=== PATIENT | male | born 1945 | race Caucasian/White ===

== ENCOUNTER 2018-06-06 09:53 | Inpatient (IN) | payer OTHER, SELFPAY ==
[2018-05-29 10:37] VITALS: BMI 33.7
[2018-05-29 13:58] VITALS: BMI 33.7
[2018-06-06] VITALS (15 sets, daily range): BP systolic 118–163; BP diastolic 58–92; PULSE 58–82; RESP 6–26; TEMP 36.1–36.8; O2SAT 92–99; BMI 33.7
--- NOTE | 2018-06-06 | DI.RAD.S_ITS ---
PROCEDURE: XR LUMBAR SPINE 2-3V INDICATIONS: L5-S1 TLIF TECHNIQUE: Fluoroscopic images were obtained during an operative procedure and submitted for interpretation following the completion of the procedure. COMPARISON: [facility] Outside Film, CT, CT LUMBAR SPINE WITHOUT CONTRAST, 04/24/2018, 18:56. [facility], , L-SPINE 2-3 VIEWS, 06/23/2016, 9:07. FINDINGS: These fluoroscopic images were performed for intraoperative localization. On these images, pedicle screws are seen from L2-S1. Disc spacers are seen throughout the fused region. No emma intraoperative complication is seen. Please correlate with intraoperative findings. IMPRESSION: Normal intraoperative examination. Dictated by: Cas Soria M.D. on 06/06/2018 at 15:48 Approved by: Cas Soria M.D. on 06/06/2018 at 15:49
[2018-06-06] MEDS: LACTATED RINGERS 1,000 ML 42 ML IV ×2 (10:47→15:14)
[2018-06-06] MEDS: fentaNYL 100 MCG/2 ML INJ 50 MCG IV ×3 (10:52→12:25)
--- NOTE | 2018-06-06 11:36 | PM.PREOP ---
Pre-operative Note Interval Note Pre-op Check: Yes History & Physical Reviewed by Physician, Yes Exam Performed and Yes History & Physical exam performed today by Physician Changes: No
[2018-06-06] MEDS: CEFAZOLIN 2 GM/100 ML FROZ.PIGGY IV ×2 (12:29→20:29)
--- NOTE | 2018-06-06 13:35 | SUR.OPER ---
Prone on spine table, head in foam head support, padded chest and pelvic supports, gel pad at knees, lower legs supported by pillows; nipples, genitalia and toes free of pressure, arms secured on foam padded arm boards at <90 degrees abduction. Tape over blanket at thigh secured to table.
[2018-06-06] MEDS: BUPIVACAINE 0.25% W/ EPI VIAL 50 ML INJ (13:42)
[2018-06-06] MEDS: BUPIVACAINE LIPOSOME 266 MG/20 ML VIAL INJ (13:42)
--- NOTE | 2018-06-06 13:44 | PM.CN ---
History of Present Illness Chief complaint: [id number] [facility] Medical History AV block, complete (Acute) Anxiety (Acute) Arrhythmia (Acute) Back pain (Acute) Cardiomyopathy (Acute) Chest heaviness (Acute) Chronic combined systolic and diastolic congestive heart failure (Acute) Coronary atherosclerosis of artery bypass graft (Acute) DVT (deep venous thrombosis) (Acute ~03/11/07) Dizziness (Acute) Dyspnea (Acute) Erectile dysfunction (Acute) GERD (gastroesophageal reflux disease) (Acute) H/O Doppler ultrasound (Acute) H/O echocardiogram (Acute) Heart failure (Acute) History of angina (Acute) History of changing skin mole (Acute ~05/23/18) History of esophageal spasm (Acute) History of nuclear stress test (Acute) Hyperlipidemia (Acute) LBBB (left bundle branch block) (Acute) Loosening of hardware in spine (Acute) Murmur (Acute) Myocardial infarction (Acute ~1985) Other specified forms of chronic ischemic heart disease (Acute) Pacemaker (Acute) Precordial pain (Acute) Shortness of breath (Acute) Spinal stenosis of lumbar region at multiple levels (Acute) Ventricular tachycardia (Acute) Surgical History History of lumbar spinal fusion (Acute) History of repair of rotator cuff (Acute) History of vasectomy (Acute) Hx of bilateral cataract extraction (Acute) Hx of total knee arthroplasty (Acute) Social History household members: spouse Smoking Status: Former smoker alcohol intake: current Meds Home Medications Medication Instructions Recorded Confirmed Type CA PANTOTHENATE/FOLIC ACID/VIT 1 tab PO QDAY #0 tab 05/15/13 06/06/18 History (MULTIVITAMIN) alprazolam 0.5 mg PO Q8H PRN #0 tab 05/15/13 06/06/18 History carvedilol [Coreg] 25 mg PO BID #0 tab 05/15/13 06/06/18 History clopidogrel [Plavix] 75 mg PO QDAY #0 tab 05/15/13 06/06/18 History fenofibrate nanocrystallized 145 mg PO QPM #0 tab 05/15/13 06/06/18 History [Tricor] furosemide 40 mg PO BID PRN #0 tab 05/15/13 06/06/18 History losartan [Cozaar] 25 mg PO HS #0 tab 05/15/13 05/29/18 History rosuvastatin [Crestor] 10 mg PO HS #0 tab 05/15/13 05/29/18 History spironolactone [Aldactone] 25 mg PO QDAY #0 tab 05/15/13 05/29/18 History vardenafil [Levitra] 10 mg PO PRN PRN #0 tab 05/15/13 History Tums 05/29/18 History aspirin 81 mg PO DAILY 05/29/18 06/06/18 History diclofenac sodium 1 g TOPICAL QID 05/29/18 06/06/18 History hydrocodone-acetaminophen 1 tab PO Q4H PRN 05/29/18 05/29/18 History nitroglycerin 1 spray SUBLINGUAL Q5M PRN 05/29/18 05/29/18 History Allergies Allergy/AdvReac Type Severity Reaction Status Date / Time morphine [MORPHINE] Allergy Mild ITCHING Verified 06/06/18 10:35 WITH TOO MUCH ondansetron Allergy Mild Rash Verified 06/06/18 10:35 hydromorphone [HYDROMORPHONE] AdvReac Severe MAKES HIM Verified 06/06/18 10:35 STOP BREATHING oxycodone [OXYCODONE] AdvReac Intermediate AGITATED, Verified 06/06/18 10:35 GI UPSET adhesive AdvReac Unknown Skin peels Verified 06/06/18 10:35 off, leaves scars isor-bid AdvReac Unknown Headaches Uncoded 06/06/18 10:35 Exam Vital Signs (past 8 hours): - 06/06/18 10:30 Temperature 97.6 F Pulse Rate 58 L Respiratory Rate 18 Blood Pressure 144/73 H Pulse Oximetry 96 Oxygen Delivery Method Room Air Assessment & Plan Plan: Assessment/Plan Narrative: 73 yo male for exploration of lumbar fusion and revision of hardware requiring electrocautery. He has a [employer] Pacemaker-Defibrillator and is pacemaker dependent. He has had episodes of non-sustained VT not requiring electrical therapy. Pacemaker Motion Picture Set Worker is present preoperatively to reprogram pacemaker to DOO mode at rate of 80 bpm. Defibrillator therapy will be disabled during the surgical procedure. The Motion Picture Set Worker will be called back in the post-op period to reprogram back to the original settings.
--- NOTE | 2018-06-06 15:45 | P.OP_ITS ---
Operative Date/Time/Diagnoses Date of procedure: 06/06/18 Time of procedure: 12:33 Pre-op diagnosis: 1. Hx L2-S1 PSF with hardware loosening and pseudoarthrosis 2. Spinal stenosis L4-5, L5-S1 3. L4-5, L5-S1 spondylosis with radiculopathy Post-op diagnosis: same Procedure & Clinicians Procedure: 1. L2-3, L3-4, L4-5, L5-S1 posterior segmental hardware removal 2. L4-5, L5-S1 revision hemilaminectomy and exploration of fusion 3. L5-S1 revision posterolateral and posterior interbody fusion 4. L5-S1 revision cage placement 5. L4-5 posterolateral fusion 6. L2-3, L3-4, L4-5, L5-S1 posterior segmental intrumentation with pedicle screw placement in L2, L3, L4, L5, S1 Same procedure as scheduled: Yes Indications: Patient has been having chronic back pain and worsening lumbar radiculopathy. Patient had history of lumbar fusion 2 years ago. Patient has good pain relief over 18 months. Patient has been having progressively worsening left leg pain with back pain over the last 6 months. Patient failed multiple conservative management with worsening pain weakness and numbness in her lower extremity. Patient has been having difficulty performing activity of daily living. After discussing risks benefits of treatment options, patient elected proceed with surgery. Surgeon: Harriet Hidalgo Professor Of Poultry Science: Anila Sexton Click Yes if Unassisted: No Anesthesia Type: General Operative Notes Closure Type: primary Specimen(s): none sent Implants & Drains: Globus revolve screws and Rise cage Applied: catheter Estimated Blood Loss (mL): 70 Blood products transfused: none Procedure in detail: Patient was seen in the preoperative area. Risks and benefits of the surgery was discussed with the patient. Informed consent was obtained from the patient and placed in the chart. Surgical site was marked. Patient was taken to the operative room. General anesthesia was administered. Prophylactic antibiotic was given to the patient less than 30 min before the incision was made. Patient was placed into a prone position on the Tyler table. Patient's back was then prepped and draped in the sterile fashion. Time- out was performed at this time. Using patient's previous scar incision was made over the L2-3 L3-4 L4-5 L5-S1 interval on the left side. Fascia was incised in line with skin incision. Patient's previously placed hardware over the L2-3 L3-4 L4-5 L5-S1 level was identified by dissecting down to the level the hardware using a Bovie and a Rasheed. The locking caps which was removed using globus screwdriver. The locking ayse was then removed from the tulips of the pedicle screws using a Pita. The pedicle screws were then removed using the screwdriver. The screws were found to have good purchase. The Globus and MARS retractors was then placed into the wound and docked onto the L4 and L5 lamina using C-arm guidance. Using microsurgical technique and operating microscope a laminectomy facetectomy was performed by removing the L5 lamina and the L5-S1 facet. The disc space at L5-S1 level was identified next. There is visible motion at the L5-S1 level as well as L4-5 indicating pseudoarthrosis at both levels. And the interobody cage is found to be loose at L5-S1 level. Revision diskectomy was performed at L5-S1 level. The endplates were decorticated using a rasp and shaver. The total diskectomy and decortication was performed at L5-S1 level in order to to accomplish a L5-S1 fusion. The local bone from the laminectomy and facetectomy was saved for local bone grafting. After the total diskectomy and decortication was completed , Globus viacell bone graft material was combined with local bone that was harvested earlier. The interbody cage was re-attched to the fabrication supervisor and removed from the disc space. A thorough disc preparation was performed in preparation for interbody fusion at L5-S1 level. The bone grafting material was placed into the L5-S1 interbody space along with a expandable cage. The cage was expanded to its maximum height using the torque limiting screwdriver. At this time a mirror image incision was made on the left side. The fascia was incised in line with the skin incision. Patient's previously placed hardware on the left side was then removed in the same fashion as it was on the right side. The hardware was also found to have good purchase. The fusion mass on the left side was exposed by performing a left-sided hemilaminectomy at L4-5 level. The hemilaminectomy was performed using the Kerrison rongeur to undercut the lamina as well removing additional epidural scar tissue for purpose of decompressing the epidural space. The fusion mass was explored and was found have visible motion indicating pseudoarthrosis. Globus MARS retractor was inserted and docked onto the L4-5 L5-S1 posterolateral gutter. Using the power drill, posterior-lateral decortication was performed at L4-5 L5-S1 level until bleeding cortical bone was identified. The remaining bone grafting material was placed into the L4-5 L5-S1 posterior lateral gutter he order to accomplish posterolateral fusion at the L4-5 L5-S1 level. Using the double C-arm technique, pedicle screws were placed into the L2-L3-L4- L5 and S1 pedicles on the left. This was done by placing the Jamshidi needle into the pedicles, then placing the guidewires over the Jamshidi needle, and finally placing the cannulated screws over the guidewires bilaterally. After the pedicle screws were placed, 1 titanium rods was locked into the heads of the pedicle screws using locking caps and torque limiting screwdriver. Larger screws were placed into L4 and S1 pedicles since they were found to be loose. After all the hardware was placed, and confirmed with AP and lateral C-arm imaging, the wound was then irrigated with sterile normal saline and packed with Ray-Reid gauze for 3 min to accomplish hemostasis. After the gauze was removed the deep fascia was closed with #1 Vicryl suture. The subcutaneous layer was closed with 2-0 Vicryl. The skin was closed with skin michelle. Patient tolerated the procedure well. There were no complications. Complications: none Condition: stable Disposition: ICU Plan for aftercare: Admit to ICU
--- NOTE | 2018-06-06 16:08 | SUR.PHASEI ---
Art line in place, zeroed, Keng cdi. Patient moaning intermittently, medicated with dilaudid by Dr. Martinez.
[2018-06-06] MEDS: hydrOXYzine 50 MG/ML INJ 25 MG IM (16:39)
--- NOTE | 2018-06-06 17:06 | SUR.PHASEI ---
Report called to NILTON Andre. Pt transferred to ICU with monitor. Report given to NILTON Andre. VS stable, Art line patent. Belongings bag and CPAP in room. Pt reported 4/10 pain. Dressing checked with RN. VS erased from PACU monitor.
--- NOTE | 2018-06-06 17:27 | P.CONS_ITS ---
History of Present Illness Chief complaint: [id number] [facility] Medical History AV block, complete (Acute) Anxiety (Acute) Arrhythmia (Acute) Back pain (Acute) Cardiomyopathy (Acute) Chest heaviness (Acute) Chronic combined systolic and diastolic congestive heart failure (Acute) Coronary atherosclerosis of artery bypass graft (Acute) DVT (deep venous thrombosis) (Acute ~03/11/07) Dizziness (Acute) Dyspnea (Acute) Erectile dysfunction (Acute) GERD (gastroesophageal reflux disease) (Acute) H/O Doppler ultrasound (Acute) H/O echocardiogram (Acute) Heart failure (Acute) History of angina (Acute) History of changing skin mole (Acute ~05/23/18) History of esophageal spasm (Acute) History of nuclear stress test (Acute) Hyperlipidemia (Acute) LBBB (left bundle branch block) (Acute) Loosening of hardware in spine (Acute) Murmur (Acute) Myocardial infarction (Acute ~1985) Other specified forms of chronic ischemic heart disease (Acute) Pacemaker (Acute) Precordial pain (Acute) Shortness of breath (Acute) Spinal stenosis of lumbar region at multiple levels (Acute) Ventricular tachycardia (Acute) Surgical History History of lumbar spinal fusion (Acute) History of repair of rotator cuff (Acute) History of vasectomy (Acute) Hx of bilateral cataract extraction (Acute) Hx of total knee arthroplasty (Acute) Social History household members: spouse Smoking Status: Former smoker alcohol intake: current Meds Home Medications Medication Instructions Recorded Confirmed Type CA PANTOTHENATE/FOLIC ACID/VIT 1 tab PO QDAY #0 tab 05/15/13 06/06/18 History (MULTIVITAMIN) alprazolam 0.5 mg PO Q8H PRN #0 tab 05/15/13 06/06/18 History carvedilol [Coreg] 25 mg PO BID #0 tab 05/15/13 06/06/18 History clopidogrel [Plavix] 75 mg PO QDAY #0 tab 05/15/13 06/06/18 History fenofibrate nanocrystallized 145 mg PO QPM #0 tab 05/15/13 06/06/18 History [Tricor] furosemide 40 mg PO BID PRN #0 tab 05/15/13 06/06/18 History losartan [Cozaar] 25 mg PO HS #0 tab 05/15/13 05/29/18 History rosuvastatin [Crestor] 10 mg PO HS #0 tab 05/15/13 05/29/18 History spironolactone [Aldactone] 25 mg PO QDAY #0 tab 05/15/13 05/29/18 History vardenafil [Levitra] 10 mg PO PRN PRN #0 tab 05/15/13 History Tums 05/29/18 History aspirin 81 mg PO DAILY 05/29/18 06/06/18 History diclofenac sodium 1 g TOPICAL QID 05/29/18 06/06/18 History hydrocodone-acetaminophen 1 tab PO Q4H PRN 05/29/18 05/29/18 History nitroglycerin 1 spray SUBLINGUAL Q5M PRN 05/29/18 05/29/18 History Allergies Allergy/AdvReac Type Severity Reaction Status Date / Time morphine [MORPHINE] Allergy Mild ITCHING Verified 06/06/18 10:35 WITH TOO MUCH ondansetron Allergy Mild Rash Verified 06/06/18 10:35 hydromorphone [HYDROMORPHONE] AdvReac Intermediate Verified 06/06/18 14:09 oxycodone [OXYCODONE] AdvReac Intermediate AGITATED, Verified 06/06/18 10:35 GI UPSET adhesive AdvReac Unknown Skin peels Verified 06/06/18 10:35 off, leaves scars isor-bid AdvReac Unknown Headaches Uncoded 06/06/18 10:35 Review of Systems Review of Systems All systems reviewed & are unremarkable except as noted in HPI and below Exam Vital Signs (past 8 hours): - 06/06/18 10:30 06/06/18 15:51 06/06/18 15:56 Temperature 97.6 F 97.2 F L Pulse Rate 58 L 80 80 Respiratory Rate 18 10 L 11 L Blood Pressure 144/73 H 144/88 H 151/92 H Pulse Oximetry 96 97 93 06/06/18 16:01 06/06/18 16:06 06/06/18 16:21 Temperature Pulse Rate 80 80 Respiratory Rate 11 L 12 Blood Pressure 148/76 H 148/75 H 125/66 Pulse Oximetry 98 97 Oxygen Delivery Method Room Air Oxygen Flow Rate 2 Narrative Exam Narrative: Pleasant male with CPAP mask in place, awake, alert, and appropriate HEENT: NC/ AT, EOMI, Oropharynx clear Lungs: clear to auscultation CV: RRR nl Sl S2 2/6 MANOJ Abd: soft/ non tender/ non distended/ quiet bowel tones, no HSM EXT: foot pumps in place no edema Skin: no lesions Neuro: non focal Psych: appropriate, no hallucinations Objective Labs Labs: 04/24/2018 labs reviewed Assessment & Plan (1) Coronary artery disease: Problem details: Patient followed by Dr. Verduzco at [facility], cardiology. He has known moderate threshold angina, with non-proximal two-vessel ischemia seen on nuclear stress testing. Patient known to be at moderate risk, but given debilitating back pain allowed to proceed to surgery. For now will resume his B- denis. Will resume Plavix when OK by Ortho. Plans are for the patient to have cardiac catherization electively following recovery from his surgery Current visit: No Status: Acute (2) Ischemic cardiomyopathy: Problem details: Patient has known Systolic Dysfunction with an ECho revealing and LVEF of 30%, Multivessel CAD and hypokinetic, inferolateral, metz, and akinetic inferior emtz which are severely hypokinetic. For now continue his usual antianginal medications Current visit: No Status: Acute (3) History of ventricular tachycardia: Problem details: Patient has a pacer/ AICD in place. AICD turned off for the procedure/ Pacer tech to reprogram and resume Current visit: No Status: Acute (4) ESSENTIAL (PRIMARY) HYPERTENSION: Problem details: Continue usual antihypertensives Current visit: No Status: Acute (5) Sleep apnea with use of continuous positive airway pressure (CPAP): Current visit: No Status: Acute (6) GERD (gastroesophageal reflux disease): Problem details: Continue PPI Current visit: No Status: Acute (7) Spinal stenosis, lumbar region, with neurogenic claudication: Problem details: s/p removal of hardware from L2- S1 Current visit: No Status: Acute Plan: Assessment/Plan Narrative: Will continue to follow the patient with you. Thank YOu very much for this consultation
[2018-06-06] MEDS: HYDROCODONE/ACET EXLIXIR 7.5-325/15 ML PO ×2 (19:28→23:50)
[2018-06-06] MEDS: CARVEDILOL 25 MG TABLET PO (21:39)
[2018-06-06] MEDS: SENNOSIDES 8.6 MG TABLET 17.2 MG PO (21:39)
[2018-06-06] MEDS: DOCUSATE 100 MG CAPSULE PO (21:39)
[2018-06-06] MEDS: ROSUVASTATIN 10 MG TABLET PO (21:39)
[2018-06-06] MEDS: hydrOXYzine pamoate 25 MG CAPSULE PO (23:49)
[2018-06-07] VITALS (10 sets, daily range): BP systolic 110–148; BP diastolic 54–67; PULSE 59–75; RESP 16–18; TEMP 36.2–36.9; O2SAT 95–98
[2018-06-07] MEDS: CEFAZOLIN 2 GM/100 ML FROZ.PIGGY IV (03:42)
--- NOTE | 2018-06-07 04:08 | PC.NURSE ---
Pt IV noted to be infiltrated, discontinued. Unable to find other peripheral access. Dr. Parsons made aware. Order for non-emergent PICC placement today.
[2018-06-07] MEDS: HYDROCODONE/ACET EXLIXIR 7.5-325/15 ML PO ×2 (04:25→08:41)
[2018-06-07 06:11] LABS: Hematocrit 37.4 % (41-53); Hemoglobin 12.7 g/dL (13.5-17.5)
[2018-06-07] MEDS: MULTIVITAMIN 1 TABLET 1 TAB PO (08:42)
[2018-06-07] MEDS: CARVEDILOL 25 MG TABLET PO (08:42)
[2018-06-07] MEDS: DOCUSATE 100 MG CAPSULE PO ×2 (08:42→20:55)
[2018-06-07] MEDS: SPIRONOLACTONE 25 MG TABLET PO (08:42)
--- NOTE | 2018-06-07 09:04 | PM.DS.1 ---
History of Present Illness Date Patient Seen: 06/07/18 Time Patient Seen: 09:04 Chief complaint: [id number] Narrative: Details of the patient's H&P can be found on the electronic chart. Discharge Providers Date of admission: 06/06/18 09:53 Primary care physician: Ranjan Gomez MD Consults: 06/06/18 17:30 Consult to Respiratory Therapy Evaluate & Treat Comment: PT HAS HOME CPAP Physician Instructions: Evaluate and treat 06/06/18 18:21 Consult to Occupational Therapy Evaluate & Treat Comment: Physician Instructions: Evaluate and treat Consult to Physical Therapy Evaluate & Treat Comment: Physician Instructions: Evaluate and Treat 06/07/18 04:14 Consult to PICC Line RN Routine Comment: Discharge provider: Italia Pierre PA-C Summary Discharge Diagnosis: 1. History of L2-S1 PSF with hardware loosening and pseudoarthrosis 2. Spinal stenosis L4-5, L5-S1 3. L4-5, L5-S1 spondylosis with radiculopathy 4. Sleep apnea 5. Coronary artery disease 6. History of ventricular tachycardia with the pacemaker intact. Hospital Course: Patient was admitted and taken operating room where he had a revision fusion by Dr. Hidalgo. Afterwards he was admitted to the ICU for observation due to his cardiac issues. On during the night he was given Xanax and Vistaril a short amount of time and developed palpitations. He was monitored and palpitations are resolved. Postop day 1 patient is eating and drinking well, urinating without difficulty, pain is controlled and he is ambulating well. He would like to be discharged home today. His IV became infiltrated and he only got 1 dose of postoperative Ancef. Dose of oral Keflex ordered for him. Status at Discharge Cognitive/behavioral status at discharge: Alert orient x3 Functional status at discharge: uses cane/walker Time Spent with Patient Less than 30 minutes Exam Vital Signs (past 8 hours): - 06/07/18 03:38 06/07/18 08:54 Temperature 97.7 F 97.9 F Pulse Rate 69 69 Respiratory Rate 17 17 Blood Pressure 110/66 132/65 Pulse Oximetry 96 95 Oxygen Delivery Method Nasal Cannula,CPAP Oxygen Flow Rate 2 Narrative Exam Narrative: Patient is sitting up in chair. Alert and orient x3. Back dressing is clean and dry but is starting to roll up. Bilateral calf soft and nontender. Neurovascular status intact. 5/5 BLE. Right shoulder with well healed surgical incision. Objective Labs Result Diagrams: 06/07/18 04:57 Labs: Laboratory Results - last 24 hr 06/07/18 04:57 Hgb 12.7 L Hct 37.4 L Discharge Plan Discharge Plan Patient Disposition: Home Discharge Med Rec/Prescriptions Prescriptions: New hydrocodone-acetaminophen [Ranchita] 7.5-325 mg tablet 2 tab PO Q4-6H PRN (Reason: pain) Qty: 60 RF: 0 Continue fenofibrate nanocrystallized [Tricor] 145 MG tablet 145 mg PO QPM Qty: 0 RF: 0 carvedilol [Coreg] 25 MG tablet 25 mg PO BID Qty: 0 RF: 0 alprazolam 0.5 MG tablet 0.5 mg PO Q8H PRN (Reason: Anxiety) Qty: 0 RF: 0 rosuvastatin [Crestor] 20 MG tablet 10 mg PO HS Qty: 0 RF: 0 losartan [Cozaar] 25 MG tablet 25 mg PO HS Qty: 0 RF: 0 CA PANTOTHENATE/FOLIC ACID/VIT (MULTIVITAMIN) 1 tab PO QDAY Qty: 0 RF: 0 furosemide 40 MG tablet 40 mg PO BID PRN (Reason: Nocturia) Qty: 0 RF: 0 spironolactone [Aldactone] 25 MG tablet 25 mg PO QDAY Qty: 0 RF: 0 clopidogrel [Plavix] 75 MG tablet 75 mg PO QDAY Qty: 0 RF: 0 vardenafil [Levitra] 10 MG tablet 10 mg PO PRN PRN (Reason: Erectile Dysfunction) Qty: 0 RF: 0 nitroglycerin 400 mcg/spray Aerosol,Henderson 1 spray Sublingual Q5M PRN (Reason: Chest Pain) RF: 0 aspirin 81 mg Tablet,Delayed Release (Dr/Ec) 81 mg PO DAILY RF: 0 diclofenac sodium 1 % Gel 1 g TOPICAL QID RF: 0 Tums RF: 0 Discontinued hydrocodone-acetaminophen 7.5-325 mg Tablet 1 tab PO Q4H PRN (Reason: Pain) RF: 0 Provider Discharge Instructions Diet: Diet as Tolerated Activity: Activity as tolerated. No heavy lifting bending or twisting. Cold/Heat Therapy: Apply ice as needed for pain and inflammation. Do not apply directly onto the skin. Skin/Wound/Dressing Care Report to your healthcare provider any signs of infection, such as:: chills, fever, increased pain and unusual drainage Dressing: Keep dressing intact. Discharge Data Primary Care Provider: Ranjan Gomez Attending Provider: Harriet Hidalgo Admit Date/Time: 06/06/18 09:53
--- NOTE | 2018-06-07 09:25 | PT.IIE ---
Current Diagnoses Sleep apnea, unspecified (06/06/18) Atherosclerotic heart disease of [place] coronary artery without angina pectoris (06/06/18) Ischemic cardiomyopathy (06/06/18) Spinal stenosis, lumbar region without neurogenic claudication (06/06/18) Spinal stenosis, lumbar region with neurogenic claudication (06/06/18) Shortness of breath (06/06/18) Other mechanical complication of other internal orthopedic devices, implants and grafts, initial encounter (06/06/18) Personal history of other diseases of the circulatory system (06/06/18) Arthrodesis status (06/06/18) Surgery Performed Operation Date: 06/06/18 12:15 Actual Procedures p L2-S1 Lumbar HWR,Exploration of fusion,Repeat Laminectomy,Reinsertion of HWR, L4-5,L5-S1 Laminectomy, L4-5,L5-S1 PSF, L2-S1 Instrumentation - Harriet Hidalgo MD Surgical History (Last Reviewed 06/06/18 @ 17:17 by Francisca Overton MD) History of lumbar spinal fusion (Acute) History of repair of rotator cuff (Acute) History of vasectomy (Acute) Hx of bilateral cataract extraction (Acute) Hx of total knee arthroplasty (Acute) Medical History (Last Reviewed 06/06/18 @ 17:17 by Francisca Overton MD) AV block, complete (Acute) Anxiety (Acute) Arrhythmia (Acute) Back pain (Acute) Cardiomyopathy (Acute) Chest heaviness (Acute) Chronic combined systolic and diastolic congestive heart failure (Acute) Coronary atherosclerosis of artery bypass graft (Acute) DVT (deep venous thrombosis) (Acute ~03/11/07) Dizziness (Acute) Dyspnea (Acute) Erectile dysfunction (Acute) GERD (gastroesophageal reflux disease) (Acute) H/O Doppler ultrasound (Acute) H/O echocardiogram (Acute) Heart failure (Acute) History of angina (Acute) History of changing skin mole (Acute ~05/23/18) History of esophageal spasm (Acute) History of nuclear stress test (Acute) Hyperlipidemia (Acute) LBBB (left bundle branch block) (Acute) Loosening of hardware in spine (Acute) Murmur (Acute) Myocardial infarction (Acute ~1985) Other specified forms of chronic ischemic heart disease (Acute) Pacemaker (Acute) Precordial pain (Acute) Shortness of breath (Acute) Spinal stenosis of lumbar region at multiple levels (Acute) Ventricular tachycardia (Acute) Physical Therapy Inpatient Evaluation/Re-Eval M1 PT/OT-IP Prior Functional Status Start: 06/07/18 11:06 Freq: NEEDED Status: Active Protocol: Document 06/07/18 09:25 AB (Rec: 06/07/18 11:26 AB [id number]) Medical Review Prior Functional Status Medical History Reviewed Yes Communication able to make needs known Mobility and Gait pt stated that he is modified independent with all mobilities and ambulation without AD with occasional use of SPC occasionally depending on pain Social History Household Members spouse Living Arrangements House Number of Floors (Floors) One Floor Number of Stairs To Enter/Railing? has 2 platform steps to enter Home Environment High Toilet Walk in Shower Built-In Shower Seat Home Equipment Front Wheel Walker Straight Cane Hand Held Shower Grab Bars In Shower Employment Status Retired M2 PT-IP Current Condition Start: 06/07/18 11:06 Freq: NEEDED Status: Active Protocol: Document 06/07/18 09:25 AB (Rec: 06/07/18 11:26 AB [id number]) Physical Therapy Current Condition Current Condition Evaluation Date 06/07/18 Treatment Diagnosis s/p L2-S1 hardware removal & fusion, L4-5 L5S1 revision lami and fusion Onset Date 06/06/18 Precautions Lumbar Precautions Log Roll No Twisting Limit Bending Lifting Restriction of 10 lbs Gait Belt above Incisional Area M3 PT-IP Subjective Start: 06/07/18 11:06 Freq: NEEDED Status: Active Protocol: Document 06/07/18 09:25 AB (Rec: 06/07/18 11:26 AB [id number]) Subjective Physical Therapy Visit Type Type Initial Evaluation Visit Start Time 09:25 Visit Stop Time 09:52 Total Visit Minutes 27 Number of PIANO MECHANIC Visits 0 Physical Therapy Visit Comments Patient Comments pt agreeable to do PT Therapy Pain Assessment Pain When Pain Assessed At Rest Pain Present Pain Present Pain Reported Location Lower Back Intensity 6 Scale Used Numeric (1 - 10) Pain Management Techniques Re-positioning Timing of Activity with Medications M4 PT-IP Mobility and Gait Start: 06/07/18 11:06 Freq: NEEDED Status: Active Protocol: Document 06/07/18 09:25 AB (Rec: 06/07/18 11:26 AB [id number]) PT-Bed Mobility Assessment Rolling Type of Rolling Log Rolling Level of Assist Standby Assistance Supine to Sit Supine to Sit Standby Assistance Sit to Supine Sit to Supine Standby Assistance Scooting Scooting to Edge of Bed Standby Assistance PT-Transfer Assessment Sit to and From Stand Sit to and from Stand Standby Assistance Equipment Transfer Assistive Device Gait Belt Front Wheeled Walker Orthotic/Prosthetic Devices or Brace: No Gait Assessment Gait Gait Assistance Required: Standby Assistance Distance (Feet) 50 Able to Maintain Weight Bearing Status Yes During Gait Assistive Devices Assistive Device Gait Belt Front Wheeled Walker Orthotic/Prosthetic Devices or Brace: No Gait Deviations General Gait Pattern Decreased Stride Length Decreased Feet Clearance Factors Limiting Gait Function Factors Limiting Gait Function Decreased Activity Tolerance Decreased Strength Limited Range of Motion Pain Stair Climbing Assessment Evaluation Level of Assist On Stairs Standby Assistance Devices Stair Climbing Assistive Devices Front Wheel Walker Technique/Endurance Stair Climbing Direction Ascend and Descend Number of Steps Climbed 1 Query Text: Stair Climbing Set # Repetitions (reps) 1 Comments Stair Climbing Comments simulated up/down 1 platform step with step stool and pt completed with SBA PT-Balance Assessment Sitting Balance and Reactions Static Sitting Balance Ability Good Dynamic Sitting Balance Ability Good Standing Balance and Reactions Static Standing Balance Ability Fair Dynamic Standing Balance Ability Fair Device Used FWW M5 PT-IP Objective Assessments Start: 06/07/18 11:06 Freq: NEEDED Status: Active Protocol: Document 06/07/18 09:25 AB (Rec: 06/07/18 11:26 AB [id number]) Orientation Orientation/Cognition Level of Alertness Alert Orientation Name Age Birthday Month Date Year Day of Week Place Situation Safety Awareness Understands Safety Issues Gross Range of Motion Lower Extremity ROM Assessment Within Functional Limits Strength Lower Extremity Strength Assessment Within Functional Limits Muscle Tone Muscle Tone WNL Yes M6 PT-IP Treatment Start: 06/07/18 11:06 Freq: NEEDED Status: Active Protocol: Document 06/07/18 09:25 AB (Rec: 06/07/18 11:26 AB [id number]) Physical Therapy Treatment Education Education Provided Precautions Weight Bearing Status Post-Op Packet Safety M7 PT-IP Assessment and Plan Start: 06/07/18 11:06 Freq: NEEDED Status: Active Protocol: Document 06/07/18 09:25 AB (Rec: 06/07/18 11:26 AB [id number]) PT Summary Assessment and Plan Potential Rehabilitation Potential Good Status of Condition at Evaluation Stable Summary Impairments Pain ROM Strength Balance Bed Mobility Transfers Gait Activity Tolerance Assessment Summary pt requiring SBA with mobility and plans to go home with spouse to assist him. pt may go home when medically stable. Goals Bed Mobility Goal Independent Transfer Goal Independent Gait Goal Independent Gait Distance 150 Other Goals up/down 2 platform steps using FWW Mod I Days to Meet Goals 2 Frequency of Treatment Frequency Of Treatment Twice a Day Treatment Plan Physical Therapy Treatment Plan Bed Mobility Training Transfer Training Gait Training Therapeutic Exercise Balance Retraining Post Op Education Discharge Planning Hot or Cold Pack Neuromuscular Re-ed Coordination Retraining Manual Therapy Recommendations To Nursing Amount of Assist Needed Standby Assistance Discharge Recommendations PT Discharge Recommendations Home with Assistance
[2018-06-07] MEDS: cephALEXin 250 MG CAPSULE 500 MG PO ×2 (09:27→14:02)
[2018-06-07] MEDS: ALPRAZolam 0.5 MG TABLET PO (10:28)
--- NOTE | 2018-06-07 11:33 | OT.IP.TRT ---
Current Diagnoses Sleep apnea, unspecified (06/06/18) Atherosclerotic heart disease of [place] coronary artery without angina pectoris (06/06/18) Ischemic cardiomyopathy (06/06/18) Spinal stenosis, lumbar region without neurogenic claudication (06/06/18) Spinal stenosis, lumbar region with neurogenic claudication (06/06/18) Shortness of breath (06/06/18) Other mechanical complication of other internal orthopedic devices, implants and grafts, initial encounter (06/06/18) Personal history of other diseases of the circulatory system (06/06/18) Arthrodesis status (06/06/18) Surgery Performed Operation Date: 06/06/18 12:15 Actual Procedures p L2-S1 Lumbar HWR,Exploration of fusion,Repeat Laminectomy,Reinsertion of HWR, L4-5,L5-S1 Laminectomy, L4-5,L5-S1 PSF, L2-S1 Instrumentation - Harriet Hidalgo MD Occupational Therapy Treatment Note M3 OT- IP Subjective and Pain Start: 06/07/18 11:31 Freq: Status: Active Protocol: Document 06/07/18 11:31 [facility] (Rec: 06/07/18 11:33 [facility] [id number]) OT- Subjective Occupational Therapy Visit Type Type Administrative Note Notes Spoke to pt regrading OT needs for OT eval, pt states has had back surgery in 07/02 and has all OT AED, equipment, set -up at home and has good understanding to assist pt for all needs. Therefore pt feels no need to have OT eval at this time. Therefore discharge OT eval order. PT following pt for mobility and discharge needs.
[2018-06-07] MEDS: HYDROCODONE/ACET EXLIXIR 7.5-325/15 ML 30 ML PO ×3 (12:17→20:55)
--- NOTE | 2018-06-07 12:56 | CM.DANOTE ---
Discharge Planning/Care Management CM Discharge Assessment Start: 06/07/18 12:55 Freq: Status: Active Protocol: Document 06/07/18 12:55 (Rec: 06/07/18 12:56 [id number]) Discharge Planning Assessment Assigned Travograph Operator ONEAL Alvarez Advance Directives? No History Provided By Patient Medical Record Has Patient been admitted in last 30 No days? Prior Living Arrangements House Household Members spouse Type of transporation used prior to Drives own vehicle admit Independent with ADL's Yes Is patient alert and oriented? Yes Caregiver for Another No Patient/Family Preference OP PT Therapy Barriers to Discharge No Discharge Plan Home Referrals Initiated None needed
--- NOTE | 2018-06-07 13:52 | PC.NURSE ---
back dressing changed this morning. site with michelle, intact. pt with increased pain to back. I think I twisted reaching for the bed rail. [place] PAC notified to increase pain med.
--- NOTE | 2018-06-07 14:32 | PC.NURSE ---
[facility] PUTNAM notified of cancelled discharge order due to increase back pain. pt now floor care, no tele. Elvia CALLAWAY in DI starting a saline lock.
[2018-06-07] MEDS: HYDROMORPHONE 0.5 MG INJ IV (15:20)
--- NOTE | 2018-06-07 15:37 | PT.IPTN ---
Current Diagnoses Sleep apnea, unspecified (06/06/18) Atherosclerotic heart disease of [place] coronary artery without angina pectoris (06/06/18) Ischemic cardiomyopathy (06/06/18) Spinal stenosis, lumbar region without neurogenic claudication (06/06/18) Spinal stenosis, lumbar region with neurogenic claudication (06/06/18) Shortness of breath (06/06/18) Other mechanical complication of other internal orthopedic devices, implants and grafts, initial encounter (06/06/18) Personal history of other diseases of the circulatory system (06/06/18) Arthrodesis status (06/06/18) Surgery Performed Operation Date: 06/06/18 12:15 Actual Procedures p L2-S1 Lumbar HWR,Exploration of fusion,Repeat Laminectomy,Reinsertion of HWR, L4-5,L5-S1 Laminectomy, L4-5,L5-S1 PSF, L2-S1 Instrumentation - Harriet Hidalgo MD Physical Therapy Treatment Note M2 PT-IP Current Condition Start: 06/07/18 11:06 Freq: NEEDED Status: Active Protocol: Document 06/07/18 09:25 AB (Rec: 06/07/18 11:26 AB [id number]) Physical Therapy Current Condition Current Condition Evaluation Date 06/07/18 Treatment Diagnosis s/p L2-S1 hardware removal & fusion, L4-5 L5S1 revision lami and fusion Onset Date 06/06/18 Precautions Lumbar Precautions Log Roll No Twisting Limit Bending Lifting Restriction of 10 lbs Gait Belt above Incisional Area M3 PT-IP Subjective Start: 06/07/18 11:06 Freq: NEEDED Status: Active Protocol: Document 06/07/18 15:36 GGD (Rec: 06/07/18 15:37 GGD [id number]) Subjective Physical Therapy Visit Type Type Patient Refusal Notes Pt states having to much pain. will see in AM. Recommendations To Nursing Amount of Assist Needed Standby Assistance Discharge Recommendations PT Discharge Recommendations Home with Assistance
--- NOTE | 2018-06-07 17:18 | PM.PN.1 ---
Subjective Interval history: THE PATIENT WAS ACTUALLY SEEN APPROXIMATELY 730 THIS MORNING. NOTICE JUST BEING PLACED NOW. Patient without complaint chest pain short of breath PND orthopnea Exam Vital Signs (past 8 hours): - 06/07/18 10:10 06/07/18 11:21 06/07/18 12:32 Temperature 98.2 F Pulse Rate 63 Respiratory Rate 16 Blood Pressure 126/67 Pulse Oximetry 97 98 96 06/07/18 13:48 06/07/18 15:44 Temperature 97.9 F Pulse Rate 73 Respiratory Rate 18 Blood Pressure 113/67 Pulse Oximetry 96 96 Oxygen Delivery Method Room Air Oxygen Flow Rate 0 Narrative Exam Narrative: General NAD HEENT normocephalic atraumatic extraocular movement was intact pupils were equal round reactive sclera were nonicteric oropharynx was clear Neck supple without thyromegaly bruits or jugular venous distension Thorax sternotomy scar Respiratory clear to auscultation Cardiovascular regular rhythm S1-S2 was normal there were no lifts ease rubs murmurs gallops present Abdomen benign bowel sounds active : Villegas in place Neurologic grossly physiologic Psychiatric mood and affect were normal awake alert oriented x3 Objective Labs Result Diagrams: 06/07/18 04:57 Labs: Laboratory Results - last 24 hr 06/07/18 04:57 Hgb 12.7 L Hct 37.4 L Assessment & Plan Plan: Assessment/Plan Narrative: (1) Multivessel CAD Stable without any complaints of chest pain Plan Continue outpatient medications (2) Ischemic cardiomyopathy w/LVEF of 30% Plan Continue his usual antianginal medications (3) History of ventricular tachycardia;pacer/ AICD in place. AICD turned off for the procedure Plan Pacer tech to reprogram and resume (4) ESSENTIAL (PRIMARY) HYPERTENSION: Plan (5) Sleep apnea Plan Continue use of CPAP (6) GERD (gastroesophageal reflux disease): Plan Continue PPI (7) Spinal stenosis, lumbar region, with neurogenic claudication: He is postop day 1 removal of hardware from L2- S1, revision of L5/S1 and L4/5 he me laminectomy and exploration of fusion, revision L5/S1 posterior lateral and posterior interbody fusion, L5/S1 revision cage placement, L5/L4 posterior lateral fusion, L2/3, L3/4, L4/5, L5/S1 posterior segment instrumentation with pedicle screw placement and L2, L3, L4, L5, S1 Plan: Postop care per Orthopedics
[2018-06-07] MEDS: ROSUVASTATIN 10 MG TABLET PO (20:55)
[2018-06-07] MEDS: LOSARTAN 25 MG TABLET PO (20:55)
[2018-06-07] MEDS: SENNOSIDES 8.6 MG TABLET 17.2 MG PO (20:56)
--- NOTE | 2018-06-07 21:43 | PC.NURSE ---
2129 - Went to give patient HS medications and patient stated he already took his after dinner pills. Questioned patient regarding this and patient pulled out 3 pill dispensers that he states his brought in for him. He stated that he took the dinner pills, but not the bedtime pills yet. Clarified which pills patient took and which ones he still needed this evening. Educated patient on not taking own medications while in the hospital and locked patient's pills up in pharmacy.
[2018-06-08] MEDS: HYDROCODONE/ACET EXLIXIR 7.5-325/15 ML PO ×2 (01:24→05:38)
[2018-06-08] MEDS: ALPRAZolam 0.25 MG TABLET 0.5 MG PO ×2 (01:25→05:38)
[2018-06-08 03:45] VITALS: BP 118/62; PULSE 56; RESP 15; TEMP 37.1; O2SAT 95
[2018-06-08 07:00] VITALS: BP 114/56; PULSE 61; RESP 16; TEMP 36.1; O2SAT 95
[2018-06-08] MEDS: MULTIVITAMIN 1 TABLET 1 TAB PO (09:07)
[2018-06-08] MEDS: CARVEDILOL 25 MG TABLET PO (09:07)
[2018-06-08] MEDS: DOCUSATE 100 MG CAPSULE PO (09:07)
[2018-06-08] MEDS: SPIRONOLACTONE 25 MG TABLET PO (09:08)
[2018-06-08] MEDS: INFLUENZA VACCINE 0.5 ML SYRINGE IM (09:10)
--- NOTE | 2018-06-08 09:15 | PM.PN.1 ---
Subjective Interval history: Patient had increased pain yesterday and therefore was not discharged. Patient states that his pain is much better today. He has no nausea or vomiting. There is no shortness of breath or chest discomfort Exam Vital Signs (past 8 hours): - 06/08/18 03:45 06/08/18 07:00 Temperature 98.7 F 97.0 F L Pulse Rate 56 L 61 Respiratory Rate 15 16 Blood Pressure 118/62 114/56 L Pulse Oximetry 95 95 Oxygen Delivery Method Room Air Oxygen Flow Rate 0 Narrative Exam Narrative: General NAD HEENT normocephalic atraumatic extraocular movement was intact pupils were equal round reactive sclera were nonicteric oropharynx was clear Neck supple without thyromegaly bruits or jugular venous distension Thorax sternotomy scar Respiratory clear to auscultation Cardiovascular regular rhythm S1-S2 was normal there were no lifts ease rubs murmurs gallops present Abdomen benign bowel sounds active Neurologic grossly physiologic Psychiatric mood and affect were normal awake alert oriented x3 Objective Labs Result Diagrams: 06/07/18 04:57 Assessment & Plan Plan: Assessment/Plan Narrative: (1) Multivessel CAD Stable without any complaints of chest pain chest tightness or chest discomfort Plan Continue outpatient medications (2) Ischemic cardiomyopathy w/LVEF of 30% He has no problems with the shortness of breath, PND Plan Continue his usual outpatient medication (3) History of ventricular tachycardia:pacer/ AICD in place. Plan AICD has been reactivated (4) ESSENTIAL (PRIMARY) HYPERTENSION: Blood pressures been controlled over the past 24 hr. Blood pressures have been 114/50 6-140 8/54 Plan Continue outpatient medications (5) Sleep apnea Plan Continue use of CPAP (6) GERD (gastroesophageal reflux disease): Plan Continue PPI (7) Spinal stenosis, lumbar region, with neurogenic claudication: POST DAY 2 removal of hardware from L2- S1, revision of L5/S1 and L4/5 he me laminectomy and exploration of fusion, revision L5/S1 posterior lateral and posterior interbody fusion, L5/S1 revision cage placement, L5/L4 posterior lateral fusion, L2/3, L3/4, L4/5, L5/S1 posterior segment instrumentation with pedicle screw placement and L2, L3, L4, L5, S1 Plan: Postop care per Orthopedics
--- NOTE | 2018-06-08 09:25 | PT.IPTN ---
Current Diagnoses Sleep apnea, unspecified (06/06/18) Atherosclerotic heart disease of [place] coronary artery without angina pectoris (06/06/18) Ischemic cardiomyopathy (06/06/18) Spinal stenosis, lumbar region without neurogenic claudication (06/06/18) Spinal stenosis, lumbar region with neurogenic claudication (06/06/18) Shortness of breath (06/06/18) Other mechanical complication of other internal orthopedic devices, implants and grafts, initial encounter (06/06/18) Personal history of other diseases of the circulatory system (06/06/18) Arthrodesis status (06/06/18) Surgery Performed Operation Date: 06/06/18 12:15 Actual Procedures p L2-S1 Lumbar HWR,Exploration of fusion,Repeat Laminectomy,Reinsertion of HWR, L4-5,L5-S1 Laminectomy, L4-5,L5-S1 PSF, L2-S1 Instrumentation - Harriet Hidalgo MD Physical Therapy Treatment Note M2 PT-IP Current Condition Start: 06/07/18 11:06 Freq: NEEDED Status: Discharge Protocol: Document 06/07/18 09:25 AB (Rec: 06/07/18 11:26 AB [id number]) Physical Therapy Current Condition Current Condition Evaluation Date 06/07/18 Treatment Diagnosis s/p L2-S1 hardware removal & fusion, L4-5 L5S1 revision lami and fusion Onset Date 06/06/18 Precautions Lumbar Precautions Log Roll No Twisting Limit Bending Lifting Restriction of 10 lbs Gait Belt above Incisional Area M3 PT-IP Subjective Start: 06/07/18 11:06 Freq: NEEDED Status: Discharge Protocol: Document 06/08/18 09:20 GGD (Rec: 06/08/18 11:45 GGD [id number]) Subjective Physical Therapy Visit Type Type Treatment Note Visit Start Time 08:55 Visit Stop Time 09:20 Total Visit Minutes 25 Number of ESTIMATING MANAGER Visits 1 Physical Therapy Visit Comments Patient Comments Pt states he doing better today. Therapy Pain Assessment Pain When Pain Assessed At Rest Pain Present Pain Present Pain Reported Location Lower Back Intensity 4 Scale Used Numeric (1 - 10) M4 PT-IP Mobility and Gait Start: 06/07/18 11:06 Freq: NEEDED Status: Discharge Protocol: Document 06/08/18 09:20 GGD (Rec: 06/08/18 11:45 GGD [id number]) PT-Transfer Assessment Sit to and From Stand Sit to and from Stand Standby Assistance Equipment Transfer Assistive Device Gait Belt Front Wheeled Walker Orthotic/Prosthetic Devices or Brace: No Gait Assessment Gait Gait Assistance Required: Standby Assistance Distance (Feet) 300 Able to Maintain Weight Bearing Status Yes During Gait Assistive Devices Assistive Device Gait Belt Front Wheeled Walker Orthotic/Prosthetic Devices or Brace: No Gait Deviations General Gait Pattern Decreased Stride Length Decreased Feet Clearance Factors Limiting Gait Function Factors Limiting Gait Function Decreased Activity Tolerance Decreased Strength Limited Range of Motion Pain Comments Gait Comments Ambulated greater than 300 feet with FWW. Ambulated from ICU to ER and back to ICU. M5 PT-IP Objective Assessments Start: 06/07/18 11:06 Freq: NEEDED Status: Discharge Protocol: Document 06/07/18 09:25 AB (Rec: 06/07/18 11:26 AB [id number]) Orientation Orientation/Cognition Level of Alertness Alert Orientation Name Age Birthday Month Date Year Day of Week Place Situation Safety Awareness Understands Safety Issues Gross Range of Motion Lower Extremity ROM Assessment Within Functional Limits Strength Lower Extremity Strength Assessment Within Functional Limits Muscle Tone Muscle Tone WNL Yes M6 PT-IP Treatment Start: 06/07/18 11:06 Freq: NEEDED Status: Discharge Protocol: Document 06/08/18 09:20 GGD (Rec: 06/08/18 11:45 GGD [id number]) Physical Therapy Treatment Education Education Provided Precautions M7 PT-IP Assessment and Plan Start: 06/07/18 11:06 Freq: NEEDED Status: Discharge Protocol: Document 06/08/18 09:20 GGD (Rec: 06/08/18 11:45 GGD [id number]) PT Summary Assessment and Plan Summary Assessment Summary Pt had improved pain control and able to progress mobility. He was stable with gait with FWW. He needed min cues for hand placement with transfers and posture during gait. Frequency of Treatment Frequency Of Treatment Twice a Day Treatment Plan Physical Therapy Treatment Plan Bed Mobility Training Transfer Training Gait Training Therapeutic Exercise Balance Retraining Post Op Education Discharge Planning Hot or Cold Pack Neuromuscular Re-ed Coordination Retraining Manual Therapy Recommendations To Nursing Amount of Assist Needed Standby Assistance Discharge Recommendations PT Discharge Recommendations Home with Assistance
[2018-06-08] MEDS: HYDROCODONE/ACET EXLIXIR 7.5-325/15 ML 30 ML PO (10:55)
--- NOTE | 2018-06-08 11:41 | CM.DPC ---
DCP Discharge Home: Per Ortho MD, pt is medically stable to d/c home today with no identified barriers to discharge. Per RN, pt is dressed and ready to discharge home this morning and no concerns at this time. Plan: Patient to discharge home today via spouse POV and no SW needs at this time. ONEAL Villarreal
== END 2018-06-08 11:12 | disposition home or self-care (01) | DRG 454 ==
LOC: AC 10:28 → ICU 06-07 09:11
PROVIDERS: Admitting Provider Orthopaedic Surgery Orthopaedic Surgery of the Spine; Family Provider Hospitalist; PCP Hospitalist; Visit Provider Orthopaedic Surgery Orthopaedic Surgery of the Spine
PROC: 0SG30AJ Fusion of Lumbosacral Joint with Interbody Fusion Device, Posterior Approach, Anterior Column, Open Approach (ICD-10-PCS; principal; 2018-06-06 12:15)
DX: T84.498A Other mechanical complication of other internal orthopedic devices, implants and grafts, initial encounter (principal); I44.2 Atrioventricular block, complete; I50.42 Chronic combined systolic (congestive) and diastolic (congestive) heart failure; M96.0 Pseudarthrosis after fusion or arthrodesis; M48.061 Spinal stenosis, lumbar region without neurogenic claudication; G47.33 Obstructive sleep apnea (adult) (pediatric); I25.5 Ischemic cardiomyopathy; I10 Essential (primary) hypertension; E78.5 Hyperlipidemia, unspecified; K21.9 Gastro-esophageal reflux disease without esophagitis; I25.10 Atherosclerotic heart disease of native coronary artery without angina pectoris; Z87.891 Personal history of nicotine dependence; Z95.810 Presence of automatic (implantable) cardiac defibrillator
CPT/HCPCS: 36415; 72100; 76001; 85014; 85018; 90471; 90656; 97116; 97161; 97530; C1776; C9290; J0330; J0690; J1100; J1170; J2250; J2405; J2704; J3010; J3410; Q2038

== ENCOUNTER → 2019-06-25 10:12 | Outpatient (CLI) | payer OTHER, SELFPAY ==
[2018-06-06 17:12] VITALS: BMI 33.7
[2019-06-25 12:51] LABS: Hematocrit 41.9 % (41-53); Mean Corpuscular HGB Conc 33.3 % (30-36); Mean Corpuscular Hemoglobin 29.6 PG (26-34); Mean Corpuscular Volume 88.7 fL (80-100); Platelet Count 248 X10^3/uL (150-400); Red Blood Cell Count 4.72 X10^6/uL (4.5-5.9); Red Cell Distribution Width 13.5 % (11.6-14.8); White Blood Cell Count 6.8 X10^3/uL (4.5-11.0)
[2019-06-25 13:01] LABS: Prothrombin Time 11.7 SECONDS (10.1-12.7)
[2019-06-25 13:04] LABS: PTT Partial Thromboplastin Tim 29 SECONDS (26.4-36.2)
[2019-06-25 13:12] LABS: Blood Urea Nitrogen 18 mg/dL (9-20); Calcium 9.8 mg/dL (8.4-10.2); Carbon Dioxide 27 mmol/L (22-32); Chloride 101 mmol/L (98-107); Estimated Glomerular Filt Rate > 60.0 mL/min (>60); Glucose 101 mg/dL (80-110); HEMOLYSIS < 15 (0-50); Potassium 4.2 mmol/L (3.4-5.1); Sodium 139 mmol/L (137-145)
== END ==
PROVIDERS: Family Provider Family Medicine; PCP Family Medicine; Visit Provider Orthopaedic Surgery Orthopaedic Surgery of the Spine
DX: Z01.818 Encounter for other preprocedural examination (principal); Z51.81 Encounter for therapeutic drug level monitoring
CPT/HCPCS: 36415; 80048; 85027; 85610; 85730

== ENCOUNTER 2019-07-02 06:37 | Inpatient (IN) | payer OTHER, SELFPAY ==
[2018-06-06 17:12] VITALS: BMI 33.7
[2019-06-26 11:43] VITALS: BMI 32.0
[2019-07-02] VITALS (24 sets, daily range): BP systolic 115–143; BP diastolic 69–97; PULSE 64–100; RESP 6–17; TEMP 35.8–37.4; O2SAT 92–98; BMI 32.0
--- NOTE | 2019-07-02 | DI.RAD.S_ITS ---
PROCEDURE: XR LUMBAR SPINE 2-3V INDICATIONS: L1-2 TLIF ADD TO THE 4 LEVEL TLIF FROM BEFORE TECHNIQUE: 5 views of the lumbar spine were acquired. COMPARISON: CT myelogram 05/12/2019. [facility], , XR LUMBAR SPINE 2-3V, 06/06/2018, 13:39. FINDINGS: L1-sacrum pedicle screw fixation with intervertebral body spacers. L1-L2 pedicle screws are new. The pedicle screws project in the expected locations. IMPRESSION: Satisfactory appearance of the pedicle screw fixation of the lumbar spine. Dictated by: Misael Barragan M.D. on 07/02/2019 at 14:14 Approved by: Misael Barragan M.D. on 07/02/2019 at 14:17
[2019-07-02] MEDS: LACTATED RINGERS 1,000 ML 42 ML IV ×3 (07:05→15:07)
--- NOTE | 2019-07-02 08:15 | SUR.PREOP ---
PT STATES HE FELL DAY BEFORE YESTERDAY AND HIS RIGHT SIDE AND WRIST HURT, RIGHT HAND IS SWOLLEN, NO BRUISING NOTED, PT STATES HE ALSO HURT HIS RIBS WHEN HE FELL.
--- NOTE | 2019-07-02 08:46 | PM.PREOP ---
Pre-operative Note Interval Note History & Physical reviewed/Exam performed by Physician: Yes Changes to H&P: No
[2019-07-02] MEDS: fentaNYL 100 MCG/2 ML INJ (08:48)
[2019-07-02] MEDS: CEFAZOLIN 2 GM/100 ML FROZ.PIGGY IV ×3 (08:53→20:02)
[2019-07-02] MEDS: HYDROCODONE/ACET 5/325 TABLET 2 TAB PO (08:53)
[2019-07-02] MEDS: BUPIVACAINE LIPOSOME 266 MG/20 ML VIAL INJ (10:04)
[2019-07-02] MEDS: BUPIVACAINE 0.25% W/ EPI 30 ML VIAL INJ (10:04)
[2019-07-02] MEDS: ACETAMINOPHEN IV 1,000 MG/100 ML VIAL 400 MG IV (11:30)
[2019-07-02] MEDS: fentaNYL 100 MCG/2 ML INJ IV ×2 (13:55→14:40)
[2019-07-02] MEDS: HYDROMORPHONE 2 MG INJ 0.25 MG IV ×9 (14:00→14:45)
--- NOTE | 2019-07-02 14:03 | P.OP_ITS ---
Operative Date/Time/Diagnoses Date of procedure: 07/02/19 Time of procedure: 09:03 Pre-op diagnosis: 1. L1-2, L2-3, L3-4, L4-5, L5-S1 spinal stenosis 2. Hx of L2-S1 PSF with instrumentation with hardware loosening 3. Lumbar spondylosis with radiculopathy Post-op diagnosis: same Procedure & Clinicians Procedure: 1. L1-2 Postero-lateral and posterior interbody fusion 2. L1-2 interbody cage placement. 3. L1-2 decompressive laminectomy with bilateral facetecomies 4. L1-S1 Posterior segmental instrumentation 5. L2-S1 posterior segmental hardware removal 6. L4-5, L5-S1 exploration of fusion with left hemilaminectomy 7. L5-S1 posterolateral fusion 8. [place] of bone marrow from iliac crest 9. Utilization of microsurgical technique and operating microscope Same procedure as scheduled: Yes Indications: Patient has been having chronic back pain and worsening lumbar radiculopathy. Patient had prior lumbar fusion with progressively worsening back pain with CT showing loosening of S1 screws bilaterally. Patient is also found to have residual foramen stenosis at L4-5 L5-S1 level correlating with his current radiculopathy. Patient failed multiple conservative management with worsening pain weakness and numbness in her lower extremity. Patient has been having difficulty performing activity of daily living. After discussing risks benefits of treatment options, patient elected proceed with surgery. Surgeon: Harriet Hidalgo Sewing Machine Attachment Tester: Anila Sexton Click Yes if Unassisted: No Anesthesia Type: General Operative Notes Closure Type: primary Specimen(s): none sent Prosthetic devices, grafts, tissues, transplants, or devices: Globus revolve screws, Rise cage Applied: catheter Estimated Blood Loss (mL): 300 Blood products transfused: none Procedure in detail: Patient was seen in the preoperative area. Risks and benefits of the surgery was discussed with the patient. Informed consent was obtained from the patient and placed in the chart. Surgical site was marked. Patient was taken to the operative room. General anesthesia was administered. Prophylactic antibiotic was given to the patient less than 30 min before the incision was made. Patient was placed into a prone position on the Tyler table. Patient's back was then prepped and draped in the sterile fashion. Time- out was performed at this time. Using patient's previous scar incision was made over the L2-S1 interval on the right side. Fascia was incised in line with skin incision. Patient's previously placed hardware over the L2-S1 level was identified by dissecting down to the level the hardware using a Bovie and a Rasheed. The locking caps which was removed using globus screwdriver. The locking ayse was then removed from the tulips of the pedicle screws using a Pita. The pedicle screws were then removed using the screwdriver. The screws were found to have good purchase except at S1 level bilaterally. The Globus and MARS retractors was then placed into the wound and docked onto the L1 lamina using C-arm guidance. Using microsurgical technique and operating microscope a laminectomy facetectomy was performed by removing the L1-2 lamina and the L1-2 facet. The disc space at L1-2 level was identified next. And a total diskectomy was performed at L1-2 level. The endplates were decorticated using a rasp and shaver. The total diskectomy and decortication was performed at L1-2 level in order to to accomplish a L1-2 fusion. The local bone from the laminectomy and facetectomy was saved for local bone grafting. After the total diskectomy and decortication was completed, Bio4 bone graft material was combined with local bone that was harvested earlier. At this time, a separate skin is incision was made over the iliac crest. A Jamshidi needle was inserted into the iliac crest through a separate skin incision. 5 cc of bone marrow aspiration was obtained through the separate skin incision using a Jamshidi needle from the iliac crest. The bone marrow aspiration was combined with local bone and the Bio4 bone grafting material. The bone grafting material was placed into the L1-2 interbody space along with a expandable cage. The cage was expanded to its maximum height using the torque limiting screwdriver. At this time a mirror image incision was made on the left side. The fascia was incised in line with the skin incision. Patient's previously placed hardware on the left side was then removed in the same fashion as it was on the right side. The hardware was also found to have good purchase except at S1 level. The fusion mass on the left side was exposed by performing a left-sided hemilaminec charli at L4-5 L5-S1 level. The hemilaminectomy was performed using the Kerrison rongeur to undercut the lamina as well removing additional epidural scar tissue for purpose of decompressing the epidural space. The fusion mass at L5-S1 was explored and was found have visible motion indicating pseudoarthrosis. Globus MARS retractor was inserted and docked onto the L1-2, L5-S1 posterolateral gutter. Using the power drill, posterior-lateral decortication was performed at L1-2, L5-S1 level until bleeding cortical bone was identified. The remaining bone grafting material was placed into the L1-2 L5-S1 posterior lateral gutter he order to accomplish posterolateral fusion at the L1-2 L5-S1 level. Using the double C-arm technique, pedicle screws were placed into the L1, L2, L3, L4, L5, S1 pedicles bilaterally. This was done by placing the Jamshidi needle into the pedicles, then placing the guidewires over the Jamshidi needle, and finally placing the cannulated screws over the guidewires bilaterally. After the pedicle screws were placed, 2 titanium rods was locked into the heads of the pedicle screws using locking caps and torque limiting screwdriver. After all the hardware was placed, and confirmed with AP and lateral C-arm imaging, the wound was then irrigated with sterile normal saline and packed with Ray-Reid gauze for 3 min to accomplish hemostasis. After the gauze was removed the deep fascia was closed with #1 Vicryl suture. The subcutaneous layer was closed with 2-0 Vicryl. The skin was closed with skin michelle. Patient tolerated the procedure well. There were no complications. Complications: none Post-operative Condition: stable Disposition: PACU Plan for aftercare: Admit to inpatient hospital
--- NOTE | 2019-07-02 14:03 | PM.PREOP ---
Pre-operative Note Interval Note History & Physical reviewed/Exam performed by Physician: Yes Changes to H&P: No
--- NOTE | 2019-07-02 14:07 | SUR.PHASEI ---
pt arrived to PACU with cardiology rep , rn and anesthesia. 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 A-line dci per md order
[2019-07-02] MEDS: hydrOXYzine 50 MG/ML INJ 25 MG IM (14:24)
--- NOTE | 2019-07-02 15:54 | SUR.PHASEI ---
pt complaining of 10/10 pain on arrival and for first hour of PACU time. medicated with narcotices q 5 minutes with no change in behavior of pain complaints. shortly after last .25 mg dialudi dose pt started having periods of apnea with rate as low as 6 BPM. placed on CPAP with supplemental O2 at 6 liters and then decreased to 4 liters and provided one to one care encouraging coughing and deep breathing. lung sounds are diminished but otherwise unremarkable. skin is pink warm and dry and pt is arousable ,follows commands appropriately as well as answers questions with short answers. will continue to monitor
[2019-07-02] MEDS: SODIUM CHLORIDE 0.9% 1,000 ML 100 ML IV (17:25)
--- NOTE | 2019-07-02 17:44 | PM.CN ---
History of Present Illness Consult details Date Patient Seen: 07/02/19 Chief complaint: Translaminar Interbody Fusion/Laminotomy Reason for consult: Postoperative atrial flutter Requesting provider: Harriet Hidalgo Narrative: The patient is a 74-year-old male who underwent surgery today for L1 to TLIF L2-S1 HW are L4-L5-L5-S1 right monisha laminectomy with instrumentation. Patient had an uncomplicated operative course. His pacemaker was reprogrammed for the procedure. His AICD was reprogrammed as well. Following this patient developed atrial flutter. He converted spontaneously to sinus tachycardia. This felt to have significant pain which was treated and his heart rate improved. The patient has known heart disease. He has ischemic cardiomyopathy with a known ejection fraction of 30%. He had complete AV block and has subsequently had a pacer and AICD placement. The patient is somewhat sleepy and lethargic postoperatively. He has just arrived to the floor from the recovery room. The patient has a CPAP on at times. He is noted to be apneic but responds well to the CPAP machine. The patient has a long complicated cardiac history, this includes a history of myocardial infarction, ischemic cardiomyopathy, chronic systolic heart failure with an ejection fraction of 30%, history of coronary disease status post myocardial infarction at age 41, and known cardiac arrhythmia is. The patient is unable to provide any additional history as he is somewhat lethargic. His is at the bedside it has been helpful in providing further history. [facility] Medical History (Updated 06/06/18 @ 17:27 by Francisca Overton MD) Anxiety (Acute) Arrhythmia (Acute) AV block, complete (Acute) Back pain (Acute) Cardiomyopathy (Acute) Chest heaviness (Acute) Chronic combined systolic and diastolic congestive heart failure (Acute) Coronary atherosclerosis of artery bypass graft (Acute) Dizziness (Acute) DVT (deep venous thrombosis) (Acute ~03/11/07) Dyspnea (Acute) Erectile dysfunction (Acute) GERD (gastroesophageal reflux disease) (Acute) H/O Doppler ultrasound (Acute) H/O echocardiogram (Acute) Heart failure (Acute) History of angina (Acute) History of changing skin mole (Acute ~05/23/18) History of esophageal spasm (Acute) History of nuclear stress test (Acute) Hyperlipidemia (Acute) LBBB (left bundle branch block) (Acute) Loosening of hardware in spine (Acute) Murmur (Acute) Myocardial infarction (Acute ~1985) Other specified forms of chronic ischemic heart disease (Acute) Pacemaker (Acute) Precordial pain (Acute) Shortness of breath (Acute) Spinal stenosis of lumbar region at multiple levels (Acute) Ventricular tachycardia (Acute) Surgical History History of lumbar spinal fusion (Acute) History of repair of rotator cuff (Acute) History of vasectomy (Acute) Hx of bilateral cataract extraction (Acute) Hx of total knee arthroplasty (Acute) S/P lumbar fusion (Acute 06/06/18) Social History household members: spouse Smoking Status: Former smoker alcohol intake: current Social History household members: spouse Smoking Status: Former smoker alcohol intake: current Meds Home Medications and Allergies Home Medications Medication Instructions Recorded Confirmed Type alprazolam 0.5 mg PO Q8H PRN #0 tab 05/15/13 07/02/19 History carvedilol [Coreg] 25 mg PO BID #0 tab 05/15/13 07/02/19 History clopidogrel [Plavix] 75 mg PO QDAY #0 tab 05/15/13 07/02/19 History fenofibrate nanocrystallized 145 mg PO QPM #0 tab 05/15/13 07/02/19 History [Tricor] furosemide 40 mg PO DAILY PRN #0 tab 05/15/13 07/02/19 History losartan [Cozaar] 25 mg PO HS #0 tab 05/15/13 07/02/19 History multivitamin 1 tab PO DAILY #0 tab 05/15/13 06/26/19 History rosuvastatin [Crestor] 10 mg PO HS #0 tab 05/15/13 07/02/19 History spironolactone [Aldactone] 25 mg PO QDAY #0 tab 05/15/13 07/02/19 History vardenafil [Levitra] 10 mg PO PRN PRN #0 tab 05/15/13 06/26/19 History aspirin 81 mg PO DAILY 05/29/18 07/02/19 History calcium carbonate [Tums] 1 tab PO PRN PRN #0 05/29/18 06/26/19 History nitroglycerin 1 spray SUBLINGUAL Q5M PRN 05/29/18 06/26/19 History hydrocodone-acetaminophen [[place]] 2 tab PO Q4-6H PRN #60 tab 06/07/18 07/02/19 Rx potassium chloride 10 meq PO DAILY PRN 06/26/19 07/02/19 History Allergies Allergy/AdvReac Type Severity Reaction Status Date / Time hydromorphone [HYDROMORPHONE] Allergy Intermediate He stops Verified 07/02/19 07:47 breathing when given too much per morphine [MORPHINE] Allergy Mild ITCHING Verified 07/02/19 07:47 WITH TOO MUCH ondansetron Allergy Mild Rash Verified 07/02/19 07:47 isosorbide AdvReac Intermediate Headache Verified 07/02/19 07:47 oxycodone [OXYCODONE] AdvReac Intermediate AGITATED, Verified 07/02/19 07:47 GI UPSET adhesive AdvReac Unknown Skin peels Verified 07/02/19 07:47 off, leaves scars Review of Systems Review of Systems ROS Unobtainable: unobtainable due to mental status Exam Vital Signs (past 8 hours): - 07/02/19 13:50 07/02/19 13:55 07/02/19 14:00 Temperature 99.4 F 99 F Pulse Rate 88 91 H 90 Respiratory Rate 13 12 12 Blood Pressure 135/80 133/87 143/87 H Pulse Oximetry 93 92 95 07/02/19 14:15 07/02/19 14:30 07/02/19 14:45 Temperature 99 F 98.6 F Pulse Rate 86 78 85 Respiratory Rate 16 12 10 L Blood Pressure 129/87 115/72 125/69 Pulse Oximetry 96 96 97 07/02/19 15:00 07/02/19 15:15 07/02/19 15:25 Temperature 98.6 F 98.6 F Pulse Rate 92 H 98 H 100 H Respiratory Rate 10 L 10 L 8 L Blood Pressure 127/88 135/85 128/87 Pulse Oximetry 98 97 98 07/02/19 15:35 07/02/19 15:50 07/02/19 16:00 Temperature 98.6 F Pulse Rate 94 H 95 H 90 Respiratory Rate 10 L 12 9 L Blood Pressure 124/88 136/87 129/88 Pulse Oximetry 97 98 98 07/02/19 16:15 07/02/19 16:25 07/02/19 16:40 Temperature Pulse Rate 90 100 H 94 H Respiratory Rate 8 L 6 L 12 Blood Pressure 133/88 115/94 H 126/84 Pulse Oximetry 96 92 97 07/02/19 16:55 07/02/19 17:27 Temperature 96.4 F L 97.2 F L Pulse Rate 100 H 99 H Respiratory Rate 16 16 Blood Pressure 137/97 H 138/85 Pulse Oximetry 94 96 Oxygen Delivery Method Nasal Cannula,CPAP Oxygen Flow Rate 4 Narrative Exam Narrative: Lethargic, sedated male who is somewhat arousable on CPAP HEENT: Normocephalic atraumatic, neck is supple, CPAP mask in place Lungs: Decreased breath sounds but clear to auscultation Cardiac exam: Regular rate rhythm normal S1-S2 with a 2/6 systolic ejection murmur Chest: Right chest with pacemaker in place, left upper chest with pacemaker wires palpable, left leg lower abdominal area with pacer palpated. Abdomen: Soft nontender and nondistended, pacemaker palpated in the left lower quadrant Extremities: Foot pumps in place, no edema, no cyanosis, no rash Neuro exam: Patient is lethargic postoperatively. He is still somewhat sleepy following anesthesia. Patient is on CPAP and unable to participate in exam at this time Assessment & Plan Assessment & Plan narrative: Impression 1. 74-year-old male with a history of spinal stenosis, status post T lift with instrumentation. Patient had successful surgery with no significant complications. Postoperative course to be managed by Dr. Hidalgo 2. History of ischemic cardiomyopathy, patient with a history of myocardial infarction at age 41, known ejection fraction of 30%, chronic stable acute systolic heart failure. Patient to continue his usual home regimen to include spironolactone, Lasix, Coreg, losartan. Will eliminate any additional IV fluid given his known history of congestive heart failure. Will follow electrolytes and manage heart failure closely 3. Obstructive sleep apnea, chronic, present on admission, continue CPAP 4. Hypertension, continue his losartan 5. Hyperlipidemia, continue rosuvastatin 6. Anxiety, benzodiazepines as needed 7. GERD, ppi is indicated 8. Transient atrial flutter postoperatively, now resolved, patient with DDDR pacer placed a with AICD. This has been interrogated and is functional. Thank you very much for this consultation will continue to follow with you.
[2019-07-02 18:43] LABS: Prothrombin Time 11.5 SECONDS (10.1-12.7)
--- NOTE | 2019-07-02 19:00 | PC.NURSE ---
Addendum entered by Peggy Mckeon R.N. 07/02/19 21:13: Pt now alert and awake. 99% on RA. Using CPAP @ night. Urinary catheter intact, draining cloudy yellow urine. Pt reports taking norco at home for pain and zanex at night to help with sleep. Pain controlled with norco and oxycodone. [facility] Original Note: Pt back from surgery without issues. alert and awake but drowsy upon arrival. No complaints of pain. CPAP on with 2L O2, O2 stats running at 97%. VSS. Pt back CDI dressing clean dry and intact.
[2019-07-02] MEDS: ROSUVASTATIN 10 MG TABLET PO (19:59)
[2019-07-02] MEDS: SENNOSIDES 8.6 MG TABLET 17.2 MG PO (20:00)
[2019-07-02] MEDS: CARVEDILOL 25 MG TABLET PO (20:00)
[2019-07-02] MEDS: DOCUSATE 100 MG CAPSULE PO (20:00)
[2019-07-02] MEDS: FENOFIBRATE 145 MG TABLET PO (20:01)
[2019-07-02] MEDS: OXYCODONE IR 5 MG TABLET 10 MG PO ×2 (20:01→22:38)
[2019-07-02] MEDS: LOSARTAN 25 MG TABLET PO (20:01)
[2019-07-02] MEDS: ALPRAZolam 0.5 MG TABLET PO (20:06)
[2019-07-03] MEDS: ACETAMINOPHEN 325 MG TABLET 650 MG PO (01:09)
[2019-07-03] MEDS: OXYCODONE IR 5 MG TABLET 10 MG PO (01:39)
[2019-07-03 03:00] VITALS: BP 108/65; PULSE 78; RESP 16; TEMP 36.8; O2SAT 96
[2019-07-03] MEDS: MORPHINE 2 MG/ML INJ IV (03:09)
[2019-07-03] MEDS: ALPRAZolam 0.5 MG TABLET PO ×2 (03:54→20:28)
[2019-07-03] MEDS: CEFAZOLIN 2 GM/100 ML FROZ.PIGGY IV (04:35)
[2019-07-03] MEDS: HYDROCODONE/ACET 5/325 TABLET 2 TAB PO ×5 (04:45→20:28)
[2019-07-03 06:15] LABS: Hematocrit 32.3 % (41-53); Hemoglobin 10.8 g/dL (13.5-17.5)
[2019-07-03 07:00] VITALS: BP 98/64; PULSE 70; RESP 16; TEMP 36.6; O2SAT 97
[2019-07-03] MEDS: CARVEDILOL 25 MG TABLET PO ×2 (09:16→17:03)
--- NOTE | 2019-07-03 09:16 | PM.PNPO.1 ---
Subjective Subjective Date Patient Seen: 07/03/19 Time Patient Seen: 09:16 Interval history: POD #1 s/p L1-2 TLIF, L2-S1 HWR, and L1-S1 PSF. Patient resting comfortably in bed. He has Villegas catheter in place. No complaints this morning. He did have a flutter after surgery and hospitalist was consulted. Exam Vital Signs (past 8 hours): - 07/03/19 03:00 07/03/19 07:00 Temperature 98.3 F 97.8 F Pulse Rate 78 70 Respiratory Rate 16 16 Blood Pressure 108/65 98/64 Pulse Oximetry 96 97 Oxygen Delivery Method Nasal Cannula,CPAP Oxygen Flow Rate 0 Narrative Exam Narrative: Patient lying in bed in no acute distress. Is alert and oriented x3. Calves are soft, compressible, and nontender bilaterally. Pulses are symmetrical. He is able to actively dorsiflex and plantar flex. Objective Labs Result Diagrams: 07/03/19 05:55 Labs: Laboratory Results - last 24 hr 07/02/19 07/03/19 18:28 05:55 Hgb 10.8 L Hct 32.3 L PT 11.5 INR 1.0 Assessment & Plan Post-op Postoperative Procedures: Procedures Operation Date: 07/02/19 08:45 Actual Procedures Side Surgeon p L1-2 TLIF L2-S1 HWR, L4-5, L5-S1 right hemilaminectomy,L1-S1 PSF w/ instrumentation Harriet Hidalgo MD Patient will mobilize with physical therapy today. Once mobile can remove Villegas catheter. Will restart aspirin today. Hold Plavix until postop day 3. Continue SCDs as well. Continue current pain control. Once patient is mobilizing safely, voiding, and pain adequately controlled he will plan to discharge home likely in next 1-2 days.
[2019-07-03] MEDS: MULTIVITAMIN 1 TABLET 1 TAB PO (09:18)
[2019-07-03] MEDS: DOCUSATE 100 MG CAPSULE PO ×2 (09:18→20:28)
[2019-07-03] MEDS: SPIRONOLACTONE 25 MG TABLET PO (09:18)
--- NOTE | 2019-07-03 10:32 | CM.DANOTE ---
DCP: Case received, EMR reviewed and met with patient. Introduced self and role. Was able to meet with patient to obtain baseline health and activity history information. DCP assessment/template completed with information currently available. Patient is a 74 year old male who admitted yesterday morning to the care of the orthopedic team. PCP: Dr. John. Payer: confirmed: [facility]. Patient came to the hospital for a surgical procedure. He had L1-2 Postero-lateral and posterior interbody fusion. Patient has history of lumbar spondylosis, resulting in chronic low back pain. Met with patient in his room. Alert and oriented. He was sitting up in his bed. He has been independent at home, uses walking poles/cane. He mentioned that he had just gotten a FWW. He does have some stairs in his home. He will be working with physical therapy this morning. Patient resides in [place] with his spouse, Ana. P: DCP to continue to follow closely. Will see how he does with physical therapy. He should be able to go home when medically stable, and if cleared by P.T. Flor Norris RN/Business Project Manager
[2019-07-03] MEDS: POLYVINYL ALCOHOL DROPS 1 DROPS EYE-BOTH (10:44)
--- NOTE | 2019-07-03 11:09 | PC.NURSE ---
Addendum entered by Sabrina Marie R.N. 07/03/19 15:41: - after lunch, thorpe emptied 350ml, balloon deflated and dc'd w/o difficulty, pt has urinal at bedside, enc fluids. Original Note: AM NOTE - awakens easily, using cpap during night, ra 97%, states back discomfort 4-6 on scale 0/10, discussed medications, pt states oxycodone and vistaril are not effective for him, takes norco at home, given 10mg po with breakfast, barrier dsg cdi, footie scd on, thorpe w/clear yellow urine, PA in and pt will start asa tonight, will hold plavix at this time, thorpe may dc today, after up chair pt, ambul, pt wanted back bed for nap, prefers to wait to dc thorpe later today, some burning discomfort eyes, no redness noted, artif tears admin.
--- NOTE | 2019-07-03 11:15 | PT.IIE ---
Current Diagnoses Spondylosis without myelopathy or radiculopathy, lumbar region (07/02/19) Spinal stenosis, lumbar region with neurogenic claudication (07/02/19) Other mechanical complication of other internal orthopedic devices, implants and grafts, initial encounter (07/02/19) Surgery Performed Operation Date: 07/02/19 08:45 Actual Procedures p L1-2 TLIF L2-S1 HWR, L4-5, L5-S1 right hemilaminectomy,L1-S1 PSF w/ instrumentation - Harriet Hidalgo MD Surgical History (Last Reviewed 07/02/19 @ 17:48 by Francisca Overton MD) History of lumbar spinal fusion (Acute) History of repair of rotator cuff (Acute) History of vasectomy (Acute) Hx of bilateral cataract extraction (Acute) Hx of total knee arthroplasty (Acute) S/P lumbar fusion (Acute 06/06/18) Medical History (Last Reviewed 06/06/18 @ 17:17 by Francisca Overton MD) Anxiety (Acute) Arrhythmia (Acute) AV block, complete (Acute) Back pain (Acute) Cardiomyopathy (Acute) Chest heaviness (Acute) Chronic combined systolic and diastolic congestive heart failure (Acute) Coronary atherosclerosis of artery bypass graft (Acute) Dizziness (Acute) DVT (deep venous thrombosis) (Acute ~03/11/07) Dyspnea (Acute) Erectile dysfunction (Acute) GERD (gastroesophageal reflux disease) (Acute) H/O Doppler ultrasound (Acute) H/O echocardiogram (Acute) Heart failure (Acute) History of angina (Acute) History of changing skin mole (Acute ~05/23/18) History of esophageal spasm (Acute) History of nuclear stress test (Acute) Hyperlipidemia (Acute) LBBB (left bundle branch block) (Acute) Loosening of hardware in spine (Acute) Murmur (Acute) Myocardial infarction (Acute ~1985) Other specified forms of chronic ischemic heart disease (Acute) Pacemaker (Acute) Precordial pain (Acute) Shortness of breath (Acute) Spinal stenosis of lumbar region at multiple levels (Acute) Ventricular tachycardia (Acute) Physical Therapy Inpatient Evaluation/Re-Eval M1 PT/OT-IP Prior Functional Status Start: 07/03/19 08:30 Freq: NEEDED Status: Active Protocol: Document 07/03/19 10:39 AW (Rec: 07/03/19 11:14 AW [id number]) Medical Review Prior Functional Status Medical History Reviewed Yes Diet/Fluid Consistency Regular Communication Able to make needs known, no known deficits Mobility and Gait Per pt, he has been using bilateral trekking poles for nearly all mobility. He was able to traverse uneven terrain and hills, but could only tolerate standing or walking for about 10 minutes when his pain would become too intense. Activities of Daily Living and IADL's Pt received assistance from his with lower body dressing and drying his lower body after showers. He was otherwise independent. Prior Functional Level (Other details) Pt reports one injurious fall 2 days ago. He believes he sprained his right wrist and hurt his right ribs. He can not recall any other falls in the past year. Social History Household Members spouse Living Arrangements House Number of Floors (Floors) One Floor Number of Stairs To Enter/Railing? 2 JORGE without railing, but with nearby metz for support. Pt also notes he has an activity room at home which is sunken and accessible by 2 steps with no railing. Again in that situation there are metz for support. Home Environment High Toilet,Walk in Shower, Built-In Shower Seat Home Equipment Front Wheel Walker,Straight Cane,Raised Toilet Seat Without Armrests,Hand Held Shower,Grab Bars In Shower Employment Status Retired Additional Social History Comment Pt's spouse is retired. Pt reports she has no limitations in her ability to assist. M2 PT-IP Current Condition Start: 07/03/19 08:30 Freq: NEEDED Status: Active Protocol: Document 07/03/19 10:39 AW (Rec: 07/03/19 11:14 AW [id number]) Physical Therapy Current Condition Current Condition Evaluation Date 07/03/19 Treatment Diagnosis s/p TLIF, impaired transfers and gait Onset Date 07/02/19 Precautions Lumbar Precautions Log Roll,No Twisting,Limit Bending,Lifting Restriction of 10 lbs,Gait Belt above Incisional Area Other Precautions recent fall (2 days ago) Weight Bearing Status Weight Bearing Status Full Weight Bearing M3 PT-IP Subjective Start: 07/03/19 08:30 Freq: NEEDED Status: Active Protocol: Document 07/03/19 10:39 AW (Rec: 07/03/19 11:14 AW [id number]) Subjective Physical Therapy Visit Type Type Initial Evaluation Visit Start Time 09:25 Visit Stop Time 09:57 Total Visit Minutes 32 Number of PHARMACY STUDENT Visits 0 Physical Therapy Visit Comments Patient Comments Pt is anxious about mobility but willing to try Patient Goals Pt hopes to discharge to home with spouse assist Therapy Pain Assessment Pain When Pain Assessed During Mobility Pain Present Pain Present Pain Reported Location Lower Back Intensity 6 Scale Used 6/10 at rest; 7/10 with mobility Pain Management Techniques Re-positioning,Timing of Activity with Medications M4 PT-IP Mobility and Gait Start: 07/03/19 08:30 Freq: NEEDED Status: Active Protocol: Document 07/03/19 10:39 AW (Rec: 07/03/19 11:14 AW [id number]) PT-Bed Mobility Assessment Rolling Type of Rolling Log Rolling Level of Assist Contact Guard Assistance Supine to Sit Supine to Sit Minimal Assistance Scooting Scooting to Edge of Bed Standby Assistance PT-Transfer Assessment Sit to and From Stand Sit to and from Stand Contact Guard Assistance Equipment Transfer Assistive Device Gait Belt Orthotic/Prosthetic Devices or Brace: No Transfers Transfer Destination Chair Transfer Technique pt ambulated with FWW Transfer Ability Level of Assist Contact Guard Assistance,1 Person Assistance,Use of Upper Extremities Comments Mobility Comments Pt performed log roll CGA; supine to sit transfer required min assist to attain upright position and verbal cues for sequencing. Sit to stand and transfers required CGA using FWW. Gait Assessment Gait Gait Assistance Required: Contact Guard Assist Distance (Feet) 200 Able to Maintain Weight Bearing Status Yes During Gait Assistive Devices Assistive Device Gait Belt,Front Wheeled Walker Orthotic/Prosthetic Devices or Brace: No Gait Deviations General Gait Pattern Antalgic,Decreased Stride Length,Decreased Feet Clearance,Flexed Trunk Factors Limiting Gait Function Factors Limiting Gait Function Decreased Strength,Pain Comments Gait Comments Pt has had right foot drop for the past two months. He continues to make initial contact with forefoot on right . He can briefly correct this in response to cues, but reverts to forefoot landing when not attending to foot placement. He demonstrated decreaesed gait speed, step length, and foot clearance (R worse than L), but was able to increase gait speed and step length in response to education. Pt uses bilateral trekking poles for mobility at home. Will plan to trial poles at afternoon session if is able to bring them. Stair Climbing Assessment Evaluation Level of Assist On Stairs Contact Guard Assistance Devices Stair Climbing Assistive Devices Left Railing,Right Railing Technique/Endurance Stair Climbing Direction Ascend and Descend Stair Climbing Technique Step Over Step,Step to Step Number of Steps Climbed 3 Query Text: Stair Climbing Set # Repetitions (reps) 2 Comments Stair Climbing Comments Pt climbed 3 stairs with bilateral rails CGA using step over step pattern. 2nd trial pt used left rail only and used step-to pattern. He required CGA for all attempts. PT-Balance Assessment Sitting Balance and Reactions Static Sitting Balance Ability Normal Dynamic Sitting Balance Ability Normal Standing Balance and Reactions Static Standing Balance Ability Good Dynamic Standing Balance Ability Good Device Used FWW M5 PT-IP Objective Assessments Start: 07/03/19 08:30 Freq: NEEDED Status: Active Protocol: Document 07/03/19 10:39 AW (Rec: 07/03/19 11:14 AW [id number]) Orientation Orientation/Cognition Level of Alertness Alert Orientation Name,Date,Place,Situation Language Function Ability No Deficits Noted Safety Awareness Understands Safety Issues Memory Description No Deficits Noted Gross Range of Motion Upper Extremity ROM Assessment Right Impaired Impairments R wrist limited by pain Lower Extremity ROM Assessment Within Functional Limits Strength Upper Extremity Strength Assessment Within Functional Limits Wrist MMT R wrist not undertaken due to pain (recent fall) Lower Extremity Strength Assessment Within Functional Limits Comments Strength Comments grossly 4+/5 all major muscle groups Coordination Assessment Gross Coordination Gross Coordination WNL Sensation Assessment Sensation Gross Sensation WNL M6 PT-IP Treatment Start: 07/03/19 08:30 Freq: NEEDED Status: Active Protocol: Document 07/03/19 10:39 AW (Rec: 07/03/19 11:14 AW [id number]) Physical Therapy Treatment Education Education Provided Precautions,Weight Bearing Status,Post-Op Packet,Safety M7 PT-IP Assessment and Plan Start: 07/03/19 08:30 Freq: NEEDED Status: Active Protocol: Document 07/03/19 10:39 AW (Rec: 07/03/19 11:14 AW [id number]) PT Summary Assessment and Plan Potential Rehabilitation Potential Good Status of Condition at Evaluation Evolving Summary Impairments Pain,Strength,Bed Mobility, Transfers,Gait,Activity Tolerance Assessment Summary Lele is a 74 yo man seen for PT evaluation on POD1 following L1-S1 TLIF. He has history of multiple spine surgeries, [place], CHF, CAD, quadruple bypass, rotator cuff repair, and left TKA. PLOF: Pt was ambulatory up to 10 minutes at a time using trekking poles bilaterally. He notes he fell two days ago, hurting his right wrist and ribs. He denies any other falls in the past year. He has worsening foot drop over the past few months. He required assistance from his for lower body dressing and drying lower body after showers, but was otherwise independent with ADL's. CLOF: Pt required CGA to min assist for all mobility using FWW. He climbed stairs with CGA using railings. No signs of dyspnea, lightheadedness, or unusual fatigue with mobility. Pain increased from 6/10 at rest to 7/10 with mobility. Pt will likely be safe to discharge to home with spouse assist once medically cleared. Goals Bed Mobility Goal Independent Transfer Goal Standby Assistance Gait Goal Independent Gait Distance 200 Other Goals up/down 2 steps with no rails and CASING MIXER for safe entry to the home. Days to Meet Goals 2 Frequency of Treatment Frequency Of Treatment Twice a Day Treatment Plan Physical Therapy Treatment Plan Bed Mobility Training,Transfer Training,Gait Training, Therapeutic Exercise,Balance Retraining,Post Op Education, Discharge Planning,Hot or Cold Pack,Neuromuscular Re-ed, Coordination Retraining,Manual Therapy Other Recommendations and Next Treatment Trial trekking poles to assess Focus for appropriateness. Pt does have FWW at home, so either would be viable. Continue stair training. Reinforce log roll Recommendations To Nursing Amount of Assist Needed Standby Assistance Discharge Recommendations PT Discharge Recommendations Home with Assistance, Outpatient PT
[2019-07-03 12:00] VITALS: BP 96/54; PULSE 65; RESP 16; TEMP 36.3; O2SAT 96
--- NOTE | 2019-07-03 15:05 | OT.IP.EVAL ---
Current Diagnoses Spondylosis without myelopathy or radiculopathy, lumbar region (07/02/19) Spinal stenosis, lumbar region with neurogenic claudication (07/02/19) Other mechanical complication of other internal orthopedic devices, implants and grafts, initial encounter (07/02/19) Surgery Performed Operation Date: 07/02/19 08:45 Actual Procedures p L1-2 TLIF L2-S1 HWR, L4-5, L5-S1 right hemilaminectomy,L1-S1 PSF w/ instrumentation - Harriet Hidalgo MD Past Medical History (Last Reviewed 06/06/18 @ 17:17 by Francisca Overton MD) Anxiety (Acute) Arrhythmia (Acute) AV block, complete (Acute) Back pain (Acute) Cardiomyopathy (Acute) Chest heaviness (Acute) Chronic combined systolic and diastolic congestive heart failure (Acute) Coronary atherosclerosis of artery bypass graft (Acute) Dizziness (Acute) DVT (deep venous thrombosis) (Acute ~03/11/07) Dyspnea (Acute) Erectile dysfunction (Acute) GERD (gastroesophageal reflux disease) (Acute) H/O Doppler ultrasound (Acute) H/O echocardiogram (Acute) Heart failure (Acute) History of angina (Acute) History of changing skin mole (Acute ~05/23/18) History of esophageal spasm (Acute) History of nuclear stress test (Acute) Hyperlipidemia (Acute) LBBB (left bundle branch block) (Acute) Loosening of hardware in spine (Acute) Murmur (Acute) Myocardial infarction (Acute ~1985) Other specified forms of chronic ischemic heart disease (Acute) Pacemaker (Acute) Precordial pain (Acute) Shortness of breath (Acute) Spinal stenosis of lumbar region at multiple levels (Acute) Ventricular tachycardia (Acute) Surgical History (Last Reviewed 07/02/19 @ 17:48 by Francisca Overton MD) History of lumbar spinal fusion (Acute) History of repair of rotator cuff (Acute) History of vasectomy (Acute) Hx of bilateral cataract extraction (Acute) Hx of total knee arthroplasty (Acute) S/P lumbar fusion (Acute 06/06/18) Occupational Therapy Inpatient Evaluation/Re-Eval M1 PT/OT-IP Prior Functional Status Start: 07/03/19 08:30 Freq: NEEDED Status: Active Protocol: Document 07/03/19 10:39 AW (Rec: 07/03/19 11:14 AW [id number]) Medical Review Prior Functional Status Medical History Reviewed Yes Diet/Fluid Consistency Regular Communication Able to make needs known, no known deficits Mobility and Gait Per pt, he has been using bilateral trekking poles for nearly all mobility. He was able to traverse uneven terrain and hills, but could only tolerate standing or walking for about 10 minutes when his pain would become too intense. Activities of Daily Living and IADL's Pt received assistance from his with lower body dressing and drying his lower body after showers. He was otherwise independent. Prior Functional Level (Other details) Pt reports one injurious fall 2 days ago. He believes he sprained his right wrist and hurt his right ribs. He can not recall any other falls in the past year. Social History Household Members spouse Living Arrangements House Number of Floors (Floors) One Floor Number of Stairs To Enter/Railing? 2 JORGE without railing, but with nearby metz for support. Pt also notes he has an activity room at home which is sunken and accessible by 2 steps with no railing. Again in that situation there are metz for support. Home Environment High Toilet,Walk in Shower, Built-In Shower Seat Home Equipment Front Wheel Walker,Straight Cane,Raised Toilet Seat Without Armrests,Hand Held Shower,Grab Bars In Shower Employment Status Retired Additional Social History Comment Pt's spouse is retired. Pt reports she has no limitations in her ability to assist. M1 PT/OT-IP Prior Functional Status Start: 07/03/19 14:56 Freq: NEEDED Status: Active Protocol: Document 07/03/19 14:56 CGR (Rec: 07/03/19 15:05 CGR [id number]) Medical Review Prior Functional Status Medical History Reviewed Yes Diet/Fluid Consistency Regular Communication Able to make needs known, no known deficits Mobility and Gait Per pt, he has been using bilateral trekking poles for nearly all mobility. He was able to traverse uneven terrain and hills, but could only tolerate standing or walking for about 10 minutes when his pain would become too intense. Activities of Daily Living and IADL's Pt received assistance from his with lower body dressing and drying his lower body after showers. He was otherwise independent. has been assisting for about 1 month as his back pain has increased. Prior Functional Level (Other details) Pt reports one injurious fall 2 days ago. He believes he sprained his right wrist and hurt his right ribs. He can not recall any other falls in the past year. Social History Household Members spouse Living Arrangements House Number of Floors (Floors) One Floor Number of Stairs To Enter/Railing? 2 JORGE without railing, but with nearby metz for support. Pt also notes he has an activity room at home which is sunken and accessible by 2 steps with no railing. Again in that situation there are metz for support. Home Environment High Toilet,Walk in Shower, Built-In Shower Seat Home Equipment Front Wheel Walker,Straight Cane,Raised Toilet Seat Without Armrests,Hand Held Shower,Grab Bars In Shower Employment Status Retired Additional Social History Comment Pt's spouse is retired. Pt reports she has no limitations in her ability to assist. M2 OT-IP Current Condition Start: 07/03/19 14:56 Freq: Status: Active Protocol: Document 07/03/19 14:56 CGR (Rec: 07/03/19 15:05 R [id number]) Occupational Therapy Current Condition Current Condition Evaluation Date 07/03/19 Treatment Diagnosis L1-2 TLIF, L2-S1 HWR, L1-S1 RSF Diagnosis Onset Date 07/02/19 Post Operative Precautions Lumbar Precautions Log Roll,No Twisting,Limit Bending,Lifting Restriction of 10 lbs,Gait Belt above Incisional Area M3 OT- IP Subjective and Pain Start: 07/03/19 14:56 Freq: Status: Active Protocol: Document 07/03/19 14:56 CGR (Rec: 07/03/19 15:05 R [id number]) OT- Subjective Occupational Therapy Visit Type Type Initial Evaluation Visit Start Time 14:25 Visit Stop Time 14:55 Total Visit Minutes 30 OT Pain Assessment Pain When Pain Assessed At Rest Pain Present Pain Present Pain Reported Location Lower Back Intensity 4 Scale Used Numeric (1 - 10) Management Techniques Distraction,Re-positioning, Timing of Activity with Medications M4 OT- IP ADL's Start: 07/03/19 14:56 Freq: Status: Active Protocol: Document 07/03/19 14:56 CGR (Rec: 07/03/19 15:05 [facility] [id number]) OT [id number] Comments OT Self-Feeding Comments Not meal time but IND with drinking water OT ADL-Grooming General Evaluation Grooming Ability Standby Assistance Areas Needing Assistance Face Washing Comments OT Grooming Comments standing at sink OT ADL-Oral Care General Eval Oral Care Ability Standby Assistance Comments Oral Care Comments standing at sink OT ADL-Dressing General Eval Lower Body Dressing Ability Standby Assistance Areas Needing Assistance Retrieving/Set-up of Clothing, Pants/Shorts,Socks,Shoes Assistive Devices Dressing Assistive Devices Finish Inspector,Sock Aid Comments OT Dressing Comments Pt educated on LB dressing with hip kit and provided hip kit. Pt donned socks, shoes and pants using equiment and VC. OT ADL-Toileting General Evaluation Toileting Ability Independent Devices Toileting Assistive Devices Grab Bars OT ADL-Bathing Comments OT Bathing Comments Not performed in this session. M5 OT- IP IADL's Start: 07/03/19 14:56 Freq: Status: Active Protocol: Document 07/03/19 14:56 CGR (Rec: 07/03/19 15:05 R [id number]) OT-Instrumental Activities of Daily Living Deficits IADL Deficits Identified Deficits Home Safety Awareness Awareness of Need for Assistance at Home Good Awareness Ability to Problem Solve Emergency Able to Problem Solve Situations Medication Management Medication Management No Deficits Identified Money Management Money Management No Deficits Identified Meal Preparation Meal Preparation Caregiver Provides Assist Superintendent Institution Superintendent Institution Caregiver Provides Assist Driving Driving Comments 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 M6 OT- IP Functional Cognition Start: 07/03/19 14:56 Freq: Status: Active Protocol: Document 07/03/19 14:56 CGR (Rec: 07/03/19 15:05 R [id number]) Cognitive Factors Limiting Selfcare Function Cognitive Ability Level of Alertness Alert Patient Orientation Name,Age,Birthday,Month,Date, Year,Day of Week,Place, Situation Attention Span Ability Capable of Focused Attention, Capable of Sustained Attention Ability to Follow Commands Able to Follow Multi-Step Commands Memory Description No Deficits Noted Safety Awareness No Deficits Noted Problem Solving Ability No deficits Noted OT- Vision and Hearing OT- Hearing Assessment OT- Hearing Assessment Hearing Impaired,Use of Hearing Aids OT- Vision Assessment Visual Acuity Glasses For Reading Visual Attentiveness WFL Occular Pursuits WFL Visual Convergence WFL Visual Vasquez WFL Diplopia Absent M7 OT- IP Mobility and Balance Start: 07/03/19 14:56 Freq: Status: Active Protocol: Document 07/03/19 14:56 CGR (Rec: 07/03/19 15:05 R [id number]) OT- Bed Mobility Assessment Rolling Type of Rolling Log Rolling,Roll to Left Level of Assistance Standby Assistance Supine to Sit Supine to Sit Assist Contact Guard Assistance Scooting Scooting to Edge of Bed Independent OT-Transfer Assessment Sit to and From Stand Sit to and from Stand Standby Assistance Transfers Transfer Ability Standby Assistance Technique Transfer Destination Bed,Chair,Toilet Transfer Technique Stand Step Pivot Devices Transfer Assistive Devices Gait Belt Comments Mobility Comments Pt used his personal trekking poles for mobility. OT- Gait Assessment Gait Gait Assistance Required: Standby Assistance Assistive Devices Assistive Device Gait Belt Comments Gait Ability Comments mobility with trekking poles OT- Balance Assessment Sitting Balance and Reactions Static Sitting Balance Ability Good Dynamic Sitting Balance Ability Fair M8 OT- IP Objective Assessments Start: 07/03/19 14:56 Freq: Status: Active Protocol: Document 07/03/19 14:56 CGR (Rec: 07/03/19 15:05 R [id number]) OT Gross Range of Motion Upper Extremity Range of Motion Assessment Within Functional Limits OT Strength Upper Extremity Strength Assessment Within Functional Limits Comments Strength Comments grossly 4/5 OT- Coordination Assessment Upper Extremity Finger to Nose Test Within Functional Limits Finger Tapping Test Within Functional Limits OT-Muscle Tone Assessment Muscle Tone WNL Yes OT Sensation Assessment Comments Summary Comments No deficits Edema Edema Absent M9 OT- IP Assessment and Plan Start: 07/03/19 14:56 Freq: Status: Active Protocol: Document 07/03/19 14:56 CGR (Rec: 07/03/19 15:05 R [id number]) OT Summary Assessment and Plan Potential Rehabilitation Potential Excellent Analytic Complexity at Evaluation Low Summary OT Impairments Pain,Functional Mobility, Dressing,Bathing,Shower Transfers Progress Towards Goals Progressing Toward Goals,Safe For Discharge Assessment Summary Pt presents as a low complexity evaluation. Pt will benefit from 1 more session to address bathing and review home safety. No further OT needs as pt did well with teaching and back precautions. Goals Dressing Goal Independent,Finish Inspector,Sock Aid Bathing Goal Independent Shower Transfer Goal Independent Days to Meet Goals 1 Frequency of Treatment Frequency Of Treatment Once a Day Treatment Plan OT Treatment Plan ADL Training,Functional Mobility,Patient/Family Education,Discharge Planning Other Treatment Recommendations and Next shower Treatment Focus Discharge Recommendations OT Discharge Recommendations Home with Assistance Home Equipment Needs Pt appears to have all necessary equipment
[2019-07-03 15:39] VITALS: BP 120/66; PULSE 69; RESP 21; TEMP 36.9; O2SAT 96
--- NOTE | 2019-07-03 15:48 | PT.IPTN ---
Current Diagnoses Spondylosis without myelopathy or radiculopathy, lumbar region (07/02/19) Spinal stenosis, lumbar region with neurogenic claudication (07/02/19) Other mechanical complication of other internal orthopedic devices, implants and grafts, initial encounter (07/02/19) Surgery Performed Operation Date: 07/02/19 08:45 Actual Procedures p L1-2 TLIF L2-S1 HWR, L4-5, L5-S1 right hemilaminectomy,L1-S1 PSF w/ instrumentation - Harriet Hidalgo MD Physical Therapy Treatment Note M2 PT-IP Current Condition Start: 07/03/19 08:30 Freq: NEEDED Status: Active Protocol: Document 07/03/19 10:39 AW (Rec: 07/03/19 11:14 AW [id number]) Physical Therapy Current Condition Current Condition Evaluation Date 07/03/19 Treatment Diagnosis s/p TLIF, impaired transfers and gait Onset Date 07/02/19 Precautions Lumbar Precautions Log Roll,No Twisting,Limit Bending,Lifting Restriction of 10 lbs,Gait Belt above Incisional Area Other Precautions recent fall (2 days ago) Weight Bearing Status Weight Bearing Status Full Weight Bearing M3 PT-IP Subjective Start: 07/03/19 08:30 Freq: NEEDED Status: Active Protocol: Document 07/03/19 15:29 AW (Rec: 07/03/19 15:48 AW [id number]) Subjective Physical Therapy Visit Type Type Treatment Note Visit Start Time 15:08 Visit Stop Time 15:24 Total Visit Minutes 16 Number of AUDIT CLERK Visits 0 Physical Therapy Visit Comments Patient Comments Pt up in chair, excited to go for a walk M4 PT-IP Mobility and Gait Start: 07/03/19 08:30 Freq: NEEDED Status: Active Protocol: Document 07/03/19 15:29 AW (Rec: 07/03/19 15:48 AW [id number]) PT-Bed Mobility Assessment Rolling Type of Rolling Log Rolling Level of Assist Standby Assistance Sit to Supine Sit to Supine Standby Assistance PT-Transfer Assessment Sit to and From Stand Sit to and from Stand Standby Assistance Equipment Transfer Assistive Device Gait Belt Orthotic/Prosthetic Devices or Brace: No Transfers Transfer Destination Chair Transfer Technique pt ambulated using B trekking poles Transfer Ability Level of Assist Standby Assistance,Use of Upper Extremities Comments Mobility Comments All mobility required no more than SBA. Pt used bilateral trekking poles to assist with sit to stand. Gait Assessment Gait Gait Assistance Required: Standby Assistance Distance (Feet) 200 Able to Maintain Weight Bearing Status Yes During Gait Assistive Devices Assistive Device Gait Belt Orthotic/Prosthetic Devices or Brace: No Gait Deviations General Gait Pattern Antalgic,Decreased Stride Length,Decreased Feet Clearance Factors Limiting Gait Function Factors Limiting Gait Function Decreased Strength,Pain Comments Gait Comments Pt ambulated wearing his own house shoes SBA using bilateral trekking poles and 4 -point gait pattern. Improved gait speed and step length without need for cues. Stair Climbing Assessment Evaluation Level of Assist On Stairs Contact Guard Assistance Technique/Endurance Stair Climbing Direction Ascend and Descend Stair Climbing Technique Step to Step Number of Steps Climbed 3 Stair Climbing Set # Repetitions (reps) 2 Comments Stair Climbing Comments Pt used bilateral trekking poles and step-to pattern CGA for stairs. He had one loss of balance on first attempt from which he was able to recover without increased assist. 2nd attempt CGA will no LOB. M5 PT-IP Objective Assessments Start: 07/03/19 08:30 Freq: NEEDED Status: Active Protocol: Document 07/03/19 10:39 AW (Rec: 07/03/19 11:14 AW [id number]) Orientation Orientation/Cognition Level of Alertness Alert Orientation Name,Date,Place,Situation Language Function Ability No Deficits Noted Safety Awareness Understands Safety Issues Memory Description No Deficits Noted Gross Range of Motion Upper Extremity ROM Assessment Right Impaired Impairments R wrist limited by pain Lower Extremity ROM Assessment Within Functional Limits Strength Upper Extremity Strength Assessment Within Functional Limits Wrist MMT R wrist not undertaken due to pain (recent fall) Lower Extremity Strength Assessment Within Functional Limits Comments Strength Comments grossly 4+/5 all major muscle groups Coordination Assessment Gross Coordination Gross Coordination WNL Sensation Assessment Sensation Gross Sensation WNL M6 PT-IP Treatment Start: 07/03/19 08:30 Freq: NEEDED Status: Active Protocol: Document 07/03/19 10:39 AW (Rec: 07/03/19 11:14 AW [id number]) Physical Therapy Treatment Education Education Provided Precautions,Weight Bearing Status,Post-Op Packet,Safety M7 PT-IP Assessment and Plan Start: 07/03/19 08:30 Freq: NEEDED Status: Active Protocol: Document 07/03/19 15:29 AW (Rec: 10/17/19 15:48 AW [id number]) PT Summary Assessment and Plan Summary Assessment Summary Pt required decreased level of assist for all mobility this afternoon. He is steady on his feet with bilateral trekking poles. Will focus next session on teaching two-point gait and continuing stair training. Goals Bed Mobility Goal Independent Transfer Goal Standby Assistance Gait Goal Independent Gait Distance 200 Other Goals up/down 2 steps with no rails and COIN PURSE ASSEMBLER for safe entry to the home. Days to Meet Goals 2 Frequency of Treatment Frequency Of Treatment Twice a Day Treatment Plan Physical Therapy Treatment Plan Bed Mobility Training,Transfer Training,Gait Training, Therapeutic Exercise,Balance Retraining,Post Op Education, Discharge Planning,Hot or Cold Pack,Neuromuscular Re-ed, Coordination Retraining,Manual Therapy Other Recommendations and Next Treatment Teach two-point gait with Focus trekking poles. Continue stair training with poles Recommendations To Nursing Amount of Assist Needed 1 Person Assist Discharge Recommendations PT Discharge Recommendations Home with Assistance, Outpatient PT
[2019-07-03] MEDS: ASPIRIN EC 81 MG TABLET PO (17:02)
[2019-07-03] MEDS: FENOFIBRATE 145 MG TABLET PO (17:02)
[2019-07-03 20:16] VITALS: BP 121/63; PULSE 68; RESP 20; TEMP 36.7; O2SAT 96
[2019-07-03] MEDS: SENNOSIDES 8.6 MG TABLET 17.2 MG PO (20:28)
[2019-07-03] MEDS: ROSUVASTATIN 10 MG TABLET PO (20:28)
[2019-07-03] MEDS: LOSARTAN 25 MG TABLET PO (20:28)
[2019-07-03 23:00] VITALS: BP 108/52; PULSE 66; RESP 16; TEMP 37.2; O2SAT 97
--- NOTE | 2019-07-03 23:21 | P.PN_ITS ---
Subjective Subjective Date Patient Seen: 07/03/19 Time Patient Seen: 17:30 Interval history: Patient seen and examined by me today, and is new to me. The patient is a 74-year-old male who underwent surgery on 07/02/19 for L1 to TLIF L2-S1 HW are L4-L5-L5-S1 right monisha laminectomy with instrumentation. Patient had an uncomplicated operative course. Patient has a history ofischemic cardiomyopathy with a known ejection fraction of 30%. He had complete AV block and has subsequently had a pacer and AICD placement. His pacemaker was reprogrammed for the procedure. His AICD was reprogrammed as well. Following this patient developed atrial flutter. He con verted spontaneously to sinus tachycardia. This felt to have significant pain which was treated and his heart rate improved. The patient has known heart disease. He was noted by nursing to be doing well, and ambulated with a walker and physical therapy. Patient states he has had 10 back surgeries and today post- operatively, states his left foot is numb which was not prior to surgery. He is concerned due to having a planned left knee replacement in a couple of weeks. States he has had left foot-drop for the past 2 months and plans to obtain a special orthotic to help correct this. He denies light headedness, chest pain, shortness of breath, nausea or vomiting, dysuria, urinary or fecal incontinence, or calf pain. The patient has a CPAP on at times. He is noted to be apneic but responds well to the CPAP machine. The patient has a long complicated cardiac history, this includes a history of myocardial infarction, ischemic cardiomyopathy, chronic systolic heart failure with an ejection fraction of 30%, history of coronary disease status post myocardial infarction at age 41, and known cardiac arrhythmias. Exam Vital Signs (past 8 hours): - 07/03/19 15:39 07/03/19 20:16 Temperature 98.4 F 98.1 F Pulse Rate 69 68 Respiratory Rate 21 20 Blood Pressure 120/66 121/63 Pulse Oximetry 96 96 Oxygen Delivery Method CPAP Oxygen Flow Rate 0 Narrative Exam Narrative: Gen: Alert, oriented, well-developed 74 y.o. female, appears comfortable HEENT: normocephalic, atraumatic, conjunctiva clear, sclera non-icteric, oral mucosa pink and moist Neck: supple, full ROM Resp: Lungs CTA, non-labored breathing CV: RRR, no murmur or rubs Abd: soft, non-tender, normoactive BTs Skin: no lesions or rashes, dry and intact. Back dressing dry and intact w/no signs of drainage Neuro: Alert and oriented X 4 w/no focal deficits. Plantar aspect of left foot is numb. Extremities: moves all 4 extremities, is ambulatory, negative Desiree?s sign Psyche: normal mood and affect. Objective Labs Result Diagrams: 07/03/19 05:55 Labs: Laboratory Results - last 24 hr 07/03/19 05:55 Hgb 10.8 L Hct 32.3 L Assessment & Plan Assessment & Plan narrative: 1. 74-year-old male with a history of spinal stenosis, status post T lift with instrumentation. Patient had successful surgery with no significant complications. - Postoperative course to be managed by Dr. Hidalgo - Informed orthopedic PA of patient's complaint of left foot numbness and enc ouraged patient to discuss with Dr. Hidalgo 2. History of ischemic cardiomyopathy, patient with a history of myocardial infarction at age 41, known ejection fraction of 30%, chronic stable acute systolic heart failure. - Patient to continue his usual home regimen to include spironolactone, Lasix, Coreg, losartan. - eliminate any additional IV fluid given his known history of congestive heart failure. - Will follow electrolytes and manage heart failure closely 3. Obstructive sleep apnea, chronic, present on admission - Continue CPAP 4. Hypertension, chronic and stable - continue home dose of losartan 25 mg po at bedtime 5. Hyperlipidemia, chronic and stable - Continue home dose of rosuvastatin 10 mg po at bedtime 6. Anxiety, chronic and stable - Ativan as needed - Continue home dose of alprazolam 7. GERD, - Currently not on a ppi 8. Transient atrial flutter postoperatively, now resolved, - Patient with DDDR pacer placed a with AICD. This has been interrogated and is functional.
[2019-07-04] MEDS: HYDROCODONE/ACET 5/325 TABLET 2 TAB PO ×3 (02:25→10:26)
[2019-07-04] MEDS: ALPRAZolam 0.5 MG TABLET PO ×2 (02:25→08:50)
[2019-07-04 05:30] VITALS: BP 110/58; PULSE 71; RESP 16; TEMP 36.2; O2SAT 95
--- NOTE | 2019-07-04 06:51 | PC.NURSE ---
NOC NOTE: Pt reports pain is tolerable with [place] and Xanax given together at 0230, Xanax is ordered Q6hrs PRN, pt states that he does not seperate his doses by 6hours during the day, that he takes it when he needs it. [place] was given a second time this shift at 0640, explained to pt that it was too soon for xanax, he was not happy but understands the nurses limitations with the order.
--- NOTE | 2019-07-04 08:41 | PM.DS.1 ---
History of Present Illness History of Present Illness Date Patient Seen: 07/04/19 Time Patient Seen: 08:42 Chief complaint: Translaminar Interbody Fusion/Laminotomy Narrative: Please see HPI previously recorded in chart. Discharge Providers Provider Date of admission: 07/02/19 06:37 Discharge Date: 07/04/19 Primary care physician: Purvi John MD Consults: 07/02/19 16:57 Consult to Occupational Therapy Evaluate & Treat Comment: Physician Instructions: Evaluate and treat Consult to Physical Therapy Evaluate & Treat Comment: Physician Instructions: Evaluate and Treat Discharge provider: Carlita Grover PA-C Summary Hospital Course Discharge Diagnosis: s/p L1-2 TLIF, L2-S1 HWR, and L1-S1 PSF. Hospital Course: Lele is a 74 year old male who has had chronic back pain and worsening lumbar radiculopathy. Patient had prior lumbar fusion with progressively worsening back pain with CT showing loosening of S1 screws bilaterally. Patient is also found to have residual foramen stenosis at L4-5 L5-S1 level correlating with his current radiculopathy. Patient failed multiple conservative management with worsening pain weakness and numbness in her lower extremity. Patient has been having difficulty performing activity of daily living. After discussing risks benefits of treatment options, patient elected proceed with surgery. After obtaining informed consent the patient was taken to the operating room where he underwent a L1-2 TLIF, L2-S1 HWR, and L1-S1 PSF with Dr. Hidalgo which he tolerated well. In the post operative area he was noted to have an episode of transient atrial flutter which resolved spontaneously POD#0. Due to this along with his history of cardiomyopathy and pacemaker/ICD the hospitalist team was consulted. Once he was transferred to the acute care floor he progressed well post operatively. POD#1 he began to mobilize well with physical therapy and thorpe catheter was removed. Once removed he was voiding appropriately. ASA 81mg was restarted POD#1. His pain was well controlled with [place] except on POD#2 after working with PT he had exacerbation that required IV diaudid. He will be discharged to home with script for [place] which he was taking preoperatively as well as short script of Dilaudid for breakthrough pain. He was instructed in their use. He was instructed to resume his Plavix tomorrow. Dressing was changed to a Coversite prior to discharge. Outpatient follow up is in place. Patient is medically stable for discharge to home. Status at Discharge Cognitive/behavioral status at discharge: oriented Functional status at discharge: uses cane/walker Overall status at discharge: patient is progressing back to baseline Exam Vital Signs (past 8 hours): Oxygen Delivery Method CPAP Oxygen Flow Rate 0 Narrative Exam Narrative: 74 year old male resting comfortably in bed. Alert and oriented in no acute distress. Dressing in place over lumbar spine is CDI. Intact motor function in BLE. Calves soft, compressible. Palpable pedal pulses. Objective Labs Result Diagrams: 07/03/19 05:55 Discharge Plan Discharge Plan Patient Disposition: Home Discharge comment: Home after PT/shower Discharge Med Rec/Prescriptions Prescriptions: New hydrocodone-acetaminophen 5-325 mg Tablet 2 tab PO Q4H PRN (Reason: Pain, Moderate (4-6)) Qty: 60 RF: 0 docusate sodium [DOK] 100 mg Capsule 100 mg PO BID Qty: 30 RF: 0 hydroxyzine pamoate 25 mg Capsule 25 mg PO Q4HR PRN (Reason: Nausea And Vomiting) Qty: 30 RF: 0 hydromorphone [Dilaudid] 2 mg tablet 2 mg PO Q4-6H PRN (Reason: pain (scale score 7-10)) Qty: 40 RF: 0 Continued fenofibrate nanocrystallized [Tricor] 145 MG tablet 145 mg PO QPM Qty: 0 RF: 0 carvedilol [Coreg] 25 MG tablet 25 mg PO BID Qty: 0 RF: 0 alprazolam 0.5 MG tablet 0.5 mg PO Q8H PRN (Reason: Anxiety) Qty: 0 RF: 0 rosuvastatin [Crestor] 20 MG tablet 10 mg PO HS Qty: 0 RF: 0 losartan [Cozaar] 25 MG tablet 25 mg PO HS Qty: 0 RF: 0 multivitamin Tablet,Chewable 1 tab PO DAILY Qty: 0 RF: 0 furosemide 40 MG tablet 40 mg PO DAILY PRN (Reason: Nocturia per ) Qty: 0 RF: 0 spironolactone [Aldactone] 25 MG tablet 25 mg PO QDAY Qty: 0 RF: 0 clopidogrel [Plavix] 75 MG tablet 75 mg PO QDAY Qty: 0 RF: 0 vardenafil [Levitra] 10 MG tablet 10 mg PO PRN PRN (Reason: Erectile Dysfunction) Qty: 0 RF: 0 nitroglycerin 400 mcg/spray Aerosol,[place] 1 spray Sublingual Q5M PRN (Reason: Chest Pain) RF: 0 aspirin 81 mg Tablet,Delayed Release (Dr/Ec) 81 mg PO DAILY RF: 0 calcium carbonate [Tums] 200 mg calcium (500 mg) Tablet,Chewable 1 tab PO PRN PRN (Reason: Indigestion) Qty: 0 RF: 0 potassium chloride 10 mEq Tablet Extended Release 10 meq PO DAILY PRN (Reason: Takes with furosemide) RF: 0 Discontinued hydrocodone-acetaminophen [[place]] 7.5-325 mg tablet 2 tab PO Q4-6H PRN (Reason: pain) Qty: 60 RF: 0 Follow up/Referrals: Purvi John MD [Primary Care Provider] - Harriet Hidalgo MD [Physician] - As previously scheduled Provider Discharge Instructions Diet: Diet as Tolerated Activity: No bending, lifting, or twisting. Cold/Heat Therapy: Ice packs as needed. Skin/Wound/Dressing Care Report to your healthcare provider any signs of infection, such as:: chills, fever, night sweats, unusual drainage and unusual redness Dressing: Please leave dressing in place. If dressing becomes saturated please call the office. Visit Report/Discharge Packet Instructions: DI for Constipation, How to Prevent Falls, DI for Transforaminal Lumbar Interbody Fusion Discharge Data Primary Care Provider: Purvi John Discharges patient from system. Discharge Date/Time: 07/04/19 12:30
[2019-07-04 08:43] VITALS: BP 106/43; PULSE 66; RESP 16; TEMP 36.6; O2SAT 96
[2019-07-04] MEDS: MULTIVITAMIN 1 TABLET 1 TAB PO (08:50)
[2019-07-04] MEDS: DOCUSATE 100 MG CAPSULE PO (08:50)
[2019-07-04] MEDS: CARVEDILOL 25 MG TABLET PO (08:50)
[2019-07-04] MEDS: SPIRONOLACTONE 25 MG TABLET PO (08:50)
--- NOTE | 2019-07-04 09:40 | PT.IPTN ---
Current Diagnoses Spondylosis without myelopathy or radiculopathy, lumbar region (07/02/19) Spinal stenosis, lumbar region with neurogenic claudication (07/02/19) Other mechanical complication of other internal orthopedic devices, implants and grafts, initial encounter (07/02/19) Surgery Performed Operation Date: 07/02/19 08:45 Actual Procedures p L1-2 TLIF L2-S1 HWR, L4-5, L5-S1 right hemilaminectomy,L1-S1 PSF w/ instrumentation - Harriet Hidalgo MD Physical Therapy Treatment Note M2 PT-IP Current Condition Start: 07/03/19 08:30 Freq: NEEDED Status: Active Protocol: Document 07/03/19 10:39 AW (Rec: 07/03/19 11:14 AW [id number]) Physical Therapy Current Condition Current Condition Evaluation Date 07/03/19 Treatment Diagnosis s/p TLIF, impaired transfers and gait Onset Date 07/02/19 Precautions Lumbar Precautions Log Roll,No Twisting,Limit Bending,Lifting Restriction of 10 lbs,Gait Belt above Incisional Area Other Precautions recent fall (2 days ago) Weight Bearing Status Weight Bearing Status Full Weight Bearing M3 PT-IP Subjective Start: 07/03/19 08:30 Freq: NEEDED Status: Active Protocol: Document 07/04/19 09:40 GGD (Rec: 07/04/19 14:47 GGD [email or web address]) Subjective Physical Therapy Visit Type Type Treatment Note Visit Start Time 09:18 Visit Stop Time 09:41 Total Visit Minutes 23 Number of PLANER MILL GRADER Visits 1 Physical Therapy Visit Comments Patient Comments Pt willing to work with therapy. Therapy Pain Assessment Pain When Pain Assessed During Mobility Pain Present Pain Present Pain Reported Location Lower Back Intensity 5 Scale Used Numeric (1 - 10) M4 PT-IP Mobility and Gait Start: 07/03/19 08:30 Freq: NEEDED Status: Active Protocol: Document 07/04/19 09:40 GGD (Rec: 07/04/19 14:47 GGD [id number]) PT-Bed Mobility Assessment Rolling Type of Rolling Log Rolling Level of Assist Standby Assistance Sit to Supine Sit to Supine Standby Assistance PT-Transfer Assessment Sit to and From Stand Sit to and from Stand Standby Assistance Equipment Transfer Assistive Device Gait Belt Orthotic/Prosthetic Devices or Brace: No Transfers Transfer Destination Bed Transfer Ability Level of Assist Standby Assistance,Use of Upper Extremities Comments Mobility Comments Pt ambulated with bilateral trekking poles Gait Assessment Gait Gait Assistance Required: Standby Assistance Distance (Feet) 250 Able to Maintain Weight Bearing Status Yes During Gait Assistive Devices Assistive Device Gait Belt Orthotic/Prosthetic Devices or Brace: No Gait Deviations General Gait Pattern Antalgic,Decreased Stride Length,Decreased Feet Clearance Factors Limiting Gait Function Factors Limiting Gait Function Decreased Strength,Pain Comments Gait Comments Pt ambulated with bilateral trekking poles with SBA Stair Climbing Assessment Evaluation Level of Assist On Stairs Contact Guard Assistance Technique/Endurance Stair Climbing Direction Ascend and Descend Stair Climbing Technique Step to Step Number of Steps Climbed 3 Stair Climbing Set # Repetitions (reps) 2 Comments Stair Climbing Comments Pt use trekking poles for stair mobility. M5 PT-IP Objective Assessments Start: 07/03/19 08:30 Freq: NEEDED Status: Active Protocol: Document 07/03/19 10:39 AW (Rec: 07/03/19 11:14 AW [id number]) Orientation Orientation/Cognition Level of Alertness Alert Orientation Name,Date,Place,Situation Language Function Ability No Deficits Noted Safety Awareness Understands Safety Issues Memory Description No Deficits Noted Gross Range of Motion Upper Extremity ROM Assessment Right Impaired Impairments R wrist limited by pain Lower Extremity ROM Assessment Within Functional Limits Strength Upper Extremity Strength Assessment Within Functional Limits Wrist MMT R wrist not undertaken due to pain (recent fall) Lower Extremity Strength Assessment Within Functional Limits Comments Strength Comments grossly 4+/5 all major muscle groups Coordination Assessment Gross Coordination Gross Coordination WNL Sensation Assessment Sensation Gross Sensation WNL M6 PT-IP Treatment Start: 07/03/19 08:30 Freq: NEEDED Status: Active Protocol: Document 07/04/19 09:40 GGD (Rec: 07/04/19 14:47 GGD [email or web address]) Physical Therapy Treatment Education Education Provided Precautions M7 PT-IP Assessment and Plan Start: 07/03/19 08:30 Freq: NEEDED Status: Active Protocol: Document 07/04/19 09:40 GGD (Rec: 07/04/19 14:47 GGD [email or web address]) PT Summary Assessment and Plan Summary Assessment Summary Pt improving with mobility. He had no LOB with stair mobility. He needed cues for step length with gait. Pt safe for home D/C when medically stable. Frequency of Treatment Frequency Of Treatment Twice a Day Treatment Plan Physical Therapy Treatment Plan Bed Mobility Training,Transfer Training,Gait Training, Therapeutic Exercise,Balance Retraining,Post Op Education, Discharge Planning,Hot or Cold Pack,Neuromuscular Re-ed, Coordination Retraining,Manual Therapy Other Recommendations and Next Treatment Teach two-point gait with Focus trekking poles. Continue stair training with poles Recommendations To Nursing Amount of Assist Needed 1 Person Assist Discharge Recommendations PT Discharge Recommendations Home with Assistance
[2019-07-04] MEDS: HYDROMORPHONE 0.5 MG INJ IV (11:29)
--- NOTE | 2019-07-04 11:42 | PM.PN.1 ---
Subjective Subjective Date Patient Seen: 07/04/19 Time Patient Seen: 11:42 Interval history: He is seen today to follow-up his lumbar spine surgery, pacemaker, ischemic cardiomyopathy, hypertension, anxiety. He will be discharging home, per Orthopedics. His cardiac status has remained stable without any complications during this admission. He will be following up with Dr. Purvi Okeefe in [place]. He lives on [address]. Exam Vital Signs (past 8 hours): - 07/04/19 05:30 07/04/19 08:43 Temperature 97.2 F L 97.9 F Pulse Rate 71 66 Respiratory Rate 16 16 Blood Pressure 110/58 L 106/43 L Pulse Oximetry 95 96 Oxygen Delivery Method CPAP Oxygen Flow Rate 0 Narrative Exam Narrative: He is alert and oriented x3. He has no new complaints. Heart is regular rate and rhythm without murmur. Lungs are clear to auscultation bilaterally. Extremities have no ankle edema. Objective Labs Result Diagrams: 07/03/19 05:55 Assessment & Plan Assessment & Plan narrative: 1. 74-year-old male with a history of spinal stenosis, status post T lift with instrumentation. Patient had successful surgery with no significant complications. - Postoperative course routine 2. History of ischemic cardiomyopathy, patient with a history of myocardial infarction at age 41, known ejection fraction of 30%, chronic stable acute systolic heart failure. - Patient to continue his usual home regimen to include spironolactone, Lasix, Coreg, losartan. 3. Obstructive sleep apnea, chronic, present on admission - Continue CPAP 4. Hypertension, chronic and stable - continue home dose of losartan 25 mg po at bedtime 5. Hyperlipidemia, chronic and stable - Continue home dose of rosuvastatin 10 mg po at bedtime 6. Anxiety, chronic and stable - Ativan as needed - Continue home dose of alprazolam 7. GERD, - Currently not on a ppi 8. Transient atrial flutter postoperatively, now resolved, - Patient with DDDR pacer placed a with AICD. This has been interrogated and is functional.
--- NOTE | 2019-07-04 12:15 | OT.IP.TRT ---
Current Diagnoses Spondylosis without myelopathy or radiculopathy, lumbar region (07/02/19) Spinal stenosis, lumbar region with neurogenic claudication (07/02/19) Other mechanical complication of other internal orthopedic devices, implants and grafts, initial encounter (07/02/19) Surgery Performed Operation Date: 07/02/19 08:45 Actual Procedures p L1-2 TLIF L2-S1 HWR, L4-5, L5-S1 right hemilaminectomy,L1-S1 PSF w/ instrumentation - Harriet Hidalgo MD Occupational Therapy Treatment Note M2 OT-IP Current Condition Start: 07/03/19 14:56 Freq: Status: Active Protocol: Document 07/03/19 14:56 CGR (Rec: 07/03/19 15:05 CGR [id number]) Occupational Therapy Current Condition Current Condition Evaluation Date 07/03/19 Treatment Diagnosis L1-2 TLIF, L2-S1 HWR, L1-S1 RSF Diagnosis Onset Date 07/02/19 Post Operative Precautions Lumbar Precautions Log Roll,No Twisting,Limit Bending,Lifting Restriction of 10 lbs,Gait Belt above Incisional Area M3 OT- IP Subjective and Pain Start: 07/03/19 14:56 Freq: Status: Active Protocol: Document 07/04/19 12:06 CGR (Rec: 07/04/19 12:15 CGR [id number]) OT- Subjective Occupational Therapy Visit Type Type Progress Note Visit Start Time 09:43 Visit Stop Time 10:18 Total Visit Minutes 35 Notes Pts present for the second half of the treatment. Occupational Therapy Visit Comments Patient Comments I am ready to go home. OT Pain Assessment Pain When Pain Assessed During Mobility Pain Present Pain Present Pain Reported Location Lower Back Intensity 8 Scale Used Numeric (1 - 10) Management Techniques Distraction,Modification of Treatment M4 OT- IP ADL's Start: 07/03/19 14:56 Freq: Status: Active Protocol: Document 07/04/19 12:06 CGR (Rec: 07/04/19 12:15 CGR [id number]) OT EDE-Ntlp-Enunaad Comments OT Self-Feeding Comments Not meal time OT ADL-Grooming General Evaluation Grooming Ability Independent Areas Needing Assistance Combing/Brushing Hair Comments OT Grooming Comments seated in chair OT ADL-Oral Care Comments Oral Care Comments Pt states already performed this AM OT ADL-Dressing General Eval Upper Body Dressing Ability Independent Lower Body Dressing Ability Independent Areas Needing Assistance Pull-Over Shirt,Underpants/ Brief,Pants/Shorts,Socks,Shoes Assistive Devices Dressing Assistive Devices Silver Cleaner,Sock Aid Comments OT Dressing Comments Pt performed IND with DME and one VC OT ADL-Toileting General Evaluation Toileting Ability Independent OT ADL-Bathing Bathing Type Bathing Type Shower General Evaluation Bathing Ability Independent Areas Needing Assistance Retrieving/Setting Up Items Devices Bathing Equipment Shower Chair with Arms Comments OT Bathing Comments Pt able to perform without any physical assist. Supervision level which can provide at home. M5 OT- IP IADL's Start: 07/03/19 14:56 Freq: Status: Active Protocol: Document 07/03/19 14:56 CGR (Rec: 07/03/19 15:05 CGR [id number]) OT-Instrumental Activities of Daily Living Deficits IADL Deficits Identified Deficits Home Safety Awareness Awareness of Need for Assistance at Home Good Awareness Ability to Problem Solve Emergency Able to Problem Solve Situations Medication Management Medication Management No Deficits Identified Money Management Money Management No Deficits Identified Meal Preparation Meal Preparation Caregiver Provides Assist Agricultural Adviser Agricultural Adviser Caregiver Provides Assist Driving Driving Comments 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 M6 OT- IP Functional Cognition Start: 07/03/19 14:56 Freq: Status: Active Protocol: Document 07/03/19 14:56 CGR (Rec: 07/03/19 15:05 CGR [id number]) Cognitive Factors Limiting Selfcare Function Cognitive Ability Level of Alertness Alert Patient Orientation Name,Age,Birthday,Month,Date, Year,Day of Week,Place, Situation Attention Span Ability Capable of Focused Attention, Capable of Sustained Attention Ability to Follow Commands Able to Follow Multi-Step Commands Memory Description No Deficits Noted Safety Awareness No Deficits Noted Problem Solving Ability No deficits Noted OT- Vision and Hearing OT- Hearing Assessment OT- Hearing Assessment Hearing Impaired,Use of Hearing Aids OT- Vision Assessment Visual Acuity Glasses For Reading Visual Attentiveness WFL Occular Pursuits WFL Visual Convergence WFL Visual Vasquez WFL Diplopia Absent M7 OT- IP Mobility and Balance Start: 07/03/19 14:56 Freq: Status: Active Protocol: Document 07/04/19 12:06 CGR (Rec: 07/04/19 12:15 CGR [id number]) OT- Bed Mobility Assessment Rolling Type of Rolling Log Rolling Level of Assistance Independent Supine to Sit Supine to Sit Assist Independent Scooting Scooting to Edge of Bed Independent OT-Transfer Assessment Sit to and From Stand Sit to and from Stand Standby Assistance Transfers Transfer Ability Standby Assistance Technique Transfer Destination Bed,Chair,Shower Stall,Toilet Transfer Technique Stand Step Pivot Comments Mobility Comments Pt uses trekking poles for mobility. OT- Gait Assessment Gait Gait Assistance Required: Standby Assistance Comments Gait Ability Comments Mobility with trekking poles OT- Balance Assessment Sitting Balance and Reactions Static Sitting Balance Ability Normal Dynamic Sitting Balance Ability Good Standing Balance and Reactions Static Standing Balance Ability Good Dynamic Standing Balance Ability Fair M8 OT- IP Objective Assessments Start: 07/03/19 14:56 Freq: Status: Active Protocol: Document 07/03/19 14:56 CGR (Rec: 07/03/19 15:05 CGR [id number]) OT Gross Range of Motion Upper Extremity Range of Motion Assessment Within Functional Limits OT Strength Upper Extremity Strength Assessment Within Functional Limits Comments Strength Comments grossly 4/5 OT- Coordination Assessment Upper Extremity Finger to Nose Test Within Functional Limits Finger Tapping Test Within Functional Limits OT-Muscle Tone Assessment Muscle Tone WNL Yes OT Sensation Assessment Comments Summary Comments No deficits Edema Edema Absent M9 OT- IP Assessment and Plan Start: 07/03/19 14:56 Freq: Status: Active Protocol: Document 07/04/19 12:06 CGR (Rec: 07/04/19 12:15 CGR [id number]) OT Summary Assessment and Plan Potential Rehabilitation Potential Excellent Analytic Complexity at Evaluation Low Summary OT Impairments Pain,Functional Mobility, Dressing,Bathing,Shower Transfers Progress Towards Goals Progressing Toward Goals,Safe For Discharge Assessment Summary Pt presents as a low complexity evaluation. Pt is ready for discharge home. No further OT needs. Pt is planned for discharge home today. Goals Dressing Goal Independent,Silver Cleaner,Sock Aid Bathing Goal Independent Shower Transfer Goal Independent Days to Meet Goals 1 Frequency of Treatment Frequency Of Treatment Once a Day Treatment Plan OT Treatment Plan ADL Training,Functional Mobility,Patient/Family Education,Discharge Planning Discharge Recommendations OT Discharge Recommendations Home with Assistance Home Equipment Needs Pt appears to have all necessary equipment
--- NOTE | 2019-07-04 14:58 | PT-IP ANOTE ---
checked on pt at 1345 but pt has been d/c already.
--- NOTE | 2019-07-04 15:29 | PC.NURSE ---
LATE ENTRY: SHIFT SUMMARY/DISCHARGE: PATIENT HAD PAIN 10/10 AFTER SITTING UP IN RECLINER AND THEN SHOWERING WITH OT. DRSG CHANGED PER ORDER. ORTHO PA GUERLINE NOTIFIED. SHE SPOKE WITH PATIENT AND SPOUSE ABOUT A ONE TIME IV DILAUDID DOSE TO GET PAIN UNDER CONTROL. PATIENT AGREEABLE TO TRY. REPORTS HE HAD HX OF RESP DEPRESSION IMMEDIATELY POST-OP IN HIS HX. ORTHO PA ASSURED PATIENT THAT A SMALL DOSE WOULD NOT CAUSE RESP DEPRESSION. PATIENT TOLERATED WELL. PAIN DOWN TO 5-6/10. REPORTS TOLERABLE. PA WROTE SCRIPT FOR DILAUDID W/ EXPLICIT INSTRUCTIONS TO USE ONLY FOR BREAKTHRU PAIN AND NOT TOGETHER WITH THE NORCO. PATIENT AND SPOUSE VERBALIZE UNDERSTANDING. PATIENT READY TO DC HOME. LEFT BY WC IN NO S/SX'S OF DISTRESS WITH ALL BELONGINGS AND PAPERWORK, AND SCRIPTS WITH COORDINATOR ESCORT TO VEHICLE AT 1230
== END 2019-07-04 12:30 | disposition home or self-care (01) | DRG 454 ==
PROVIDERS: Physician Assistant Medical; Admitting Provider Orthopaedic Surgery Orthopaedic Surgery of the Spine; Family Provider Family Medicine; PCP Family Medicine; Visit Provider Orthopaedic Surgery Orthopaedic Surgery of the Spine
PROC: 0SG00AJ Fusion of Lumbar Vertebral Joint with Interbody Fusion Device, Posterior Approach, Anterior Column, Open Approach (ICD-10-PCS; principal; 2019-07-02 08:45)
DX: M48.062 Spinal stenosis, lumbar region with neurogenic claudication (principal); I48.92 Unspecified atrial flutter; I50.22 Chronic systolic (congestive) heart failure; I44.2 Atrioventricular block, complete; T84.038A Mechanical loosening of other internal prosthetic joint, initial encounter; M96.0 Pseudarthrosis after fusion or arthrodesis; M47.26 Other spondylosis with radiculopathy, lumbar region; I25.5 Ischemic cardiomyopathy; Z95.810 Presence of automatic (implantable) cardiac defibrillator; F41.9 Anxiety disorder, unspecified; G47.33 Obstructive sleep apnea (adult) (pediatric); I25.10 Atherosclerotic heart disease of native coronary artery without angina pectoris; Z87.891 Personal history of nicotine dependence; E78.5 Hyperlipidemia, unspecified; G89.18 Other acute postprocedural pain
CPT/HCPCS: 36415; 72100; 76000; 85014; 85018; 85610; 94762; 97116; 97161; 97165; 97530; 97535; C1776; C9290; J0131; J0330; J0690; J1100; J1170; J2250; J2270; J2405; J2704; J3010; J3410

== ENCOUNTER → 2020-01-12 11:22 | Outpatient (CLI) | payer OTHER, SELFPAY ==
[2019-07-02 17:18] VITALS: BMI 32.0
--- NOTE | 2020-01-12 | DI.CT.S_ITS ---
PROCEDURE: CT LUMBAR SPINE WO CON INDICATIONS: Radiculopathy, lumbar region TECHNIQUE: Noncontrast 3 mm thick sections acquired from the T12 level to the sacrum. Sagittal and coronal reformats were constructed. For radiation dose reduction, the following was used: automated exposure control. COMPARISON: [facility], CR, XR LUMBAR SPINE 2-3V, 07/02/2019, 10:16. [facility], CR, XR LUMBAR SPINE 2-3V, 06/06/2018, 13:39. [facility], [place], BONE SCAN WHOLE BODY, 08/07/2016, 13:26. [facility], CT, L-SPINE WITHOUT CONTRAST, 03/04/2014, 5:09. [facility], , L-SPINE 2-3 VIEWS, 06/23/2016, 9:07. [facility], CT, L-SPINE WITHOUT CONTRAST, 07/12/2016, 14:28. FINDINGS: Image quality: There is streak artifact associated with the metallic hardware. Bones: No acute vertebral body compression fractures. No suspicious lytic or blastic bony lesions. Central spinal caliber is of normal overall caliber. No pars defects. Postoperative changes are seen, with bilateral pedicle screws at the L1-S1 levels. The screws appear well placed, with note made that the L1 screws are seen along the anterior aspect of the L1 vertebral body. Vertical fixation rods are seen. Disc spacers are seen throughout the lumbar spine. Lucency is seen adjacent to the S1 screws. No additional findings of hardware failure or hardware loosening are seen. There has been removal of portions of the posterior elements. Grade 1 anterolisthesis is seen at the L4-L5 level. T12-L1: No significant abnormality is seen. L1-L2: The disc height is well-preserved. Mild to moderate disc bulge is seen. There is at least moderate left-sided and mild to moderate right-sided neural frontal narrowing seen. Likely mild central canal narrowing is seen. When comparison is made with the prior examination, these findings are similar. L2-L3: At least moderate disc bulge is seen. There is moderate to severe right-sided and at least moderate left-sided neural foraminal narrowing seen. Mild central canal narrowing is seen. When comparison is made with the prior examination, these findings are similar. L3-L4: Mild to moderate disc bulge is seen. There is at least moderate bilateral neural foraminal narrowing seen. No significant central canal narrowing is seen. No significant change from the prior. L4-L5: At least moderate disc bulge is seen. At least moderate facet hypertrophy is seen. Moderate bilateral neural foraminal narrowing is seen. The central canal is widely patent. The degree of right-sided neural foraminal narrowing has improved compared to the prior examination. L5-S1: At least moderate disc bulge is seen. Moderate bilateral neural foraminal narrowing is seen. The central canal is widely patent. When comparison is made with the prior examination, these findings are similar. Soft tissues: No retroperitoneal masses or hematomas. Partial visualization is seen of distal abdominal aortic ectasia, measuring 2.7 cm. Atherosclerotic calcification is noted. Sternotomy wires and AICD leads can be seen on the paint roller assembler image. IMPRESSION: Extensive postoperative hardware, L1-S1. There is lucency seen surrounding the S1 screws, which is consistent with loosening change. This loosening change is new compared to 2016. Improved right-sided neural foraminal narrowing at L4-L5. Otherwise, no significant change in the degenerative narrowings compared to the prior 2016 images. Incidental note is made of: Sternotomy AICD Distal abdominal aortic ectasia, without aneurysm Dictated by: Cas Soria M.D. on 01/12/2020 at 10:56 Approved by: Cas Soria M.D. on 01/12/2020 at 11:05
== END ==
PROVIDERS: Family Provider Family Medicine; PCP Family Medicine; Referring Provider Orthopaedic Surgery Orthopaedic Surgery of the Spine; Visit Provider Orthopaedic Surgery Orthopaedic Surgery of the Spine
DX: M51.16 Intervertebral disc disorders with radiculopathy, lumbar region (principal); M51.17 Intervertebral disc disorders with radiculopathy, lumbosacral region; M48.061 Spinal stenosis, lumbar region without neurogenic claudication; M48.07 Spinal stenosis, lumbosacral region; I77.811 Abdominal aortic ectasia; Z98.1 Arthrodesis status; Z95.810 Presence of automatic (implantable) cardiac defibrillator
CPT/HCPCS: 72131

== ENCOUNTER → 2020-02-18 15:53 | Outpatient (CLI) | payer OTHER, SELFPAY ==
[2019-07-02 17:18] VITALS: BMI 32.0
[2020-02-18 17:28] LABS: Add Manual Diff / Slide Review NO; Basophils Absolute Auto 0 /uL (0-100); Basophils Percent Auto 0.4 % (0-2); Eosinophils Absolute Auto 100 /uL (0-450); Eosinophils Percent Auto 1.5 % (2-4); Hematocrit 39.9 % (41-53); Hemoglobin 13.8 g/dL (13.5-17.5); Lymphocytes Absolute Auto 3000 /uL (1100-4500); Lymphocytes Percent Auto 34.9 % (25-40); Mean Corpuscular HGB Conc 34.6 % (30-36); Mean Corpuscular Hemoglobin 30.7 PG (26-34); Mean Corpuscular Volume 88.6 fL (80-100); Monocytes Absolute Auto 900 /uL (0-900); Monocytes Percent Auto 11.1 % (3-14); Neutrophils Absolute Auto 4400 /uL (1500-7000); Neutrophils Percent Auto 52.1 % (50-75); Platelet Count 295 X10^3/uL (150-400); White Blood Cell Count 8.4 X10^3/uL (4.5-11.0)
[2020-02-18 17:41] LABS: BUN Creatinine Ratio 28.2 (6-22); Blood Urea Nitrogen 29 mg/dL (9-20); Calcium 9.4 mg/dL (8.4-10.2); Carbon Dioxide 26 mmol/L (22-32); Chloride 101 mmol/L (98-107); Estimated Glomerular Filt Rate > 60.0 mL/min (>60); Glucose 92 mg/dL (80-110); HEMOLYSIS < 15 (0-50); Potassium 3.9 mmol/L (3.4-5.1); Sodium 135 mmol/L (137-145)
== END ==
PROVIDERS: Family Provider Family Medicine; PCP Family Medicine; Referring Provider Orthopaedic Surgery Orthopaedic Surgery of the Spine; Visit Provider Orthopaedic Surgery Orthopaedic Surgery of the Spine
DX: Z01.812 Encounter for preprocedural laboratory examination (principal)
CPT/HCPCS: 36415; 80048; 85025

== ENCOUNTER → 2020-03-08 14:05 | Outpatient (CLI) | payer OTHER, SELFPAY ==
[2019-07-02 17:18] VITALS: BMI 32.0
[2020-03-10 00:18] LABS: COVID19 Sendout Not Detected (Not Detect)
== END ==
PROVIDERS: Family Provider Family Medicine; PCP Family Medicine; Visit Provider Nurse Practitioner
DX: Z01.812 Encounter for preprocedural laboratory examination (principal)
CPT/HCPCS: 87635

== ENCOUNTER 2020-03-11 10:47 | Inpatient (IN) | payer OTHER, SELFPAY ==
[2019-07-02 17:18] VITALS: BMI 32.0
[2020-03-08 10:53] VITALS: BMI 32.0
[2020-03-11] VITALS (16 sets, daily range): BP systolic 90–151; BP diastolic 52–88; PULSE 58–80; RESP 6–18; TEMP 35.6–37.1; O2SAT 93–99; BMI 32.2
--- NOTE | 2020-03-11 | DI.RAD.S_ITS ---
PROCEDURE: XR LUMBAR SPINE 2-3V INDICATIONS: L1-S1HWR L4-5, L5-S1 RIGHT HEMILAMINECTOMY TECHNIQUE: 2 views of the lumbar spine were acquired. COMPARISON: [facility], CR, XR LUMBAR SPINE 2 OR 3 VIEWS, 01/01/2020, 10:20. [facility], CR, XR LUMBAR SPINE 2-3V, 07/02/2019, 10:16. [facility], CR, XR LUMBAR SPINE 2-3V, 06/06/2018, 13:39. FINDINGS: Bones: 5 pio-ldo-bfxbmpa vertebrae are present. There is normal bony alignment maintained by bilateral L1-S1 posterior fusion with no evidence of device loosening or disruption. Interbody cage disc prostheses devices are present at the intervening disc spaces as was previously the case 01/01/20. No vertebral body compression fractures. No suspicious bony lesions. Soft tissues: Overlying bowel gas pattern is normal. No suspicious soft tissue calcifications. IMPRESSION: Normal alignment maintained by previously present fixation devices along the lumbosacral spine from L1-S1. Reported new right hemilaminectomy procedure superimposed. Dictated by: Gagan Gallagher M.D. on 03/11/2020 at 17:13 Approved by: Gagan Gallagher M.D. on 03/11/2020 at 17:17
[2020-03-11] MEDS: diazePAM 5 MG TABLET PO (12:01)
--- NOTE | 2020-03-11 12:33 | PM.HP.1 ---
History of Present Illness History of Present Illness Date Patient Seen: 03/11/20 Time Patient Seen: 12:08 Date of Onset of Symptoms: 10/24/19 Chief complaint: [id number] Narrative: Mr. Gallagher is s/p multiple lumbar revision fusions. He had 2 months of good pain relief after the most recent surgery. He started to have acute back pain radiating down the right buttock 2 months post surgery. He did not improve after conservative care and has life limiting pain. Patient History Medical History (Updated 06/06/18 @ 17:27 by Francisca Overton MD) Anxiety (Acute) Arrhythmia (Acute) AV block, complete (Acute) Back pain (Acute) Cardiomyopathy (Acute) Chest heaviness (Acute) Chronic combined systolic and diastolic congestive heart failure (Acute) Coronary atherosclerosis of artery bypass graft (Acute) Dizziness (Acute) DVT (deep venous thrombosis) (Acute ~03/11/07) Dyspnea (Acute) Erectile dysfunction (Acute) GERD (gastroesophageal reflux disease) (Acute) H/O Doppler ultrasound (Acute) H/O echocardiogram (Acute) Heart failure (Acute) History of angina (Acute) History of changing skin mole (Acute ~05/23/18) History of esophageal spasm (Acute) History of nuclear stress test (Acute) Hyperlipidemia (Acute) LBBB (left bundle branch block) (Acute) Loosening of hardware in spine (Acute) Murmur (Acute) Myocardial infarction (Acute ~1985) Other specified forms of chronic ischemic heart disease (Acute) Pacemaker (Acute) Precordial pain (Acute) Shortness of breath (Acute) Spinal stenosis of lumbar region at multiple levels (Acute) Ventricular tachycardia (Acute) Surgical History History of lumbar spinal fusion (Acute) History of repair of rotator cuff (Acute) History of vasectomy (Acute) Hx of bilateral cataract extraction (Acute) Hx of total knee arthroplasty (Acute) S/P lumbar fusion (Acute 06/06/18) Family & Social History Social History: household members spouse Prior Living Arrangements House Tobacco & Substance use: Tobacco type cigarettes,pipe,cigars,cannabis/marijuana Smoking Status Former smoker alcohol intake current alcohol intake frequency holiday/special occasion Substance Use Type does not use,prescription drug Meds Home Medications and Allergies Home Medications Medication Instructions Recorded Confirmed Type alprazolam 0.5 - 1 mg PO Q8H PRN #0 tab 05/15/13 03/11/20 History carvedilol [Coreg] 25 mg PO BID #0 tab 05/15/13 03/11/20 History clopidogrel [Plavix] 75 mg PO QDAY #0 tab 05/15/13 03/11/20 History fenofibrate nanocrystallized 145 mg PO QPM #0 tab 05/15/13 03/11/20 History [Tricor] rosuvastatin [Crestor] 10 mg PO HS #0 tab 05/15/13 03/11/20 History spironolactone [Aldactone] 25 mg PO QDAY #0 tab 05/15/13 03/11/20 History aspirin 81 mg PO DAILY 05/29/18 03/11/20 History nitroglycerin 1 spray SUBLINGUAL Q5M PRN 05/29/18 03/11/20 History hydrocodone-acetaminophen 1 tab PO Q4H PRN 03/08/20 03/11/20 History methocarbamol 500 mg PO PRN PRN 03/08/20 History sacubitril-valsartan [Entresto] 1 tab PO BID 03/08/20 03/11/20 History sertraline 50 mg PO DAILY 03/08/20 03/11/20 History Allergies Allergy/AdvReac Type Severity Reaction Status Date / Time hydromorphone [HYDROMORPHONE] Allergy Intermediate He stops Verified 03/11/20 11:26 breathing when given too much per morphine [MORPHINE] Allergy Mild ITCHING Verified 03/11/20 11:26 WITH TOO MUCH ondansetron Allergy Mild Rash Verified 03/11/20 11:26 isosorbide AdvReac Intermediate Headache Verified 03/11/20 11:26 oxycodone [OXYCODONE] AdvReac Intermediate AGITATED, Verified 03/11/20 11:26 GI UPSET adhesive AdvReac Unknown Skin peels Verified 03/11/20 11:26 off, leaves scars Exam Vital Signs (past 8 hours): - 03/11/20 11:36 Temperature 97 F L Pulse Rate 58 L Respiratory Rate 16 Blood Pressure 106/62 Pulse Oximetry 95 Oxygen Delivery Method Room Air Extrem Other: Right LE with + straight leg raise, RLE with 4/5 in EHL and TA motor strength, pain with ROM test bilateral low back at lumbosacral junction right side worse than left. Sensiblity decreased in right L4, L5 dermatome Assessment & Plan Assessment & Plan narrative: 75 yo M with recurrent lumbar radiculopathy with temporary relief and recurrent severe symptoms in his RLE. He failed additional treatment options. After discussing risks and benefits of treatment options, patient elected to proceed with surgery. Additional risks involving COVID-19 was discussed, patient understands. He is scheduled for lumbar HWR and re-insertion, revision laminectomies, revision fusion. COVID-19 COVID-19 status: Negative Result date/Date tested (Pos, Neg/Pending): 03/09/20
[2020-03-11] MEDS: CEFAZOLIN 2 GM/100 ML FROZ.PIGGY IV ×2 (13:40→21:46)
[2020-03-11] MEDS: ACETAMINOPHEN IV 1,000 MG/100 ML VIAL 400 MG IV (14:30)
[2020-03-11] MEDS: LACTATED RINGERS 1,000 ML 42 ML IV (15:02)
[2020-03-11] MEDS: BUPIVACAINE 0.25% W/ EPI 30 ML VIAL INJ (15:06)
[2020-03-11] MEDS: BUPIVACAINE LIPOSOME 266 MG/20 ML VIAL INJ (15:06)
--- NOTE | 2020-03-11 16:22 | PM.OP.1 ---
Operative Date/Time/Diagnoses Date of procedure: 03/11/20 Time of procedure: 15:00 Pre-op diagnosis: 1. Lumbar spinal stenosis 2. Lumbar spondylosis with radiculopathy Post-op diagnosis: same Procedure & Clinicians Procedure: 1. L1-S1 posterior segmental instrumentation removal 2. L4-5, L5-S1 revision laminectomy with exploration of fusion 3. L1-2, L2-3, L3-4, L4-5, L5-S1 posterior segmental instrumentation with pedicle screw placement 4. L4-5, L5-S1 posterolatearl fusion 5. [place] of bone marrow from iliac crest through a separate incision 6. Utilization of microsurgical technique and operating microscope Same procedure as scheduled: Yes Indications: Patient has been having chronic back pain and worsening lumbar radiculopathy. Patient failed multiple conservative management with worsening pain weakness and numbness in her lower extremity. Patient has been having difficulty performing activity of daily living. After discussing risks benefits of treatment options, patient elected proceed with surgery. Surgeon: Harriet Hidalgo Locomotive Engineer Diesel: Shirley Mosher'Brien Click Yes if Unassisted: No Anesthesia Type: General Operative Notes Closure Type: primary Specimen(s): none sent Prosthetic devices, grafts, tissues, transplants, or devices: Globus revolve screws, Rise cages Applied: catheter Estimated Blood Loss (mL): 100 Blood products transfused: none Procedure in detail: Patient was seen in the preoperative area. Risks and benefits of the surgery was discussed with the patient. Informed consent was obtained from the patient and placed in the chart. Surgical site was marked. Patient was taken to the operative room. General anesthesia was administered. Prophylactic antibiotic was given to the patient less than 30 min before the incision was made. Patient was placed into a prone position on the Tyler table. Patient's back was then prepped and draped in the sterile fashion. Time-out was performed at this time. Using patient's previous scar incision was made over the L1-S1 interval on the right side. Fascia was incised in line with skin incision. Patient's previously placed hardware over the L1-S1 level was identified by dissecting down to the level the hardware using a Bovie and a Rasheed. The locking caps which was removed using globus screwdriver. The locking ayse was then removed from the tulips of the pedicle screws using a Pita. The pedicle screws were then removed using the screwdriver. The screws were found to have good purchase except at S1 screw on the right. The Globus and MARS retractors was then placed into the wound and docked onto the L4 and L5 lamina using C-arm guidance. Using microsurgical technique and operating microscope a laminectomy facetectomy was performed by removing the L4 and L5 lamina and the L4-5 and L5-S1 facet. The neural foramen was palpated using non nerve probe. The foramen L4-5 L5-S1 level was fully decompressed after the laminectomy facetectomy was completed. After the laminectomy and facetectomy was completed, the fusion mass was explored and was found have visible motion indicating pseudoarthrosis at the L4-5 and L5-S1 level. Globus MARS retractor was inserted and docked onto the L4-5 L5-S1 posterolateral gutter. Using the power drill, posterior-lateral decortication was performed at L4-5 L5-S1 level until bleeding cortical bone was identified. The remaining bone grafting material was placed into the L4-5 L5-S1 posterior lateral gutter he order to accomplish posterolateral fusion at the L4-5 L5-S1 level. Using the double C-arm technique, pedicle screws were placed into the L1-L2-L3-L4 L5 and S1 pedicles bilaterally. This was done by placing the Jamshidi needle into the pedicles, then placing the guidewires over the Jamshidi needle, and finally placing the cannulated screws over the guidewires bilaterally. After the pedicle screws were placed, a titanium ayse was locked into the heads of the pedicle screws using locking caps and torque limiting screwdriver. All screws placed had good purchase on Sunday were inserted. After all the hardware was placed, and confirmed with AP and lateral C-arm imaging, the wound was then irrigated with sterile normal saline and packed with Ray-Reid gauze for 3 min to accomplish hemostasis. After the gauze was removed the deep fascia was closed with #1 Vicryl suture. The subcutaneous layer was closed with 2-0 Vicryl. The skin was closed with skin michelle. Patient tolerated the procedure well. There were no complications. Per [employer]est[employer] recommendation, patient will be admitted to the ICU for cardiac monitoring. Patient did not have active issues during surgery. The admission to ICU its for precaution purpose due to patient's complicated cardiac history and patient has complete dependency on his pacemaker. Complications: none Post-operative Condition: stable Disposition: ICU Plan for aftercare: Admit to ICU for cardiac monitoring and medical management
[2020-03-11] MEDS: fentaNYL 100 MCG/2 ML INJ IV ×3 (16:52→17:05)
--- NOTE | 2020-03-11 17:43 | SUR.PHASEI ---
Pt medicated with [id number] with good response. Pt had more discomfort w/ thorpe than back. Urine draining clear yellow urine. Report to [facility] Arizmendi.
--- NOTE | 2020-03-11 17:45 | P.CONS_ITS ---
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 During his surgery his pacemaker was switched to DOO mode to avoid issues with electrocautery. He was then reprogrammed after surgery in the PACU to his usual settings. Patient was placed on an arterial line by Anesthesia, and will be in the ICU overnight for monitoring given his significant cardiac history. He was stable during his operative course, and was stable in the PACU as well. Medicine was consulted for assistance with management given the patient's cardiac history. Prior to surgery, upon review of the patient's cardiac clearance he has been asymptomatic from his heart failure and had been medically optimized per his acid splicer. Meds Home Medications and Allergies Home Medications Medication Instructions Recorded Confirmed Type alprazolam 0.5 - 1 mg PO Q8H PRN #0 tab 05/15/13 03/11/20 History carvedilol [Coreg] 25 mg PO BID #0 tab 05/15/13 03/11/20 History clopidogrel [Plavix] 75 mg PO QDAY #0 tab 05/15/13 03/11/20 History fenofibrate nanocrystallized 145 mg PO QPM #0 tab 05/15/13 03/11/20 History [Tricor] rosuvastatin [Crestor] 10 mg PO HS #0 tab 05/15/13 03/11/20 History spironolactone [Aldactone] 25 mg PO QDAY #0 tab 05/15/13 03/11/20 History aspirin 81 mg PO DAILY 05/29/18 03/11/20 History nitroglycerin 1 spray SUBLINGUAL Q5M PRN 05/29/18 03/11/20 History hydrocodone-acetaminophen 1 tab PO Q4H PRN 03/08/20 03/11/20 History methocarbamol 500 mg PO PRN PRN 03/08/20 History sacubitril-valsartan [Entresto] 1 tab PO BID 03/08/20 03/11/20 History sertraline 50 mg PO DAILY 03/08/20 03/11/20 History Allergies Allergy/AdvReac Type Severity Reaction Status Date / Time hydromorphone [HYDROMORPHONE] Allergy Intermediate He stops Verified 03/11/20 11:26 breathing when given too much per morphine [MORPHINE] Allergy Mild ITCHING Verified 03/11/20 11:26 WITH TOO MUCH ondansetron Allergy Mild Rash Verified 03/11/20 11:26 isosorbide AdvReac Intermediate Headache Verified 03/11/20 11:26 oxycodone [OXYCODONE] AdvReac Intermediate AGITATED, Verified 03/11/20 11:26 GI UPSET adhesive AdvReac Unknown Skin peels Verified 03/11/20 11:26 off, leaves scars Review of Systems Review of Systems Narrative: All other systems reviewed with the patient and are negative unless otherwise stated. Exam Vital Signs (past 8 hours): - 03/11/20 11:36 03/11/20 16:42 03/11/20 16:48 Temperature 97 F L 97.3 F L Pulse Rate 58 L 80 80 Respiratory Rate 16 11 L 11 L Blood Pressure 106/62 130/81 90/65 Pulse Oximetry 95 94 93 03/11/20 16:50 03/11/20 17:02 03/11/20 17:17 Temperature 98.7 F Pulse Rate 80 80 67 Respiratory Rate 11 L 11 L 6 L Blood Pressure 151/63 H 134/88 142/77 H Pulse Oximetry 93 97 98 03/11/20 17:38 Temperature 97.8 F Pulse Rate 65 Respiratory Rate 10 L Blood Pressure 133/71 Pulse Oximetry 98 Oxygen Delivery Method Nasal Cannula Oxygen Flow Rate 2 Narrative Exam Narrative: GENERAL APPEARANCE: Well developed, well nourished, in no acute distress. Slightly drowsy after surgery. SKIN: Inspection of the skin reveals no rashes, ulcerations or petechiae. HEENT: Normocephalic atraumatic, extraocular muscles are intact, oropharynx is clear and mucous membranes are moist, neck is supple without adenopathy NECK: Supple and symmetric. There was no thyroid enlargement, and no tenderness, or masses were felt. CHEST: Normal AP diameter and normal contour without any kyphoscoliosis. LUNGS: Auscultation of the lungs revealed no wheezes, rhonchi, or rales. CARDIOVASCULAR: There was a regular rate and rhythm without any murmurs, gallops, rubs. Peripheral pulses were 2+ and symmetric. ABDOMEN: Soft and nontender with normal bowel sounds. No ascites was noted. MUSCULOSKELETAL: There was no tenderness or effusions noted bilateral lower extremities. Muscle strength and tone were normal. EXTREMITIES: No cyanosis, clubbing or edema. NEUROLOGIC: Alert and oriented x 3. Normal affect. Strength is +5/5 in the Upper Extremities and Lower Extremities Bilaterally. Sensation to touch was normal. 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 Medicine was consulted for assistance with management given the patient's heart history. He is being transferred to the ICU with an arterial line for monitoring following his operation. He is currently hemodynamically stable and pacemaker has been switch back to his usual settings. 1. Lumbar spinal stenosis with radiculopathy - s/p L1-S1 posterior instrumentation removal, L4-S1 revision laminectomy, L1- S1 instrumentation, and L4-S1 repeat fusion. - management per Orthopedic / spine surgery, Dr. Hidalgo. - pain control per primary 2. Ischemic cardiomyopathy, chronic HFrEF - EF 30%, last TTE 07/04/18. - per cardiology documentation ([facility]) no pre-operative cardiac symptoms of dyspnea on exertion, shortness of breath, or edema. - resume entresto if blood pressure allows, separate coreg and entresto by at least two hours per (please see medication list brought by patient's ) - continue telemetry - continue asa as soon as able per orthopedic surgery as well as plavix when able. - Continue coreg 25 mg BID, crestor 20, Tricor 145, aldactone 25. - monitor for signs of chest pain, or post operative OH. 3. History of SVT as well as complete AV block, s/p Bi-V PPM. - kept on Arterial line monitoring per anesthesia, until AM, if remains stable can discontinue. - continue telemetry - patient is paced atrially 25% of the time per rep, 100% ventricularly. 4. SOURAV, chronic - continue home CPAP at night. Diet: per primary team Medicine will continue to follow Code: Full, surrogate decision maker is that patient's . COVID-19 COVID-19 status: Negative
--- NOTE | 2020-03-11 18:32 | SUR.PHASEI ---
Pt transport up to room on moniter and o2. Pt left w/ Kyleigh and left in stable condition. Bed low, locked and call campuzano in reach.
[2020-03-11] MEDS: SODIUM CHLORIDE 0.9% 1,000 ML 100 ML IV (20:22)
[2020-03-11] MEDS: carvediloL 25 MG TABLET PO (20:22)
[2020-03-11] MEDS: ACETAMINOPHEN 325 MG TABLET 650 MG PO (20:23)
[2020-03-11 20:48] LABS: HCO3 ABG 22 mmol/L (22-26); PCO2 ABG 43.7 mmHg (35-45); PO2 ABG 98 mmHg (80-100); TCO2 ABG 24 mmol/L (21-31); pH ABG 7.32 (7.35-7.45)
[2020-03-11 20:49] LABS: Fractionated Inspired Oxygen 28; Oxygen Saturation ABG 97 % (95-100)
[2020-03-11] MEDS: HYDROCODONE/ACET 5/325 TABLET 2 TAB PO (21:30)
[2020-03-11] MEDS: DOCUSATE 100 MG CAPSULE PO (21:30)
[2020-03-11] MEDS: ROSUVASTATIN 10 MG TABLET PO (21:30)
[2020-03-11] MEDS: SENNOSIDES 8.6 MG TABLET 17.2 MG PO (21:30)
[2020-03-11] MEDS: FENOFIBRATE 145 MG TABLET PO (21:33)
--- NOTE | 2020-03-11 22:11 | PC.NURSE ---
2200- Patient requests Art Line be removed. Patient states he feels the catheter is pressing on a nerve causing him pain in his hand and fingers. Order rec and line discontinued per order. Pressure dressing applied.
[2020-03-11] MEDS: ENTRESTO 1 EACH PO (23:00)
[2020-03-12] MEDS: ALPRAZolam 0.5 MG TABLET PO ×2 (01:28→09:14)
[2020-03-12] MEDS: hydrOXYzine pamoate 25 MG CAPSULE PO (01:28)
[2020-03-12] MEDS: HYDROCODONE/ACET 5/325 TABLET 2 TAB PO ×4 (01:28→12:47)
[2020-03-12 05:02] LABS: Hemoglobin 11.6 g/dL (13.5-17.5)
[2020-03-12 05:23] VITALS: BP 106/56; PULSE 66; RESP 16; TEMP 36.3; O2SAT 96
[2020-03-12 05:54] VITALS: O2SAT 95
[2020-03-12] MEDS: CEFAZOLIN 2 GM/100 ML FROZ.PIGGY IV (06:10)
--- NOTE | 2020-03-12 06:59 | PC.NURSE ---
Pt alert and oriented x4. Pain controlled with half dose of norco. 1pa with FWW to bedside commode. Back dressing saturated this am. Dressing changed, pt tolerated well.
[2020-03-12 08:44] VITALS: BP 115/61; PULSE 17; RESP 64; TEMP 36.6; O2SAT 98
[2020-03-12] MEDS: SPIRONOLACTONE 25 MG TABLET PO (08:47)
[2020-03-12] MEDS: ASPIRIN EC 81 MG TABLET PO (08:47)
--- NOTE | 2020-03-12 09:27 | P.PN_ITS ---
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 During his surgery his pacemaker was switched to DOO mode to avoid issues with electrocautery. He was then reprogrammed after surgery in the PACU to his usual settings. Patient had an A-line placed for monitoring overnight, which showed concordance with blood pressures. He was complaining of discomfort in his right arm overnight, and asked to have the line removed, and given no acute issues it was. He is been up ambulating and feels quite well. He denies any complaints this morning of chest pain or pressure, nausea, vomiting. He was about to eat breakfast but stated he was hungry. Exam Vital Signs (past 8 hours): - 03/12/20 05:23 03/12/20 05:54 03/12/20 08:44 Temperature 97.4 F L 97.8 F Pulse Rate 66 17 L Respiratory Rate 16 64 H Blood Pressure 106/56 L 115/61 Pulse Oximetry 96 95 98 Oxygen Delivery Method Nasal Cannula Oxygen Flow Rate 0 Narrative Exam Narrative: GENERAL APPEARANCE: Well developed, well nourished, in no acute distress. Slightly drowsy after surgery. SKIN: Inspection of the skin reveals no rashes, ulcerations or petechiae. HEENT: Normocephalic atraumatic, extraocular muscles are intact, oropharynx is clear and mucous membranes are moist, neck is supple without adenopathy NECK: Supple and symmetric. There was no thyroid enlargement, and no tenderness, or masses were felt. CHEST: Normal AP diameter and normal contour without any kyphoscoliosis. LUNGS: Auscultation of the lungs revealed no wheezes, rhonchi, or rales. CARDIOVASCULAR: There was a regular rate and rhythm without any murmurs, gallops, rubs. Peripheral pulses were 2+ and symmetric. ABDOMEN: Soft and nontender with normal bowel sounds. No ascites was noted. MUSCULOSKELETAL: There was no tenderness or effusions noted bilateral lower extremities. Muscle strength and tone were normal. EXTREMITIES: No cyanosis, clubbing or edema. NEUROLOGIC: Alert and oriented x 3. Normal affect. Strength is +5/5 in the Upper Extremities and Lower Extremities Bilaterally. Sensation to touch was normal. 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 Medicine was consulted for assistance with management given the patient's heart history. He is being transferred to the ICU with an arterial line for monitoring following his operation. He is currently hemodynamically stable and pacemaker has been switched back to his usual settings. He has been asymptomatic post operatively and is pacemaker dependent. He can safely discharge from medicine perspective. 1. Lumbar spinal stenosis with radiculopathy - s/p L1-S1 posterior instrumentation removal, L4-S1 revision laminectomy, L1- S1 instrumentation, and L4-S1 repeat fusion. - management per Orthopedic / spine surgery, Dr. Hidalgo. - pain control per primary 2. Ischemic cardiomyopathy, chronic HFrEF - EF 30%, last TTE 07/04/18. - per cardiology documentation ([facility]) no pre-operative cardiac symptoms of dyspnea on exertion, shortness of breath, or edema. - resume entresto if blood pressure allows, separate coreg and entresto by at least two hours per (please see medication list brought by patient's ) - continue asa as soon as able per orthopedic surgery as well as plavix when able. - Continue coreg 25 mg BID, crestor 20, Tricor 145, aldactone 25. 3. History of SVT as well as complete AV block, s/p Bi-V PPM. - kept on Arterial line monitoring without events. - patient is paced atrially 25% of the time per rep, 100% ventricularly. 4. SOURAV, chronic - continue home CPAP at night. Diet: per primary team Medicine will continue to follow while admitted. Agree with plan for discharge home. Code: Full, surrogate decision maker is that patient's . COVID-19 COVID-19 status: Negative
--- NOTE | 2020-03-12 11:00 | OT.IP.EVAL ---
Current Diagnoses Spondylosis without myelopathy or radiculopathy, lumbar region (03/11/20) Spinal stenosis, lumbar region with neurogenic claudication (03/11/20) Other mechanical complication of other internal orthopedic devices, implants and grafts, initial encounter (03/11/20) Surgery Performed Operation Date: 03/11/20 12:15 Actual Procedures p Lumbar Hardware removal and reinsertion, revision laminectomy and posterior fusion L1-S1(Right) - Harriet Hidalgo MD Past Medical History (Last Reviewed 06/06/18 @ 17:17 by Francisca Overton MD) Anxiety (Acute) Arrhythmia (Acute) AV block, complete (Acute) Back pain (Acute) Cardiomyopathy (Acute) Chest heaviness (Acute) Chronic combined systolic and diastolic congestive heart failure (Acute) Coronary atherosclerosis of artery bypass graft (Acute) Dizziness (Acute) DVT (deep venous thrombosis) (Acute ~03/11/07) Dyspnea (Acute) Erectile dysfunction (Acute) GERD (gastroesophageal reflux disease) (Acute) H/O Doppler ultrasound (Acute) H/O echocardiogram (Acute) Heart failure (Acute) History of angina (Acute) History of changing skin mole (Acute ~05/23/18) History of esophageal spasm (Acute) History of nuclear stress test (Acute) Hyperlipidemia (Acute) LBBB (left bundle branch block) (Acute) Loosening of hardware in spine (Acute) Murmur (Acute) Myocardial infarction (Acute ~1985) Other specified forms of chronic ischemic heart disease (Acute) Pacemaker (Acute) Precordial pain (Acute) Shortness of breath (Acute) Spinal stenosis of lumbar region at multiple levels (Acute) Ventricular tachycardia (Acute) Surgical History (Last Reviewed 07/02/19 @ 17:48 by Francisca Overton MD) History of lumbar spinal fusion (Acute) History of repair of rotator cuff (Acute) History of vasectomy (Acute) Hx of bilateral cataract extraction (Acute) Hx of total knee arthroplasty (Acute) S/P lumbar fusion (Acute 06/06/18) Occupational Therapy Inpatient Evaluation/Re-Eval M1 PT/OT-IP Prior Functional Status Start: 03/12/20 11:49 Freq: NEEDED Status: Active Protocol: Document 03/12/20 11:49 CGR (Rec: 03/12/20 12:06 CGR [email or web address]) Medical Review Prior Functional Status Medical History Reviewed Yes Communication Pt is an effective verbal communicator. Pt is [place] [employer] and typically wears hearing aids but does not have them in the hospital at this time. Mobility and Gait Pt was ambulating in the home with a FWW, outside with 2 walking sticks and for longer distances outside he used a 4 beckford (ATV). Activities of Daily Living and IADL's Pt states his was helping him with LB dressing, cooking , cleaning, and shopping. Social History Household Members spouse Living Arrangements House Number of Floors (Floors) One Floor Number of Stairs To Enter/Railing? 2 steps without rails. Home Environment High Toilet,Walk in Shower,Tub /Shower Home Equipment Front Wheel Walker,Production Sampler, Sock Aid Employment Status Retired Additional Social History Comment Pt lives with his Ana who is able to assist with ADLs as needed. M2 OT-IP Current Condition Start: 03/12/20 11:49 Freq: Status: Active Protocol: Document 03/12/20 11:49 CGR (Rec: 03/12/20 12:06 CGR [email or web address]) Occupational Therapy Current Condition Current Condition Evaluation Date 03/12/20 Treatment Diagnosis L1-S1 back sx Diagnosis Onset Date 03/11/20 Post Operative Precautions Lumbar Precautions Log Roll,No Twisting,Limit Bending,Lifting Restriction of 10 lbs,Gait Belt above Incisional Area M3 OT- IP Subjective and Pain Start: 03/12/20 11:49 Freq: Status: Active Protocol: Document 03/12/20 11:49 CGR (Rec: 03/12/20 12:06 CGR [email or web address]) OT- Subjective Occupational Therapy Visit Type Type Initial Evaluation Visit Start Time 10:44 Visit Stop Time 11:00 Total Visit Minutes 16 OT Pain Assessment Pain When Pain Assessed During Mobility Pain Present Pain Present Pain Reported Location Lower Back Intensity 4 Scale Used Numeric (0 - 10) Management Techniques Modification of Treatment,Re- positioning,Timing of Activity with Medications M4 OT- IP ADL's Start: 03/12/20 11:49 Freq: Status: Active Protocol: Document 03/12/20 11:49 CGR (Rec: 03/12/20 12:06 CGR [email or web address]) OT LCD-Rddk-Yeulrsw Comments OT Self-Feeding Comments Not meal time OT ADL-Grooming General Evaluation Grooming Ability Independent Comments OT Grooming Comments standing at sink OT ADL-Oral Care Comments Oral Care Comments not performed OT ADL-Dressing General Eval Lower Body Dressing Ability Maximum Assistance Comments OT Dressing Comments Pt states he has the necessary equipment to perform LB dressing but his has been performing for him and he declined a reteaching. OT ADL-Toileting General Evaluation Toileting Ability Independent Comments OT Toileting Comments simulated seated on toielt. Pt requested to return to toilet for BM at end of session. Notified nursing that pt was left sitting on toilet with call button/pull cord in hand. OT ADL-Bathing Comments OT Bathing Comments Not performed M5 OT- IP IADL's Start: 03/12/20 11:49 Freq: Status: Active Protocol: Document 03/12/20 11:49 CGR (Rec: 03/12/20 12:06 CGR [email or web address]) OT-Instrumental Activities of Daily Living Deficits IADL Deficits Identified Deficits Home Safety Awareness Awareness of Need for Assistance at Home Good Awareness Ability to Problem Solve Emergency Able to Problem Solve Situations Medication Management Medication Management No Deficits Identified Money Management Money Management No Deficits Identified Meal Preparation Meal Preparation Caregiver Provides Assist Brand Executive Brand Executive Caregiver Provides Assist Driving Driving Comments Pt is still an active courtesy bus driver. M6 OT- IP Functional Cognition Start: 03/12/20 11:49 Freq: Status: Active Protocol: Document 03/12/20 11:49 CGR (Rec: 03/12/20 12:06 CGR [email or web address]) Cognitive Factors Limiting Selfcare Function Cognitive Ability Level of Alertness Alert Patient Orientation Name,Age,Birthday,Month,Date, Year,Day of Week,Place, Situation Attention Span Ability Capable of Focused Attention, Capable of Sustained Attention Ability to Follow Commands Able to Follow One Step Commands OT- Vision and Hearing OT- Hearing Assessment OT- Hearing Assessment Hearing Impaired,Use of Hearing Aids OT- Vision Assessment Visual Acuity Glasses All The Time Visual Attentiveness WFL Occular Pursuits WFL Vision Assessment Comments Pt has bifocals M7 OT- IP Mobility and Balance Start: 03/12/20 11:49 Freq: Status: Active Protocol: Document 03/12/20 11:49 CGR (Rec: 03/12/20 12:06 CGR [email or web address]) OT- Bed Mobility Assessment Rolling Type of Rolling Log Rolling,Roll to Left Level of Assistance Standby Assistance Supine to Sit Supine to Sit Assist Standby Assistance Scooting Scooting to Edge of Bed Standby Assistance OT-Transfer Assessment Sit to and From Stand Sit to and from Stand Standby Assistance Transfers Transfer Ability Standby Assistance Technique Transfer Destination Bed,Chair,Toilet Transfer Technique Stand Step Pivot Devices Transfer Assistive Devices Gait Belt,Front Wheeled Walker OT- Gait Assessment Gait Gait Assistance Required: Standby Assistance Assistive Devices Assistive Device Gait Belt,Front Wheeled Walker Comments Gait Ability Comments Pt needed VC to walk into the bathroom going fowards, he had started to go in backawrds to back up to the toilet. Pt able to follow commands to turn around at the toilet and states understanding of safety concerns with ambulating backwards. OT- Balance Assessment Sitting Balance and Reactions Static Sitting Balance Ability Normal Dynamic Sitting Balance Ability Good M8 OT- IP Objective Assessments Start: 03/12/20 11:49 Freq: Status: Active Protocol: Document 03/12/20 11:49 CGR (Rec: 03/12/20 12:06 CGR [email or web address]) OT Gross Range of Motion Upper Extremity Range of Motion Assessment Within Functional Limits OT Strength Upper Extremity Strength Assessment Within Functional Limits OT- Coordination Assessment Upper Extremity Finger to Nose Test Within Functional Limits Finger Tapping Test Within Functional Limits OT-Muscle Tone Assessment Muscle Tone WNL Yes OT Sensation Assessment Edema Edema Absent M9 OT- IP Assessment and Plan Start: 03/12/20 11:49 Freq: Status: Active Protocol: Document 03/12/20 11:49 CGR (Rec: 03/12/20 12:06 CGR [email or web address]) OT Summary Assessment and Plan Potential Rehabilitation Potential Excellent Analytic Complexity at Evaluation Low Summary OT Impairments Pain,Functional Mobility, Grooming,Dressing,Toileting, Bathing,Shower Transfers, Activity Tolerance Progress Towards Goals Progressing Toward Goals Assessment Summary Pt presents as a low complexity evaluation s/p L1- S1 back sx/revision. Pt is performing close to his baseline or better on most tasks as he states his pain is better today than prior to sx . Pt would benefit from another OT session for shower if pt is still here tomorrow. Goals Dressing Goal Standby Assistance,Production Sampler, Sock Aid Bathing Goal Independent Shower Transfer Goal Independent,Walk-in Shower, Shower Chair,Grab Bars Days to Meet Goals 2 Frequency of Treatment Frequency Of Treatment Once a Day Treatment Plan OT Treatment Plan ADL Training,Functional Mobility,Patient/Family Education,Discharge Planning Other Treatment Recommendations and Next shower Treatment Focus Discharge Recommendations OT Discharge Recommendations Home with Assistance Home Equipment Needs shower chair Transportation Needs at Discharge Private Vehicle
--- NOTE | 2020-03-12 11:09 | PT.IIE ---
Current Diagnoses Spondylosis without myelopathy or radiculopathy, lumbar region (03/11/20) Spinal stenosis, lumbar region with neurogenic claudication (03/11/20) Other mechanical complication of other internal orthopedic devices, implants and grafts, initial encounter (03/11/20) Surgery Performed Operation Date: 03/11/20 12:15 Actual Procedures p Lumbar Hardware removal and reinsertion, revision laminectomy and posterior fusion L1-S1(Right) - Harriet Hidalgo MD Surgical History (Last Reviewed 07/02/19 @ 17:48 by Francisca Overton MD) History of lumbar spinal fusion (Acute) History of repair of rotator cuff (Acute) History of vasectomy (Acute) Hx of bilateral cataract extraction (Acute) Hx of total knee arthroplasty (Acute) S/P lumbar fusion (Acute 06/06/18) Medical History (Last Reviewed 06/06/18 @ 17:17 by Francisca Overton MD) Anxiety (Acute) Arrhythmia (Acute) AV block, complete (Acute) Back pain (Acute) Cardiomyopathy (Acute) Chest heaviness (Acute) Chronic combined systolic and diastolic congestive heart failure (Acute) Coronary atherosclerosis of artery bypass graft (Acute) Dizziness (Acute) DVT (deep venous thrombosis) (Acute ~03/11/07) Dyspnea (Acute) Erectile dysfunction (Acute) GERD (gastroesophageal reflux disease) (Acute) H/O Doppler ultrasound (Acute) H/O echocardiogram (Acute) Heart failure (Acute) History of angina (Acute) History of changing skin mole (Acute ~05/23/18) History of esophageal spasm (Acute) History of nuclear stress test (Acute) Hyperlipidemia (Acute) LBBB (left bundle branch block) (Acute) Loosening of hardware in spine (Acute) Murmur (Acute) Myocardial infarction (Acute ~1985) Other specified forms of chronic ischemic heart disease (Acute) Pacemaker (Acute) Precordial pain (Acute) Shortness of breath (Acute) Spinal stenosis of lumbar region at multiple levels (Acute) Ventricular tachycardia (Acute) Physical Therapy Inpatient Evaluation/Re-Eval M1 PT/OT-IP Prior Functional Status Start: 03/12/20 11:49 Freq: NEEDED Status: Active Protocol: Document 03/12/20 11:49 CGR (Rec: 03/12/20 12:06 CGR [id number]) Medical Review Prior Functional Status Medical History Reviewed Yes Communication Pt is an effective verbal communicator. Pt is [place] and typically wears hearing aids but does not have them in the hospital at this time. Mobility and Gait Pt was ambulating in the home with a FWW, outside with 2 walking sticks and for longer distances outside he used a 4 beckford (ATV). Activities of Daily Living and IADL's Pt states his was helping him with LB dressing, cooking , cleaning, and shopping. Social History Household Members spouse Living Arrangements House Number of Floors (Floors) One Floor Number of Stairs To Enter/Railing? 2 steps without rails. Home Environment High Toilet,Walk in Shower,Tub /Shower Home Equipment Front Wheel Walker,Director Of Marketing Operations, Sock Aid Employment Status Retired Additional Social History Comment Pt lives with his Ana who is able to assist with ADLs as needed. M1 PT/OT-IP Prior Functional Status Start: 03/12/20 13:44 Freq: NEEDED Status: Active Protocol: Document 03/12/20 11:09 AB (Rec: 03/12/20 13:56 [email or web address]) Medical Review Prior Functional Status Medical History Reviewed Yes Communication able to make needs know; [place] Mobility and Gait pt stated that he is modified independent with all mobilities and ambulation using FWW indoors and walking sticks for outdoor mobility Activities of Daily Living and IADL's per OT's note:Pt states his was helping him with LB dressing, cooking, cleaning, and shopping. Social History Household Members spouse Living Arrangements House Number of Floors (Floors) One Floor Number of Stairs To Enter/Railing? 2 steps platform steps to foyer 1 step to enter Home Environment High Toilet,Walk in Shower,Tub /Shower Home Equipment Front Wheel Walker,Hand Held Shower,Director Of Marketing Operations,Sock Aid,Grab Bars In Shower Employment Status Retired M2 PT-IP Current Condition Start: 03/12/20 13:44 Freq: NEEDED Status: Active Protocol: Document 03/12/20 11:09 AB (Rec: 03/12/20 13:56 [email or web address]) Physical Therapy Current Condition Current Condition Evaluation Date 03/12/20 Treatment Diagnosis s/p L4-S1 postlat fusion/rev lami; difficulty in walking Onset Date 03/11/20 Precautions Lumbar Precautions Log Roll,No Twisting,Limit Bending,Lifting Restriction of 10 lbs,Gait Belt above Incisional Area M3 PT-IP Subjective Start: 03/12/20 13:44 Freq: NEEDED Status: Active Protocol: Document 03/12/20 11:09 AB (Rec: 03/12/20 13:56 AB [email or web address]) Subjective Physical Therapy Visit Type Type Initial Evaluation Visit Start Time 11:09 Visit Stop Time 11:25 Total Visit Minutes 16 Number of FEE CLERK Visits 0 Physical Therapy Visit Comments Patient Comments agreeable to do PT Therapy Pain Assessment Pain When Pain Assessed At Rest Pain Present Pain Present Pain Reported Location Lower Back Intensity 4 Scale Used Numeric (0 - 10) Pain Management Techniques Re-positioning,Timing of Activity with Medications M4 PT-IP Mobility and Gait Start: 03/12/20 13:44 Freq: NEEDED Status: Active Protocol: Document 03/12/20 11:09 AB (Rec: 03/12/20 13:56 [email or web address]) PT-Bed Mobility Assessment Rolling Type of Rolling Log Rolling Supine to Sit Supine to Sit Standby Assistance Sit to Supine Sit to Supine Standby Assistance Scooting Scooting to Edge of Bed Standby Assistance PT-Transfer Assessment Sit to and From Stand Sit to and from Stand Standby Assistance Equipment Transfer Assistive Device Gait Belt,Front Wheeled Walker Orthotic/Prosthetic Devices or Brace: No Comments Mobility Comments pt was able to recall back precautions. completed supine to sit log roll SBA without cues. completed sit to stand SBA and ambulated in room using FWW SBA. pt requested to go back to bed and completed sit to supine SBA. positioned pt on bed. call light and table placed wtihin reach. Gait Assessment Gait Gait Assistance Required: Standby Assistance Distance (Feet) 35 Able to Maintain Weight Bearing Status Yes During Gait Assistive Devices Assistive Device Gait Belt,Front Wheeled Walker Orthotic/Prosthetic Devices or Brace: No Gait Deviations General Gait Pattern Flexed Trunk Factors Limiting Gait Function Factors Limiting Gait Function Decreased Activity Tolerance, Decreased Strength,Limited Range of Motion,Pain,Poor Balance,Poor Safety Awareness PT-Balance Assessment Sitting Balance and Reactions Static Sitting Balance Ability Good Dynamic Sitting Balance Ability Good Standing Balance and Reactions Static Standing Balance Ability Fair Dynamic Standing Balance Ability Fair Device Used FWW M5 PT-IP Objective Assessments Start: 03/12/20 13:44 Freq: NEEDED Status: Active Protocol: Document 03/12/20 11:09 AB (Rec: 03/12/20 13:56 [id number]) Orientation Orientation/Cognition Level of Alertness Alert Orientation Name,Place,Situation Language Function Ability Hard of Hearing Safety Awareness Understands Safety Issues Memory Description No Deficits Noted Gross Range of Motion Lower Extremity ROM Assessment Within Functional Limits Strength Lower Extremity Strength Assessment Within Functional Limits Coordination Assessment Gross Coordination Gross Coordination WNL Sensation Assessment Sensation Gross Sensation WNL Muscle Tone Muscle Tone WNL Yes M6 PT-IP Treatment Start: 03/12/20 13:44 Freq: NEEDED Status: Active Protocol: Document 03/12/20 11:09 AB (Rec: 03/12/20 13:56 AB [id number]) Physical Therapy Treatment Education Education Provided Precautions,Weight Bearing Status,Safety M7 PT-IP Assessment and Plan Start: 03/12/20 13:44 Freq: NEEDED Status: Active Protocol: Document 03/12/20 11:09 AB (Rec: 03/12/20 13:56 [email or web address]) PT Summary Assessment and Plan Potential Rehabilitation Potential Good Status of Condition at Evaluation Stable Summary Impairments Pain,ROM,Strength,Balance, Coordination,Sensation,Tone, Cognition,Bed Mobility, Transfers,Gait,Activity Tolerance Assessment Summary pt requiring SBA with mobility and plans to go home with spouse to assist him. stair climbing has to be completed prior to d/c and if able to perform safely, may go home when medically stable. Goals Bed Mobility Goal Independent Transfer Goal Independent,Front Wheeled Walker Gait Goal Independent,Front Wheel Walker Gait Distance 250 Other Goals up/down 2 platform steps using FWW SBA Days to Meet Goals 3 Frequency of Treatment Frequency Of Treatment Twice a Day Treatment Plan Physical Therapy Treatment Plan Bed Mobility Training,Transfer Training,Gait Training, Therapeutic Exercise,Balance Retraining,Post Op Education, Discharge Planning,Hot or Cold Pack,Neuromuscular Re-ed, Coordination Retraining,Manual Therapy Other Recommendations and Next Treatment stair climbing, ambulation Focus Recommendations To Nursing Amount of Assist Needed 1 Person Assist Discharge Recommendations PT Discharge Recommendations Home with Assistance Transportation Needs at Discharge Private Vehicle
--- NOTE | 2020-03-12 12:31 | P.PN_ITS ---
Exam Vital Signs (past 8 hours): - 03/12/20 05:23 03/12/20 05:54 03/12/20 08:44 Temperature 97.4 F L 97.8 F Pulse Rate 66 17 L Respiratory Rate 16 64 H Blood Pressure 106/56 L 115/61 Pulse Oximetry 96 95 98 Oxygen Delivery Method CPAP Oxygen Flow Rate 0 Objective Labs Result Diagrams: 03/12/20 04:48 Labs: Laboratory Results - last 24 hr 03/11/20 03/12/20 20:33 04:48 Hgb 11.6 L Hct 34.0 L ABG pH 7.32 L ABG pCO2 43.7 ABG pO2 98 ABG HCO3 22 ABG Total CO2 24 ABG O2 Saturation 97 ABG Base Excess -4.0 L FiO2 28 Assessment & Plan Assessment & Plan narrative: POD#1 s/p revision laminectomy and reinstrume ntation with fusion. Doing well and ambulated well with PT. Patient is cleared for D/c by PT/OT. Will discharge home today.
[2020-03-12] MEDS: ENTRESTO 1 EACH PO (12:39)
--- NOTE | 2020-03-12 12:53 | PC.NURSE ---
Nursing Am Shift Pt is A/o x4, able to move well with PT and pain controlled with one norco. Multiple previous back surgeries, and no concerns about d/c home today. Villegas removed, voiding well. Dr Hidalgo into see Pt and d/c orders written.
[2020-03-12 12:59] VITALS: BP 116/55; PULSE 67; RESP 17; TEMP 36.6; O2SAT 98
--- NOTE | 2020-03-12 15:02 | CM.DANOTE ---
Discharge Planning/Care Management DCP: assessment: case received, EMR reviewed. Discussed in Team Rounds. PT and OT were set to see pt today. Pt is a 75 year old male who admitted yesterday for a scheduled spinal surgery: Surgeon: Dr. Hidalgo Payer: [facility]. PCP: Purvi John PT did well in therapy today and was cleared for a d/c to home setting. His has been providing some assist at home and will continue to do so as pt recovers. Dr. Hidalgo did see pt today and ok'd d/c to home. Went to room to check in with pt: noted that he had already left for home in company of his . He will see Dr. Hidalgo in followup as per his pre-surgery plan. CM Discharge Assessment Start: 03/12/20 15:00 Freq: Status: Discharge Protocol: Document 03/12/20 15:00 ITV (Rec: 03/12/20 15:01 ITV [id number]) Discharge Planning Assessment History Provided By Medical Record Prior Living Arrangements House Household Members spouse Independent with ADL's No Is patient alert and oriented? Yes Discharge Plan Home Transportation Arrangement Spouse Review Status In Process Pre-Anesthesia Assessment Start: 03/08/20 10:53 Freq: Status: Discharge Protocol: Document 03/08/20 10:53 CAB (Rec: 03/08/20 12:44 CAB [id number]) Pre-Anesthesia Assessment Patient Information Reviewed Via Chart Review Diagnostic Results BMP/CMP,CBC Comment Labs @ [facility] 02/18/20, COVID screen not identified Primary Care Provider Purvi John Seen Specialist in Last 12 Months Yes Specialist Seen Dinkey Engine Operator,Orthopedist Primary Language Ivorian Preferred Language Ivorian Vegetable Farm Worker Required No Height 175.26 cm Weight 98.43 kg Body Mass Index (BMI) 32.0 Hearing Ability Hard of Hearing,Use of Hearing Aid Visual Assist Glasses Dentition Type Teeth, Natural Present,Partial - Lower Barriers to Learning Auditory,Reading skills,Visual Comment Dyslexia Hx Anesthesia Reactions No Hx Family Anesthesia Reaction No Hx Malignant Hyperthermia No Hx Blood Transfusions No Anesthesia Review Requested Yes: PAC courtesy re:Cardiac history Posting Machine Operator No alcohol intake current alcohol intake frequency holidays/special occasions only Smoking Status Former smoker Tobacco type cigarettes,pipe,cigars, cannabis/marijuana how long ago did patient quit smoking 1986 Substance Use Type does not use,prescription drug Pain Present Pain Reported Musculoskeletal Symptoms Abnormal Gait,Back Pain, Difficulty Walking,Joint Pain, Joint Stiffness,Joint Swelling ,Muscle Cramps,Myalgias,Neck Pain,Radiating Pain into Limb, Tremors History of Falling (Recent or History of Yes ) Patient is completely paralyzed or No completely immobile Prosthesis or Orthotic Device Cane Gait/Transferring Impaired Mental Status Oriented to own ability Comment Walks with a shuffle Is patient on oxygen? No Does patient have YU/SOB Yes: With heavy exertion Hx Sleep Apnea Yes CPAP/BIPAP use prescribed and used routinely Currently Taking a Beta Filomena Yes: Carvedilol Can You Climb a Flight of Stairs Without No: SOB w/ moderate vigor or SOB duration of walking Hx Chest Pain Yes: No CP since approx Oct or November Hx SOB Yes Hx Syncope or Dizziness No Anti-Coagulant Therapy Yes: Plavix-unknown what directions have been given to pt Has a Dinkey Engine Operator Yes: Dr. Verduzco Cardiac Testing Yes: See [facility] [employer] records; Nuc Stress high risk study Hx Pacemaker/ICD Yes: ICD Interrogation 04/03 sinus rhythm w/vent pacing Pacemaker Rep Required? Yes: Dulce notified today Comment Cardiac records scanned to record Diet Type At Home Regular dysphagia No Bladder Pattern Frequency,Nocturia,Urgency Urinary Catheter Present No Hx Urinary Self Catheterization No Diabetes No Hx Drug Resistant Organism No Presence of External or Internal Medical Yes: ICD, left knee prosthesis Devices , lumbar hardware Have you had any close contact with Unknown, chart review only someone diagnosed with COVID-19? Marital Status Lives With spouse Prior Living Arrangements House Number of Floors (Floors) One Floor Patient Discharge Plan Description Return Home Do You Have Any Spiritual Beliefs That No May Affect Your HC Choices? Do You Have Any Cultural Practices That No May Affect Your HC Choices? Emergency Contact Name Ana () Emergency Contact Advance Directives? No: Information mailed again out to Power of Legal Activity Adjudicator No
== END 2020-03-12 14:24 | disposition home or self-care (01) | DRG 460 ==
LOC: ICU 12:06 → AC 13:04 → ICU 03-12 10:03
PROVIDERS: Admitting Provider Orthopaedic Surgery Orthopaedic Surgery of the Spine; Family Provider Family Medicine; PCP Family Medicine; Referring Provider Orthopaedic Surgery Orthopaedic Surgery of the Spine; Visit Provider Orthopaedic Surgery Orthopaedic Surgery of the Spine
PROC: 0SG10J1 Fusion of 2 or more Lumbar Vertebral Joints with Synthetic Substitute, Posterior Approach, Posterior Column, Open Approach (ICD-10-PCS; principal; 2020-03-11 12:15)
DX: M48.061 Spinal stenosis, lumbar region without neurogenic claudication (principal); M96.0 Pseudarthrosis after fusion or arthrodesis; T84.498A Other mechanical complication of other internal orthopedic devices, implants and grafts, initial encounter; I44.2 Atrioventricular block, complete; I47.1 Supraventricular tachycardia; M47.26 Other spondylosis with radiculopathy, lumbar region; I25.5 Ischemic cardiomyopathy; I10 Essential (primary) hypertension; K21.9 Gastro-esophageal reflux disease without esophagitis; G47.33 Obstructive sleep apnea (adult) (pediatric); Z95.0 Presence of cardiac pacemaker; Z87.891 Personal history of nicotine dependence; Z01.812 Encounter for preprocedural laboratory examination; Z11.59 Encounter for screening for other viral diseases
CPT/HCPCS: 36415; 36600; 72100; 76000; 82805; 85014; 85018; 87635; 97161; 97165; C1776; C9290; J0131; J0330; J0690; J1100; J1170; J2310; J2405; J2704; J3010

== ENCOUNTER → 2021-07-15 13:16 | Outpatient (CLI) | payer OTHER, SELFPAY ==
[2020-03-11 18:28] VITALS: BMI 32.2
--- NOTE | 2021-07-15 | DI.CT.S_ITS ---
PROCEDURE: CT LUMBAR SPINE WO CON INDICATIONS: Postlaminectomy syndrome, not elsewhere classified TECHNIQUE: Noncontrast 3 mm thick sections acquired from the T12 level to the sacrum. Sagittal and coronal reformats were constructed. For radiation dose reduction, the following was used: automated exposure control. COMPARISON: [facility], CT, L-SPINE WITHOUT CONTRAST, 03/04/2014, 5:09. [facility], CT, CT MYELOGRAM LUMBAR SPINE, 05/12/2019, 13:34. [facility], CT, CT LUMBAR SPINE WITHOUT CONTRAST, 03/27/2019, 16:43. [facility], CT, CT LUMBAR SPINE WITHOUT CONTRAST, 03/13/2018, 13:41. [facility], NM, NM BONE SCAN 3 PHASE, 05/27/2021, 10:31. [facility], CT, CT LUMBAR SPINE WO CON, 01/12/2020, 11:22. [facility], CR, XR LUMBAR SPINE 2-3V, 03/11/2020, 15:47. [facility], CR, XR LUMBAR SPINE 2 OR 3 VIEWS, 06/23/2021, 11:36. FINDINGS: Image quality: There is artifact associated with the metallic hardware. Bones: Postoperative changes are seen, with bilateral pedicle screws at the L1 through S1 the levels. The screws appear well placed. Vertical fixation rods are seen. Disc spacers are seen throughout. Lucency is again seen adjacent to the S1 screws on both sides. No addition findings of hardware failure or hardware loosening are seen. There has been removal of portions of the posterior elements. Age-appropriate lower thoracic spine degenerative changes are seen. Mild grade 1 anterolisthesis is seen at L4-L5. T12-L1: No significant abnormality can be seen at this level. L1-L2: Mild generalized disc bulge is seen. Moderate bilateral neural foraminal narrowing is seen. No significant central canal narrowing can be seen. When comparison is made with the prior images, these findings are similar. L2-L3: Moderate loss of disc height is seen. Loss of disc signal is seen. Moderate bilateral neural foraminal narrowing is seen. Mild central canal narrowing can be seen. No significant change from the prior. L3-L4: [id number]-[id number] disc bulge can be seen at this level. There is [id number] right-sided and mild left-sided neural foraminal narrowing seen. The central canal is widely patent. No significant change from the prior. L4-L5: Moderate generalized disc bulge is seen. Moderate bilateral neural foraminal narrowing is seen. The central canal is widely patent. When comparison is made with the prior images, these findings are similar. L5-S1: Moderate generalized disc bulge is seen. There is moderate left-sided and no significant right-sided neural foraminal narrowing seen. No significant central canal narrowing is seen. No significant change from the prior. Soft tissues: No retroperitoneal masses or hematomas. Visualized aorta is normal in caliber. Dense atherosclerotic calcification is noted. AICD leads can be seen on the manufacturing engineering intern image. Sternotomy wires are seen. Cholecystectomy clips are seen. IMPRESSION: Extensive lumbosacral fixation hardware can be seen, with lucency again seen adjacent to the S1 screws. No additional findings of hardware failure or hardware loosening can be seen. Extensive degenerative changes are seen, which are similar to 2020. Dictated by: Cas Soria M.D. on 07/15/2021 at 15:49 Approved by: Cas Soria M.D. on 07/15/2021 at 15:57
== END ==
PROVIDERS: Family Provider Family Medicine; PCP Family Medicine; Referring Provider Orthopaedic Surgery Orthopaedic Surgery of the Spine; Visit Provider Orthopaedic Surgery Orthopaedic Surgery of the Spine
DX: M96.1 Postlaminectomy syndrome, not elsewhere classified (principal); M43.16 Spondylolisthesis, lumbar region; Z98.1 Arthrodesis status
CPT/HCPCS: 72131

== ENCOUNTER → 2021-12-05 12:40 | Outpatient (CLI) | payer OTHER, SELFPAY ==
[2020-03-11 18:28] VITALS: BMI 32.2
--- NOTE | 2021-12-05 | DI.RAD.S_ITS ---
PROCEDURE: FL KNEE INJECTION CT RT INDICATIONS: Pain in right knee COMPARISON: None. TECHNIQUE: The indications, alternatives, benefits, risks, and complications of the procedure were explained to the patient. Written informed consent was obtained and placed in the chart. The knee was examined fluoroscopically, and a site chosen for knee joint injection. The skin was prepped and draped in a sterile fashion, and 1% Lidocaine infiltrated from the skin down to the articular surface. A hypodermic needle was then introduced into the joint and iodinated contrast media was instilled to confirm the intra-articular needle tip placement. This was followed by approximately 50 mL dilute Omnipaque 300 containing iodinated contrast agent. The needle was removed and a bandage was applied. An Rayshawn wrap was then applied around the knee joint to keep the contrast from collecting in the suprapatellar recess. The patient experienced no complications throughout the procedure and left the fluoroscopic suite in no apparent distress. FINDINGS: Single fluoroscopic spot image demonstrates intra-articular location to injected iodinated contrast. IMPRESSION: Successful fluoroscopically guided administration of dilute Omnipaque 300 solution into the knee joint for MR arthrogram. Dictated by: Micheline James MD, PhD on 12/05/2021 at 15:05 Approved by: Micheline James MD, PhD on 12/05/2021 at 15:06
--- NOTE | 2021-12-05 13:34 | DI.CT.S_ITS ---
PROCEDURE: CT LE RT W CON INDICATIONS: Pain in right knee TECHNIQUE: After the intra-articular administration of 10 mL of contrast, 1-1.5 mm axial sections acquired through the knee, with 0.75 mm coronal and sagittal reformats. COMPARISON: None. FINDINGS: Image quality: Excellent. Cartilage: Small areas of fissuring are seen in the tricompartment hyaline cartilage. Thinning of the medial compartment hyaline cartilage. Menisci: Small foci of contrast extending into the posterior horns of the medial and lateral meniscus, concerning for tears. Meniscal root ligaments appear intact. Ligaments: Anterior and posterior cruciate ligaments appear intact. Medial and lateral collateral ligaments appear intact as well. Bones: No fractures. No suspicious bony lesions. Joint space: No Larose's cyst. No intra-articular bodies. IMPRESSION: 1. Small areas of fissuring in the tricompartment hyaline cartilage. 2. Suspected small tears in the posterior horns of the lateral and medial menisci. Dictated by: Eddie Bowles M.D. on 12/05/2021 at 16:02 Approved by: Eddie Bowles M.D. on 12/05/2021 at 16:11
== END ==
PROVIDERS: Family Provider Family Medicine; Referring Provider Student in an Organized Health Care Education/Training Program; Visit Provider Student in an Organized Health Care Education/Training Program
DX: M25.561 Pain in right knee (principal); G89.29 Other chronic pain
CPT/HCPCS: 27369; 73701; 77002